=== PATIENT | male | born 1975 | race Caucasian/White ===

== ENCOUNTER 2019-11-08 17:37 | Outpatient (CLI) | payer OTHER, SELFPAY ==
--- NOTE | ~2019-11-08 | XR_ITS ---
XR hand LT min 3V 11/08/2019 18:03 Indication: Left hand pain Procedure: 3 views left hand Comparison: No prior studies for comparison. Findings: There are mild degenerative changes of the first CMC joint. No acute fracture, subluxation or dislocation. No significant soft tissue abnormality. No radiopaque foreign bodies. There is mild d egenerative change of the first MCP joint. 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 Reviewed, dictated and finalized at location A. 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
== END 2019-11-08 17:38 | disposition home or self-care (01) ==
LOC: ANHIMG 17:47
PROVIDERS: PCP Family Medicine; Visit Provider Family Medicine
DX: M79.642 Pain in left hand (principal); M19.042 Primary osteoarthritis, left hand
CPT/HCPCS: 73130

== ENCOUNTER 2020-07-04 13:51 | Outpatient (CLI) | payer OTHER, SELFPAY ==
--- NOTE | ~2020-07-04 | XR_ITS ---
EXAMINATION: XR forearm RT 2V DATE: 07/04/2020 14:12 INDICATION: Right forearm pain. TECHNIQUE: 2 views of right forearm were obtained. COMPARISON: None. FINDINGS: Bone alignment is normal. No fracture. Joint spaces are well maintained. There is no elbow joint effusion. IMPRESSION: 1. No fracture. Reviewed, dictated and finalized at location A. IMPRESSION: 1. No fracture.
== END 2020-07-04 13:52 | disposition home or self-care (01) ==
LOC: ANHIMG 13:58
PROVIDERS: PCP Family Medicine; Visit Provider Nurse Practitioner Family
DX: M79.631 Pain in right forearm (principal)
CPT/HCPCS: 73090

== ENCOUNTER 2022-03-30 14:20 | Emergency (ER) | payer OTHER, SELFPAY ==
[2022-03-30 14:35] VITALS: BP 125/77; PULSE 85; RESP 16; TEMP 37
--- NOTE | 2022-03-30 14:47 | ED.SKABFB ---
HPI - Skin/Abscess/Foreign Bdy General Chief complaint: Skin/Abscess/Foreign Body Stated complaint: insect bite Time Seen by Provider: 03/30/22 14:47 History of Present Illness HPI narrative: Adam Montemayor is a 46 yo male with anxiety, HTN, seasonal allergies, remote back surgery, asthma, GERD, comes with small abscess to the left upper arm. Multiple small scabs to L lower arm Related Data Home Medications Medication Instructions Recorded Confirmed doxepin 10 mg capsule cap 03/30/22 03/30/22 ergocalciferol (vitamin D2) 1,250 cap 03/30/22 mcg (50,000 unit) capsule escitalopram oxalate 20 mg tablet tablet 03/30/22 gabapentin 600 mg tablet tablet 03/30/22 lisinopril 20 mg tablet tablet 03/30/22 loratadine 10 mg tablet tablet 03/30/22 meloxicam 15 mg tablet tablet 03/30/22 mometasone-formoterol HFA 100 inh inhalation 03/30/22 mcg-5 mcg/actuation aerosol inhaler (Dulera) montelukast 10 mg tablet tablet 03/30/22 oxycodone-acetaminophen 10 mg-325 tablet 03/30/22 mg tablet sucralfate 1 gram tablet tablet 03/30/22 triamcinolone acetonide 0.1 % ea topical 03/30/22 topical ointment Allergies Allergy/AdvReac Type Severity Reaction Status Date / Time No Known Allergies Allergy Verified 03/30/22 14:21 Review of Systems Review of Systems: CONSTITUTIONAL: Denies fever, chills, sweats. EYES: Denies visual changes, redness, discharge. ENT: Denies rhinorrhea, congestion, sore throat, otalgia. CARDIOVASCULAR: Denies chest pain, palpitations, edema. RESPIRATORY: Denies dyspnea, wheezing, cough GASTROINTESTINAL: Denies abdominal pain, nausea, vomiting, diarrhea. GENITOURINARY: Denies dysuria, hematuria, abnormal discharge SKIN: Denies rash or itching. Abscess on left upper arm with scabs below NEUROLOGIC: Denies numbness, or focal weakness. PSYCHIATRIC: Denies anxiety or depression. [facility] Past Medical History Medical History (Updated 03/30/22 @ 15:23 by Maryan Estrella CNP) Asthma Chronic pain GERD (gastroesophageal reflux disease) HTN (hypertension) Social History Social History (Updated 03/30/22 @ 14:54 by Maryan Estrella CNP) Smoking status: Never smoker Comments At time of signature, I agree with nursing past medical, surgical, social and family history. There is no relevant family history pertinent to the presenting complaint. Exam Narrative: GENERAL: This is a well-nourished, well-developed patient, in mild distress. HEAD: normocephalic, atraumatic. EYES: PERRL. Sclera clear/white. Vision is grossly intact. EARS: External ears normal, auditory canals clear and without drainage, TMs normal without perforation. Hearing grossly intact. NOSE: External nose normal without nasal discharge, nares without redness, no rhinorrhea. THROAT: Mucous membranes moist, posterior pharynx NECK: Neck supple, non-tender CARDIOVASCULAR: Regular rate and rhythm without murmurs, gallops, or rubs. RESPIRATORY: Clear to auscultation. Breath sounds equal bilaterally. No wheezes, rales, or rhonchi. GASTROINTESTINAL: Abdomen soft, non-tender, SKIN: warm, intact with no suspicious lesions or rash, good texture and turgor. NEURO: awake, alert, and oriented to person, place and time. There were no obvious focal neurologic abnormalities. Steady gait EXTREMITIES: Normal range of motion. Left extremity heavily tattooed with multiple small scabbed areas from hand all the way up to the left upper lateral bicep there is a 3 x 3 area of induration and erythema with odiferous discharge BACK: Nontender without deformity Course Course Emergency Course: Needle aspiration with an 18-gauge needle of 3-3 abscess of lateral left forearm Placed on back trauma and Keflex Follow-up with primary care doctor Level of Care: Express Care Visit Vital Signs Vital signs: Vital Signs Temperature 98.6 F 03/30/22 14:35 Pulse Rate 85 03/30/22 14:35 Respiratory Rate 16 03/30/22 14:35 Blood Pressure 125/77 03/30/22
== END 2022-03-30 15:45 | disposition home or self-care (01) ==
PROVIDERS: Emergency Provider Nurse Practitioner; PCP Family Medicine
DX: L02.414 Cutaneous abscess of left upper limb (principal); J45.909 Unspecified asthma, uncomplicated; K21.9 Gastro-esophageal reflux disease without esophagitis; I10 Essential (primary) hypertension
CPT/HCPCS: 10160; 99213; G0463

== ENCOUNTER 2022-12-22 14:34 | Outpatient (CLI) | payer BC, OTHER, SELFPAY ==
--- NOTE | ~2022-12-22 | CT_ITS ---
EXAMINATION: CT abdomen pelvis w con INDICATION: Abdominal pain TECHNIQUE: Computed tomographic images of the abdomen and pelvis were obtained after the administrati on of 100 cc of Omnipaque 350 intravenous contrast. The dose-length product (DLP) was 1339.26 mGy-cm. Automated exposure control and iterative reconstruction technique were employed. COMPARISON: 11/06/2014 FINDINGS: Minimal dependent atelectasis is present in the lung bases. The heart size is normal. There is a 7 mm cyst of the liver. The spleen, pancreas, gallbladder, and left adrenal gland are normal. T here is a stable 7 mm mass of the right adrenal gland, consistent with an adenoma. The kidneys are un remarkable. No pathologically enlarged abdominal or pelvic lymph nodes are identified. No free intrap eritoneal gas or evidence of bowel obstruction. The appendix is normal. There are bilateral inguinal hernias and a small umbilical hernia containing fat. There are chronic bilateral L4 pars defects with grade 1 anterolisthesis of L4 on L5. IMPRESSION: 1. Bilateral inguinal and small umbilical hernias containing fat. Reviewed, dictated and finalized at location L.
== END 2022-12-22 14:35 | disposition home or self-care (01) ==
PROVIDERS: PCP Family Medicine; Visit Provider Family Medicine
DX: R10.9 Unspecified abdominal pain (principal); K40.20 Bilateral inguinal hernia, without obstruction or gangrene, not specified as recurrent; K42.9 Umbilical hernia without obstruction or gangrene
CPT/HCPCS: 74177; Q9967

== ENCOUNTER 2024-07-16 09:22 | Outpatient (CLI) | payer OTHER, SELFPAY ==
--- NOTE | ~2024-07-16 | XR_ITS ---
EXAMINATION: XR hand LT min 3V, XR hand RT min 3V DATE: 07/16/2024 09:44 INDICATION: Carpal tunnel syndrome. Pain at the bilateral first carpal metacarpal joints extending to the wrists. TECHNIQUE: 1. Posteroanterior, oblique and lateral views of the left hand were obtained. 2. Posteroanterior, oblique and lateral views of the right hand were obtained. COMPARISON: None. FINDINGS: Bone alignment is normal at both hands. No fracture. Relatively symmetric typical distribution of nenita yarticular osteoarthritis at the bilateral hands and wrists, moderate at the left first carpometacarp al and mild at the right first carpometacarpal, bilateral first-third metacarpophalangeal and minimal to mild at multiple bilateral interphalangeal joints with distal predominance. No erosions to sugges t inflammatory arthritis. There are a few surgical clips in the palmar soft tissues between the right fourth and fifth metacarpophalangeal joints. Soft tissues are otherwise unremarkable. IMPRESSION: 1. Typical relatively symmetric pattern of polyarticular osteoarthritis at the bilateral hands, moder ate at the left first carpometacarpal joint and otherwise mild. Reviewed, dictated and finalized at location A. IMPRESSION: 1. Typical relatively symmetric pattern of polyarticular osteoarthritis at the bilateral hands, moderate at the left first carpometacarpal joint and otherwise mild.
== END 2024-07-16 09:23 | disposition home or self-care (01) ==
PROVIDERS: PCP Nurse Practitioner Family; Visit Provider Plastic Surgery
DX: G56.03 Carpal tunnel syndrome, bilateral upper limbs (principal); M18.9 Osteoarthritis of first carpometacarpal joint, unspecified; M19.041 Primary osteoarthritis, right hand; M19.042 Primary osteoarthritis, left hand
CPT/HCPCS: 73130

== ENCOUNTER 2024-09-16 09:40 | Outpatient (CLI) | payer OTHER, SELFPAY ==
--- NOTE | 2024-09-16 11:15 | NEURO_ITS ---
Impression: # Complains of pain in wrist/elbow. Not diabetic. ? # Normal Nerve Conduction Study; No Carpal Tunnel Syndrome or ulnar neuropathy. ? # Normal needle/EMG exam. ? # Clinical correlation recommended. Nerve Conduction Studies Anti Sensory Summary Table ?Stim Site NR Peak (ms) P-T Amp (?V) Site1 Site2 Delta-P (ms) Dist (cm) Walter (m/s) Left Median Anti Sensory (2-3nd Digit) Wrist ? 2.7 51.0 Wrist 2-3nd Digit 2.7 14.0 52 Wrist ? 2.7 34.5 Wrist 2-3nd Digit 2.7 14.0 52 Right Median Anti Sensory (2-3nd Digit) Wrist ? 2.8 33.8 Wrist 2-3nd Digit 2.8 14.0 50 Wrist ? 2.6 44.2 Wrist 2-3nd Digit 2.8 14.0 50 Left Radial Anti Sensory (Base 1st Digit) Wrist ? 1.7 20.7 Wrist Base 1st Digit 1.7 0.0 Right Radial Anti Sensory (Base 1st Digit) Wrist ? 2.3 14.4 Wrist Base 1st Digit 2.3 0.0 Left Ulnar Anti Sensory (5th Digit) Wrist ? 2.3 81.4 Wrist 5th Digit 2.3 14.0 61 Right Ulnar Anti Sensory (5th Digit) Wrist ? 2.2 69.4 Wrist 5th Digit 2.2 14.0 64 Motor Summary Table ?Stim Site NR Onset (ms) O-P Amp (mV) Site1 Site2 Delta-0 (ms) Dist (cm) Walter (m/s) Left Median Motor (Abd Poll Brev) Wrist ? 2.3 4.2 Elbow Wrist 4.9 29.0 59 Elbow ? 7.2 3.8 Right Median Motor (Abd Poll Brev) Wrist ? 3.0 3.8 Elbow Wrist 5.0 30.0 60 Elbow ? 8.0 1.4 Left Ulnar Motor (Abd Dig Minimi) Wrist ? 2.6 7.1 A Elbow Wrist 5.2 31.0 60 A Elbow ? 7.8 5.4 Right Ulnar Motor (Abd Dig Minimi) Wrist ? 2.6 3.0 A Elbow Wrist 5.6 33.0 59 A Elbow ? 8.2 2.3 F Wave Studies ?NR F-Lat (ms) L-R F-Lat (ms) Left Median (Mrkrs) (Abd Poll Brev) ? 28.08 0.91 Right Median (Mrkrs) (Abd Poll Brev) ? 28.99 0.91 Left Ulnar (Mrkrs) (Abd Dig Min) ? 28.20 1.10 Right Ulnar (Mrkrs) (Abd Dig Min) ? 29.30 1.10 EMG ?Side Muscle Nerve Root Ins Act Fibs Amp Dur Recrt Comment Right 1stDorInt Ulnar C8-T1 Nml Nml Nml Nml Nml Right Ext Indicis Radial (Post Int) C7-8 Nml Nml Nml Nml Nml Right Ext Digitorum Radial (Post Int) C7-8 Nml Nml Nml Nml Nml Right BrachioRad Radial C5-6 Nml Nml Nml Nml Nml Right PronatorTeres Median C6-7 Nml Nml Nml Nml Nml Right Abd Poll Brev Median C8-T1 Nml Nml Nml Nml Nml Right ABD Dig Min Ulnar C8-T1 Nml Nml Nml Nml Nml Left 1stDorInt Ulnar C8-T1 Nml Nml Nml Nml Nml Left Ext Indicis Radial (Post Int) C7-8 Nml Nml Nml Nml Nml Left Ext Digitorum Radial (Post Int) C7-8 Nml Nml Nml Nml Nml Left BrachioRad Radial C5-6 Nml Nml Nml Nml Nml Left PronatorTeres Median C6-7 Nml Nml Nml Nml Nml Left Abd Poll Brev Median C8-T1 Nml Nml Nml Nml Nml Left ABD Dig Min Ulnar C8-T1 Nml Nml Nml Nml Nml MTDD
== END 2024-09-16 09:41 | disposition home or self-care (01) ==
PROVIDERS: PCP Nurse Practitioner Family; Visit Provider Plastic Surgery
DX: G56.03 Carpal tunnel syndrome, bilateral upper limbs (principal)
CPT/HCPCS: 95886; 95911

== ENCOUNTER 2024-12-19 10:41 | Outpatient (CLI) | payer OTHER, SELFPAY ==
--- NOTE | 2024-12-19 10:56 | ECG_ITS ---
Test Date: 2024-12-19 11:01:01 Measurements Intervals [place] Rate: 93 P: 42 [place]: 144 QRS: 44 QRSD: 85 T: 21 QT: 312 QTc: 389 Interpretive Statements SINUS RHYTHM NONSPECIFIC T-WAVE ABNORMALITY- INFERIOR LEADS BASELINE ARTIFACT- I, II, III, AVR, AVL BORDERLINE ECG No previous ECG available for comparison Electronically Signed On 12-19-2024 11:11:02 CDT by Bam Borrego D.O.
--- OUTSIDE RECORDS SUMMARY | 2024-12-19 11:36 | XMS_ITS | Encounter Summary ---
Author Organization [facility] Address [address] [place] [address] Phone Care Team Providers Care Vp Site Name Role Phone Earlene Garcia MD Primary Care Provider + Reason for Visit * Reason Comments Medication Refill Encounter Details Date Type Department Care Team (Late st Contact Info) Description 02/17/2020 Refill [facility] - Neurology - [place] [address] [place] [phone] Hector Munguia MD [address] [place] [phone] Medication Refill Social History Tobacco Use Types Packs/Day Years Used Date Smoking Tobacco: Former Cigarettes 1.5 15 0 02/15/1997 - 02/16/2012 Smokeless Tobacco: Former Alcohol Use Standard Drinks/Week Comments No 0 (1 standard drink = 0.6 oz pur e alcohol) Sex and Gender Information Value Date Recorded Sex Assigned at Not on file Legal Sex Male 1:26 PM [employer] Gender Identity Not on file Sexual Orientation Not on file documented as of this encounter Plan of Treatment Not on file documented as of this encounter Visit Diagnoses Not on filedocumented in this encounter Care Teams Vp Site Relationship Specialty Start Date End Date Earlene Garcia MD [address] [place] [id number] PCP - General Family Medicine 6/27/18 documented as of this encounter
--- OUTSIDE RECORDS SUMMARY | 2024-12-19 11:36 | XMS_ITS | Encounter Summary ---
Author Organization [facility] Address [address] [place] [address] Phone Care Team Providers Care [employer] To [employer] Selling Dist[employer] Name Role Phone Earlene Garcia MD Primary Care Provider + Reason for Visit * Reason Comments Medication Refill Encounter Details Date Type Department Care Team (Late st Contact Info) Description 02/23/2021 Refill [facility] - Neurology - [place] [address] [place] [phone] Hector Munguia MD [address] [place] [phone] Medication Refill Social History Tobacco Use Types Packs/Day Years Used Date Smoking Tobacco: Former Cigarettes 1.5 15 0 02/15/1997 - 02/16/2012 Smokeless Tobacco: Former Alcohol Use Standard Drinks/Week Comments No 0 (1 standard drink = 0.6 oz pur e alcohol) Sex and Gender Information Value Date Recorded Sex Assigned at Not on file Legal Sex Male 1:26 PM [employer] Gender Identity Not on file Sexual Orientation Not on file documented as of this encounter Miscellaneous Notes * Telephone Encounter - Renee Abernathy RN - 02/23/2021 1:31 PM CDT Last seen 02/03, attempted to call patient and schedule an appt, phone is not excepting calls documented in this encounter Plan of Treatment Not on file documented as of this encounter Visit Diagnoses Not on filedocumented in this encounter Care Teams [employer] 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
--- OUTSIDE RECORDS SUMMARY | 2024-12-19 11:36 | XMS_ITS | Clinical Summary ---
Author Organization [facility] Address [address] [place] [address] Care Team Providers Care Carpenter Mold Name Role Phone Terry Esteves NP Primary Care Provider Allergies Active Allergy Reactions Criticality Noted Date Comments Adhesive Swelling,Rash,Redness Medium 05/07/2024 Haemophilus Influenzae Type B Swelling Medium 2016 Medications testosterone cypionate (DEPO-TESTOTER ONE) 200 mg/mL injection INJECT 0.5 ML INTRAMUSCULARLY EVERY 2 WEEKS 02/28/20 24 Active triamcinolone (KENALOG) 0.1 % ointment APPLY THIN COAT TO AFFECTED AREA TWICE A DAY 03/06/20 24 Active clobetasoL (TEMOVATE) 0.05 % ointment APPLY A THIN LAYER TO THE AFFECTED AREA(S) BY TOPICAL ROUTE 2 TIMES PER DAY UP TO 14 DAYS AT A TIME 03/06/20 24 Active gabapentin (NEURONTIN) 600 mg tablet Take 1 tablet (600 mg total) by mouth 3 (three) times a day 02/28/20 24 Active lisinopriL (PRINIVIL,ZEST RIL) 20 mg tablet Take 1 tablet (20 mg total) by mouth daily 11/12/19 17 Active loratadine (CLARITIN) 10 mg tablet Take 1 tablet (10 mg total) by mouth daily 11/12/19 17 Active Dulera 100-5 mcg/actuation inhaler Inhale 2 puffs 2 (two) times a day Active meloxicam (MOBIC) 15 mg tablet Take 1 tablet (15 mg total) by mouth daily 11/12/19 17 Active sucralfate (CARAFATE) 1 gram tablet TAKE 1 TABLET BY MOUTH FOUR TIMES A DAY NEEDED Active pantoprazole DR (PROTONIX) 40 mg EC tablet Take 1 tablet (40 mg total) by mouth daily 03/06/20 24 Active cholecalcifero l (VITAMIN D-3) 2000 unit capsule Take 1 capsule (2,000 Units total) by mouth daily 06/20/20 24 Active cyanocobalamin (Vitamin B-12) 1,000 mcg tablet Take 1 tablet (1,000 mcg total) by mouth once a week 06/19/20 24 Active BD Luer-Bel Syringe 3 mL 25 gauge x 1 syringe USE DIRECTED TO INJECT TESTOSTERONE 07/13/20 24 Active BD Luer-Bel Syringe 3 mL 21 gauge x 1 /2 syringe USE DIRECTED TO DRAW UP TESTOSTERONE 07/09/20 24 Active montelukast (SINGULAIR) 10 mg tablet Take 1 tablet (10 mg total) by mouth daily 09/28/19 25 Active amitriptyline (ELAVIL) 10 mg tablet Take 1 tablet (10 mg total) by mouth nightly 30 tablet 11 12/12/19 25 026 Active Active Problems Problem Noted Date Diagnosed Date Lumbar radiculopathy 06/18/2024 Encounters Date Type Department Care Team Description 12/11/2024 2:09 PM CDT - 12/11/2024 11:59 PM CDT Hospital Encounter [facility] [address] [place] [address] Advanced Medicine [address] [place] [address] Emily Gomez MD Lumbar radiculopathy; Spinal stenosis of lumbar region with neurogenic claudication Discharge Disposition: Discharge to home or self care 12/06/2024 Telephone [facility] [address] [place] [address] Advanced Medicine [address] [place] [address] Emily Gomez MD [facility] Preprocedure 11/05/2024 11:52 AM RETURNS PROCESSOR - 11/05/2024 11:59 PM RETURNS PROCESSOR Hospital Encounter [facility] at [facility] Advanced [facility] Advanced Medicine [address] [place] [address] Emily Gomez MD Lumbar radiculopathy (Primary Dx); Cervical radicular pain; Spinal stenosis of lumbar region with neurogenic claudication Discharge Disposition: Discharge to home or self care 11/01/2024 Telephone [facility] Advanced Medicine [address] [place] [address] Emily Gomez MD [facility] Preprocedure 10/23/2024 10:00 AM RETURNS PROCESSOR Therapy 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) 10/07/2024 10:45 AM RETURNS PROCESSOR Therapy [facility] 1 OP Physical Therapy [address] [place] [address] Kristina Crane, PLASTIC SURGERY ASSISTANT 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 Advanced [facility] [address] [facility] Advanced [facility] [address] [place] [address] Emily Gomez MD [facility] Preprocedure 09/25/2024 Telephone [facility] Advanced Medicine [address] [facility] Advanced Medicine [address] [place] [address] Emily Gomez MD Transportation from Last 3 Months Surgical History Surgery Date Site/Laterality Comments VENTRAL HERNIA REPAIR LYMPH NODE DISSECTION Medical History Medical History Date Comments Hypertension Asthma Anxiety Low back pain GERD (gastroesophageal reflux disease) Chronic pain disorder Family History * Patient is adopted Medical History Relation Name Comments No Known Problems Father No Known Problems Mother Relation Name Status Comments Father Mother Social History Tobacco Use Types Packs/Day Years Used Date Smoking Tobacco: Former Cigarettes 1 10.3 0 09/18/2014 - 09/18/2009 Vaping Tobacco Cessation:Counseling Given: Yes Comments:Vaping occasionally AUDIT-C Answer Date Recorded Q1: How often do you have a drink containing alcohol? Never 12/11/2024 Q2: How many drinks containi ng alcohol do you have on a typical day when you are drinking? Patient does not drink Q3: How often do you have si x or more drinks on one occasion? Never 12/11/2024 Hunger Vital Sign Answer Date Recorded Within the past 12 months, y ou worried that your food would run out before you got the money to buy more. Never true 11/05/19 25 Within the past 12 months, t he food you bought just didn't last and you didn't have money to get more. Never true 11/05/2024 Sex and Gender Information Value Date Recorded Sex Assigned at Not on file Legal Sex Male 10:23 AM RETURNS PROCESSOR Gender Identity Male 06/13/2024 11:33 AM CDT Sexual Orientation Straight 06/13/2024 11 :33 AM CDT Obstetrics History Last Filed Vital Signs Vital Sign Reading Time Taken Comments Blood Pressure 123/90 12/11/2024 4:37 PM CDT Pulse 85 12/11/2024 4:37 PM CDT Temperature 36.5 C (97.7 F) 12/11/2024 2:21 PM CDT Respiratory Rate 14 12/11/2024 4:37 PM CDT Oxygen Saturation 97% 12/11/2024 4:37 PM CDT Inhaled Oxygen Concentration - - Weight 112 kg (247 lb) 12/11/2024 2:21 PM CDT Height 177.8 cm (5' 10 ) 12/11/2024 2:21 PM CDT Body Mass Index 35.44 12/11/2024 2:21 PM CDT Plan of Treatment Health Maintenance Due Date Last Done Comments Colon Cancer Screening-Colonoscopy 1973 Depression Screening 1973 Hepatitis C Screening 1973 Prostate Cancer Screening-PSA 1973 DTaP/Tdap/Td Vaccine (1 - Tdap) 1984 Hepatitis B Screening 1991 Regular Well Visit/Exam 18-64 1991 Pneumococcal vaccine <65 (1 of 2 - PCV) 1992 Zoster Vaccine (1 of 2) 2023 Influenza Vaccine (Season Ended) 2025 06/23/20 15 Goals Goal Patient Goal Type Associated Problems Recent Progress Patient-Stated? Author CCM Chronic Pain Care Plan Chronic Care Management Worsening( 3:19 PM CDT) No Tessa Mcelroy, RN Note: Problem: Chronic Pain Goals: 1. Minimize further functional decline 2. Maximize quality of life 3. Control pain Strategies: - Activity/exercise program recommendation - Conservative stepwise pain medicine strategy with multi-disciplinary approach - Recommend healthy lifestyle strategies and compensatory methods as needed Procedures Procedure Name Priority Date/Time Associated Diagnosis Comments PAIN MGMT IMAGING LUMBAR/SACRAL SELECTIVE NERVE ROOT INJ (TFE) BILATERAL Schedule Routine, Read Routine (OP Routine) 12/11/2024 4:33 PM CDT Lumbar radiculopathy Spinal stenosis of lumbar region with neurogenic claudication PAIN MGMT IMAGING CERVICAL/THORACIC EPIDURAL STEROID INJ Schedule Routine, Read Routine (OP Routine) 11/05/2024 1:31 PM RETURNS PROCESSOR Cervical radicular pain from Last 3 Months Results * Imaging Lumbar/Sacral Selective Nerve Root INJ (TFE) Bilateral ([id number]) (12/11/2024 4:33 PM CDT) Narrative [facility] - 12/11/2024 4:33 PM CDT The images from this study are not interpreted by Radiology. Please refer to the physician's procedure / OR operative note. Lorene Martin MD IMG PAIN MGMT PROCE DURES Final Result Performing Organization Address [facility] Phone Number [email or web address] * Imaging Cervical/Thoracic Epidural Steroid INJ ([id number]) (11/05/2024 1:31 PM RETURNS PROCESSOR) Narrative [facility] - 11/05/2024 1:31 PM RETURNS PROCESSOR The images from this study are not interpreted by Radiology. Please refer to the physician's procedure / OR operative note. Emily Gomez MD IMG PAIN MGMT PROCEDURES Fi nal Result Performing Organization Address [facility] Phone Number [facility] from Last [address] [facility] Care Teams Carpenter Mold Relationship Specialty Start Date End Date Terry Esteves NP [address] [place] [address] PCP - General Family Medicine 03/19/24
--- OUTSIDE RECORDS SUMMARY | 2024-12-19 11:36 | XMS_ITS | Clinical Summary ---
Author Organization [facility] Address [address] [facility] [place] [address] Phone Care Team Providers Care Spray Operator Name Role Phone Earlene Garcia MD Primary Care Provider + Allergies Active Allergy Reactions Criticality Noted Date Comments Influenza Virus Vaccine Swelling 01/24/2018 Medications HYDROcodone-jean carlos taminophen (NORCO) 10-325 MG Tablet Take 1 Tab by mouth every 6 hours as needed. 0 01/06/2018 Active gabapentin (NEURONTIN) 300 MG Capsule TAKE 600 mg CAPSULE BY MOUTH THREE TIMES A DAY 4 01/10/2018 Active Meloxicam 15 MG Tablet Take 1 Tab by mouth daily. 4 01/01/2018 Active lisinopril (PRINIVIL, ZESTRIL) 20 MG Tablet Take 20 mg by mouth daily. 4 01/09/2018 Active loratadine (CLARITIN) 10 MG Tablet Take 10 mg by mouth daily. 4 01/03/2018 Active DULERA 100-5 MCG/ACT Aerosol INHALE 2 PUFFS BY MOUTH TWICE A DAY 11 01/03/2018 Active triamcinolone (KENALOG) 0.1 % Cream APPLY A THIN LAYER TO THE AFFECTED AREA 2 TIMES A DAY 5 01/03/2018 Active sucralfate (CARAFATE) 1 GM Tablet 4 times daily. 5 01/08/2018 Active montelukast (SINGULAIR) 10 MG Tablet Take 10 mg by mouth daily. 4 01/20/2018 Active MAGNESIUM PO Take 500 mg by mouth 2 times daily. Active BANOPHEN 25 MG Capsule TAKE 2 CAPSULES BY MOUTH EVERY 4 HOURS NEEDED 5 03/23/2018 Active divalproex (DEPAKOTE ER) 250 MG TABLET SR 24 HR TAKE 1 TAB BY MOUTH DAILY X 2 WEEKS, THEN INCREASE TO 1 TAB BY MOUTH TWICE DAILY THEREAFTER. 60 Tab 2 01/28/2019 Active topiramate (TOPAMAX) 100 MG Tablet TAKE 1 TABLET BY MOUTH TWICE A DAY 60 Tab 11 02/17/2020 Active Active Problems Problem Noted Date Diagnosed Date Intractable chronic migraine without aura and without status migrainosus 07/17/2018 Family History * Patient is adopted Relation Name Status Comments Father Other Mother Other Social History Tobacco Use Types Packs/Day Years Used Date Smoking Tobacco: Former Cigarettes 1.5 15 0 02/15/1997 - 02/16/2012 Smokeless Tobacco: Former Tobacco Cessation:Counseling Given: No Alcohol Use Standard Drinks/Week Comments No 0 (1 standard drink = 0.6 oz pur e alcohol) Sex and Gender Information Value Date Recorded Sex Assigned at Not on file Legal Sex Male 1:26 PM COMMISSIONING MANAGER Gender Identity Not on file Sexual Orientation Not on file Last Filed Vital Signs Vital Sign Reading Time Taken Comments Blood Pressure 118/78 02/01/2019 1:33 PM CDT Pulse 77 02/01/2019 1:33 PM CDT Temperature 37 C (98.6 F) 02/01/2019 1:33 PM CDT Respiratory Rate 18 02/01/2019 1:33 PM CDT Oxygen Saturation 99% 02/01/2019 1:33 PM CDT Inhaled Oxygen Concentration - - Weight 101.2 kg (223 lb) 02/01/2019 1:33 PM CDT Height 177.8 cm (5' 10 ) 02/01/2019 1:33 PM CDT Body Mass Index 32 02/01/2019 1:33 PM CDT Plan of Treatment Health Maintenance Due Date Last Done Comments Hepatitis C Virus (HCV) Screening 1973 TdaP Immunization 1973 Hepatitis B Immunization (1 of 3 - 19+ 3-dose series) 1992 Cologuard 2023 Immunochemical Fecal Occult Blood 2023 Pneumococcal Immunization (5 0+ years) (1 of 1 - PCV) 2023 Zoster Immunization (1 of 2) 2023 Influenza Immunization (#1) 2024 06/23/2015 SARS-COV-2 Immunization ( season) 2024 Colonoscopy 06/06/2028 06/06/2018 Colorectal Cancer Screening 06/06/2028 Respiratory Syncytial Virus (RSV) Immunization (Adult) (1 - 1-dose 75+ series) 2048 06/06/2018 Meningococcal Immunization (ACWY) Aged Out No longer eligible based on patient's age to complete this topic Rotavirus Immunization Aged Out No lo nger eligible based on patient's age to complete this topic Insurance MEDICAID [employer]ICA[employer] [place] Care Teams Spray Operator Relationship Specialty Start Date End Date Earlene Garcia MD [address] [place] [id number] PCP - General Family Medicine 03/14/18
--- OUTSIDE RECORDS SUMMARY | 2024-12-19 11:36 | XMS_ITS | Clinical Summary ---
Author Organization [facility] Address [address] [place] [address] Care Team Providers Care Public Health Educator Name Role Phone None, Provider MD Primary Care Provider Unavaila ble Allergies No known active allergies Medications No known medications Social History Tobacco Use Types Packs/Day Years Used Date Smoking Tobacco: Never Smokeless Tobacco: Never Tobacco Cessation:Counseling Given: Not Answered Alcohol Use Standard Drinks/Week Comments Not Currently 0 (1 standard drink = 0.6 oz pur e alcohol) Sex and Gender Information Value Date Recorded Sex Assigned at Not on file Legal Sex Male 7:56 PM CDT Gender Identity Not on file Sexual Orientation Not on file Last Filed Vital Signs Vital Sign Reading Time Taken Comments Blood Pressure 130/98 02/06/2024 8:55 PM CDT Pulse 64 02/06/2024 8:55 PM CDT Temperature 36.6 C (97.8 F) 02/06/2024 8:55 PM CDT Respiratory Rate 18 02/06/2024 8:55 PM CDT Oxygen Saturation 98% 02/06/2024 8:55 PM CDT Inhaled Oxygen Concentration - - Weight 107.8 kg (237 lb 10.5 oz) 02/06/2024 6:33 PM CDT Height 177.8 cm (5' 10 ) 02/06/2024 6:33 PM CDT Body Mass Index 34.1 02/06/2024 6:33 PM CDT Plan of Treatment Health Maintenance Due Date Last Done Comments Colorectal Cancer Screening Colonoscopy (10 Years) 1973 Annual Physical 1976 Hepatitis C 1991 DTaP, Tdap and Td Vaccines ( 1 - Tdap) 1992 Hepatitis B Vaccines (1 of 3 - 19+ 3-dose series) 1992 Zoster Vaccines (1 of 2) 2023 COVID-19 Vaccine (2023-2 5 season) 2024 Influenza Adult (#1) 2024 06/23/2015 Meningococcal B Vaccine Aged Out No l onger eligible based on patient's age to complete this topic Meningococcal Vaccine Aged Out No wilfredo charly eligible based on patient's age to complete this topic Pneumococcal Vaccine: Pediat rics (0 to 5 Years) and At-Risk Patients (6 to 64 Years) Aged Out No longer eligi ble based on patient's age to complete this topic RSV Immunizations Under 20 Months Aged Out No longer eligible based on patient's age to complete this topic Insurance Care Teams Public Health Educator Relationship Specialty Start Date End Date None, Provider, MD PCP - General UNKNOWN PHYSICIAN SPECIALTY 02/06/24
--- OUTSIDE RECORDS SUMMARY | 2024-12-19 11:36 | XMS_ITS | Referral Summary ---
Author Organization [facility] Address [address] [place] [address] Care Team Providers Care Allied Health Professional Name Role Phone Terry Esteves NP Primary Care Provider [phone] Encounters Date Type Department Care Team Description 12/11/2024 2:09 PM CDT - 12/11/2024 11:59 PM CDT Hospital Encounter [facility] Advanced [facility] [address] [place] [address] Advanced Medicine [address] [place] [address] Emily Gomez MD Lumbar radiculopathy; Spinal stenosis of lumbar region with neurogenic claudication Discharge Disposition: Discharge to home or self care 12/06/2024 Telephone [facility] [address] [place] [address] Advanced Medicine [address] [place] [address] Emily Gomez MD PMC Preprocedure 11/05/2024 11:52 AM INFORMATION CODER - 11/05/2024 11:59 PM INFORMATION CODER Hospital Encounter [facility] [address] [place] [address] Advanced Medicine [address] [place] [address] Emily Gomez MD Lumbar radiculopathy (Primary Dx); Cervical radicular pain; Spinal stenosis of lumbar region with neurogenic claudication Discharge Disposition: Discharge to home or self care 11/01/2024 Telephone [facility] [address] [place] [address] Advanced Medicine [address] [place] [address] Emily Gomez MD PMC Preprocedure 10/23/2024 10:00 AM INFORMATION CODER Therapy [facility] Office [facility] 1 OP Physical Therapy [address] [place] [address] Spike Hill, TIER TRUCK DRIVER 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); Lumbar radiculopathy 10/17/2024 12:45 PM INFORMATION CODER Therapy [facility] Office [facility] 1 OP Physical Therapy [address] [place] [address] Terese Colmenares, TIER TRUCK DRIVER 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) 10/16/2024 Telephone [facility] at [address] [address] Emily Gomez MD PMC pre procedure instructions 10/14/2024 10:45 AM INFORMATION CODER Therapy [facility] 1 OP Physical Therapy [address] [place] [address] Spike Hill, TIER TRUCK DRIVER 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) 10/07/2024 10:45 AM INFORMATION CODER Therapy [facility] 1 OP Physical Therapy [address] [place] [address] Kristina Crane, TIER TRUCK DRIVER 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) 10/04/2024 Plan of Care Documentation [facility] 1 OP Physical Therapy [address] [place] [address] 10/04/2024 7:45 AM INFORMATION CODER Therapy [facility] 1 OP Physical Therapy [address] [place] [address] Lindsey Engel, PT 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 [address] [place] [address] Emily Gomez MD Transportation from Last 3 Months Allergies Active Allergy Reactions Criticality Noted Date [...] Syringe 3 mL 21 gauge x 1 09/19 syringe USE DIRECTED TO DRAW UP TESTOSTERONE 07/09/20 24 Active montelukast (SINGULAIR) 10 mg tablet Take 1 tablet (10 mg total) by mouth daily 09/28/19 25 Active amitriptyline (ELAVIL) 10 mg tablet Take 1 tablet (10 mg total) by mouth nightly 30 tablet 11 12/12/19 25 026 Active Active Problems Problem Noted Date Diagnosed Date Lumbar radiculopathy 06/18/2024 Social History Tobacco Use Types Packs/Day Years [...] on file Legal Sex Male 10:23 AM INFORMATION CODER Gender Identity Male 06/13/2024 11:33 AM CDT Sexual Orientation Straight 06/13/2024 11 :33 AM CDT Last Filed Vital Signs Vital Sign Reading [...] 12/11/2024 2:21 PM CDT Plan of Treatment Not on file Goals Goal Patient Goal Type Associated Problems Recent Progress Patient-Stated? Author CCM Chronic Pain Care Plan Chronic Care Management Worsening( 3:19 PM CDT) Tessa Bear RN Note: Problem: Chronic Pain Goals: 1. [...] Read Routine (OP Routine) 11/05/2024 1:31 PM INFORMATION CODER Cervical radicular pain from Last 3 Months Results * Imaging Lumbar/Sacral Selective Nerve Root INJ (TFE) Bilateral ([id number]) (12/11/2024 4:33 PM CDT) Narrative [facility] - 12/11/2024 4:33 PM CDT The images from this study are not interpreted by Radiology. Please refer to the physician's procedure / OR operative note. us Lorene Martin MD IMG PAIN MGMT PROCE DURES Final Result [facility] * Imaging Cervical/Thoracic Epidural Steroid INJ ([id number]) (11/05/2024 1:31 PM INFORMATION CODER) Narrative [facility] - 11/05/2024 1:31 PM INFORMATION CODER The images from this study are not interpreted by Radiology. Please refer to the physician's procedure / OR operative note. us Emily Gomez MD IMG PAIN MGMT PROCEDURES Fi nal Result [facility] from Last 3 Months Insurance [facility] Care Teams Allied Health Professional Relationship Specialty Start Date End Date Terry Esteves NP [address] [place], [place] [address] [address] PCP - General Family Medicine 03/19/24
--- OUTSIDE RECORDS SUMMARY | 2024-12-19 11:36 | XMS_ITS | CONTINUITY OF CARE DOCUMENT ---
Author Name luis smith Address Unknown Organization [facility] Address [address] [facility] [address] [place] [address] Phone [phone] Care Team Providers Care News Camera Person Name Role Phone Cleve Jimenez MD Unavailable Cleve Jimenez MD Unavailable [phone] INSURANCE PROVIDERS Payer name Policy type / Coverage type [place] [id number] MEDICA[employer] Medicaid [id number]
--- OUTSIDE RECORDS SUMMARY | 2024-12-19 11:36 | XMS_ITS | Clinical Summary ---
Author Organization [facility] Address [address] [place] [address] Care Team Providers Care Script Reader Name Role Phone Earlene Garcia MD Primary Care Provider Source Comments [facility],non-owned Affiliates and Associated Physician Practices is amultiple site organization consisting of ambulatory clinics and hospital sitesin [place], [place], [place] and [place]. This disclosure is being madepursuant to the Care Everywhere program and may not contain all information available regarding this patient. Last updated 18.[facility] Allergies Active Allergy Reactions Criticality Noted Date Comments Flu Virus Vaccine Swelling Low 12/14/2016 Medications * Be aware that medications may not be up to date on this document. Alwaysverify current medications with the patient. Medication Sig Dispensed Refills Start Date End Date Status meloxicam (MOBIC) 15 MG tablet Take 15 mg by mouth DAILY. 11/12/2016 Active montelukast (SINGULAIR) 10 MG tablet Take 10 mg by mouth DAILY. 11/12/2016 Active lisinopril (PRINIVIL; ZESTRIL) 20 MG tablet Take 20 mg by mouth DAILY. 11/12/2016 Active HYDROcodone-acetamino phen (NORCO) 10-325 MG tablet Take 10 tablets by mouth q6h PRN. 11/24/2016 Active loratadine (CLARITIN) 10 MG tablet Take 10 mg by mouth DAILY. 11/12/2016 Active budesonide-formoterol (SYMBICORT) 80-4.5 MCG/ACT inhaler Inhale 4.5 Inhalers by mouth. 12/14/2016 Active DULoxetine (CYMBALTA) 30 MG capsule Take 30 mg by mouth DAILY. 11/12/2016 Active famotidine (PEPCID) 20 MG tablet Take 20 mg by mouth BID. 12/14/2016 Active gabapentin (NEURONTIN) 300 MG capsule Take 300 mg by mouth TID. 11/12/2016 Active doxepin (SINEQUAN) 10 MG capsule 05/03/2021 Active vitamin D, ergocalciferol, (DRISDOL) 1.25 MG (26756 UT) capsule 08/07/2021 Active escitalopram (LEXAPRO) 20 MG tablet 08/09/2021 Active sucralfate (CARAFATE) 1 GM tablet 08/05/2021 Active sulfamethoxazole-trim ethoprim (BACTRIM DS; SEPTRA DS) 800-160 MG tablet 08/09/2021 Active tamsulosin (FLOMAX) 0.4 MG capsule 08/09/2021 Active triamcinolone acetonide (KENALOG) 0.1 % cream 02/23/2021 Active topiramate (TOPAMAX) 100 MG tablet 01/25/2021 Active Active Problems Problem Noted Date Diagnosed Date Neck pain 08/11/2021 Dysphagia 05/22/2018 Encounters Date Type Department Care Team Description 10/25/2024 1:08 PM ONLINE MEDIA DIRECTOR - 10/25/2024 11:59 PM ONLINE MEDIA DIRECTOR Hospital Encounter [address] [address] Berna Duke MD Discharge Disposition: Home or Self Care 10/25/2024 Travel from Last 3 Months Social History Tobacco Use Types Packs/Day Years Used Date Smoking Tobacco: Former Cigarettes Q uit: 09/18/2013 Smokeless Tobacco: Former Tobacco Cessation:Counseling Given: Yes Alcohol Use Standard Drinks/Week Comments Yes 5 (1 standard drink = 0.6 oz pur e alcohol) Sex and Gender Information Value Date Recorded Sex Assigned at Not on file Gender Identity Not on file Sexual Orientation Not on file Last Filed Vital Signs Vital Sign Reading Time Taken Comments Blood Pressure 118/81 08/11/2021 9:50 AM ONLINE MEDIA DIRECTOR Pulse 107 08/11/2021 9:50 AM ONLINE MEDIA DIRECTOR Temperature 36.8 C (98.2 F) 08/11/2021 9:50 AM ONLINE MEDIA DIRECTOR Respiratory Rate 16 05/22/2018 9:16 AM CDT Oxygen Saturation 95% 08/11/2021 9:50 AM ONLINE MEDIA DIRECTOR Inhaled Oxygen Concentration - - Weight 102.1 kg (225 lb) 08/11/2021 9:50 AM ONLINE MEDIA DIRECTOR Height 177.8 cm (5' 10 ) 08/11/2021 9:50 AM ONLINE MEDIA DIRECTOR Body Mass Index 32.28 08/11/2021 9:50 AM ONLINE MEDIA DIRECTOR Plan of Treatment Health Maintenance Due Date Last Done Comments COLOGUARD (AGES 45-75) - COL ON CA SCREENING 1973 COLON MONITORING 1973 COLONOSCOPY - COLON CA SCREENING 1973 CT COLONOGRAPHY - COLON CA SCREENING 1973 Colorectal Cancer Screening 1973 FIT - COLON CA SCREENING 1973 FLEX SIG - COLON CA SCREENING 1973 HIV SCREENING 1988 HEPATITIS C SCREENING 10/16/1991 DTAP/TDAP/TD VACCINES (1 - Tdap) 1992 HEPATITIS B VACCINE (1 of 3 - 19+ 3-dose series) 1992 SCREENING FOR DIABETES 08/11/2021 LIPID TESTING 04/20/2023 04/20/2018 PNEUMOCOCCAL VACCINE 50+ (1 of 1 - PCV) 2023 ZOSTER VACCINE (1 of 2) 2023 COVID-19 VACCINE (1 - 2023-2 5 season) 2024 DEPRESSION SCREENING 09/18/2024 HIB VACCINE Aged Out No longer eligi ble based on patient's age to complete this topic HPV VACCINE Aged Out No longer eligi ble based on patient's age to complete this topic MENINGOCOCCAL (Group B) VACC INE SHARED DECISION-MAKING Aged Out No longer eligibl e based on patient's age to complete this topic MENINGOCOCCAL GROUPS A/C/Y/W VACCINE Aged Out No longer eligible b ased on patient's age to complete this topic Procedures Procedure Name Priority Date/Time Associated Diagnosis Comments US ELASTOGRAPHY Routine 10/25/2024 2:06 PM ONLINE MEDIA DIRECTOR Nonalcoholic steatohepatitis (KENNEDY) from Last 3 Months Results * US Elastography (10/25/2024 2:06 PM ONLINE MEDIA DIRECTOR) Anatomical Region Laterality Modality Abdomen Ultrasound 10/25/2024 1:48 PM ONLINE MEDIA DIRECTOR Impressions 10/25/2024 4:44 PM ONLINE MEDIA DIRECTOR Impression: Stiffness Score: Median 6.4 kPa. IQR/Median ratio: 19.4%. (Ratio should be less than 30%). Report dictated by Berny Sheppard MD (educational institution president). Reference: <5 kPa (1.3 m/sec)- High probability of being normal. <9 kPa (1.7 m/sec)- in the absence of other known clinical signs, rule out compensated advanced chronic liver disease (cACLD). If there is known clinical signs, May need for test for confirmation. 9-13 kPa (1.7-2.1 m/sec)-suggestive of cACLD but need for test for confirmation. >13 kPa (2.1 m/sec)- Rule in cACLD >17 kPa (2.4m/sec)- suggestive of clinically significant portal hypertension (CSPH). > Dictated by Berny Sheppard MD (Check Weigher) 10/25/2024 1:48 PM IDuglas MD have personally reviewed and interpreted this examination/study. > Interpreting Provider: Duglas Posadas MD on 10/25/2024 4:44 PM Narrative 10/25/2024 4:44 PM ONLINE MEDIA DIRECTOR PROCEDURE: US ELASTOGRAPHY, DATE/TIME OF EXAM: 10/25/2024 1:08 PM, LOCATION [facility] INDICATION: K75.81: Nonalcoholic steatohepatitis (KENNEDY) ADDITIONAL CLINICAL INFORMATION: Ordering Provider Reason For Exam: Nonalcoholic steatohepatitis (KENNEDY) COMPARISON: None. Technique: A limited abdominal ultrasound was performed by using real-time and B-Mode to localize an optimal sampling site, to target only liver tissue. 50Hz Shear Wave pulses were applied and the resulting Shear Wave and Propagation Speed detected with an ultrasonic signal, using US Elastography. Skin to liver capsule distance and liver parenchyma were accessed during the entire examination with the US Elastography. At least ten Shear Waves were produced; individual measurements of each Shear Wave were calculated. Patient tolerated the procedure well and was discharged without incident. Findings: The median liver stiffness score was 6.4 kPa. The Interquartile Range (IQR) to Median ratio all measurement 19.4 %. Procedure Note Arlene Posadas MD - 10/25/2024 PROCEDURE: US ELASTOGRAPHY, DATE/TIME OF EXAM: 10/25/2024 1:08 PM,LOCATION [facility] INDICATION: K75.81: Nonalcoholic steatohepatitis (KENNEDY) ADDITIONAL CLINICAL INFORMATION: Ordering Provider Reason For Exam: Nonalcoholic steatohepatitis (KENNEDY) COMPARISON: None. Technique: A limited abdominal ultrasound was performed by usingreal-time and B-Mode to localize an optimal sampling site, to target only liver tissue. 50Hz Shear Wave pulses were applied and the resulting Shear Wave and Propagation Speed detected with an ultrasonic signal, using US Elastography. Skin to liver capsule distance and liver parenchyma were accessed during the entire examination with the US Elastography. At least ten Shear Waves were produced; individual measurements of each Shear Wave were calculated. Patient tolerated the procedure well and was discharged withoutincident. Findings: The median liver stiffness score was 6.4 kPa. The Interquartile Range (IQR) to Median ratio all measurement 19.4 %. Impression: Stiffness Score: Median 6.4 kPa. IQR/Median ratio: 19.4%. (Ratio shouldbe less than 30%). Report dictated by Berny Sheppard MD (educational institution president). Reference: <5 kPa (1.3 m/sec)- High probability of being normal. <9 kPa (1.7 m/sec)- in the absence of other known clinical signs, ruleout compensated advanced chronic liver disease (cACLD). If there is known clinical signs, May need for test for confirmation. 9-13 kPa (1.7-2.1 m/sec)-suggestive of cACLD but need for test for confirmation. >13 kPa (2.1 m/sec)- Rule in cACLD >17 kPa (2.4m/sec)- suggestive of clinically significant portal hypertension (CSPH). > Dictated by Berny Sheppard MD (Check Weigher) 10/25/2024 1:48 PM IDuglas MD have personally reviewed and interpreted this examination/study. > Interpreting Provider: Duglas Posadas MD on 10/25/2024 4:44 PM Berna Duke MD US ORDERABLES from Last 3 Months Care Teams Script Reader Relationship Specialty Start Date End Date Earlene Garcia MD [address] [place] [address] [place] [id number] PCP - General 10/17/16
== END 2024-12-19 10:42 | disposition home or self-care (01) ==
LOC: ANHSURGERY 10:46
PROVIDERS: Visit Provider Plastic Surgery
DX: I10 Essential (primary) hypertension (principal); Z01.818 Encounter for other preprocedural examination; R94.31 Abnormal electrocardiogram [ECG] [EKG]
CPT/HCPCS: 93005

== ENCOUNTER 2024-12-25 00:33 | Day surgery (SDC) | payer OTHER, SELFPAY ==
[2024-12-17 13:32] VITALS: BMI 35.5
--- NOTE | 2024-12-17 13:56 | PC.NURSE ---
Addendum entered by Marli Jasmine RN 12/18/24 11:38: Pt home medication of Lisinopril added to med history. Pt instructed clear liquids to end 8 hours prior to procedure (0130). Original Note: Report to the Outpatient Waiting Room, entrance under the green pavilion located off [facility], at time 0730 on date 12/25/24. Planned Procedure Time: 0930.? Time changes happen often and if your time is changed the preop area will call you the afternoon before. - You and your visitor will be asked to self-screen and do not enter if you have any COVID symptoms. Please call surgeon if you need to reschedule. - A mask is optional within the hospital at this time. Patients may have clear liquids (water, carbonated beverages, clear teas, apple juice) until 3 hours prior to surgery with a maximum of 20 ounces. - No food from midnight until time of surgery and no smoking, or chewing tobacco (or any form of nicotine). No chewing gum, candy or mints. Take only the following medications with a SIP of water on the morning of surgery: DOXAPIN, ESCITALOPRAM, GABAPENTIN, DULERA DO NOT STOP ANY OF YOUR OTHER PRESCRIPTION MEDICATIONS PRIOR TO SURGERY EXCEPT THE FOLLOWING Hold all vitamins and supplements for 3 days per anesthesiologist. Medications to discontinue per physician STOP ALL VITAMINS AND SUPPLIMENTS 3 DAYS PRIOR, ALSO IF PATIENT WANTS TO TAKE MELOXICAM HE IS TO CALL DR MONROY TO SEE IF OK TO TAKE PRIOR TO PROCEDURE. Date to take last dose 12/21/24 FOR ALL VITAMINS AND SUPPLIMENTS Please no make-up, nail irish, hairspray, perfume, deodorant, or body powder the day of surgery.? No jewelry (including any body piercings) or valuables the day of surgery, leave them at home.? Please take a shower or bath the night before, or the morning of, surgery with an antibacterial soap.? Wear comfortable, loose fitting clothing.? Children are encouraged to wear pajamas. - Jewelry must be removed prior to entering the operating room.? Rings and piercings that are not removed may be cut off. - The hospital will not accept responsibility for valuables.? - Please leave all valuables, including medications, at home the day of surgery. If you are going home after surgery, a licensed driver license technician must drive you home.? - NO public transportation without another adult if you receive anesthesia. - We recommend that an adult stay with you for 24 hours following discharge. - We also recommend that you do not drive, make important decision, drink alcoholic beverages, or take any drugs that were not prescribed by your health care provider for at least 24 hours after your discharge time. Follow any additional instructions given to you from your surgeon. Telephone instructions given to DINA MCINTOSH and asked if any additional questions and then verbalized understanding. Patient advised to call surgeon office or pre surgery nurse liaison [phone] if any additional questions.
[2024-12-25] VITALS (11 sets, daily range): BP systolic 101–126; BP diastolic 67–86; PULSE 75–95; RESP 12–20; TEMP 36.1–36.3; O2SAT 92–97; BMI 34.7
--- NOTE | ~2024-12-25 | XR_ITS ---
EXAMINATION: XR surgery orthopedic DATE: 12/25/2024 10:40 INDICATION: Left basal joint arthroplasty TECHNIQUE: 5 fluoroscopic images of the left hand were obtained during procedure performed by Dr. Joel casiano. Radiologist was not present for the imaging or procedure. The amount of fluoroscopy time use d during this procedure was 0.3 minutes. Total DAP was 1.56 cGycm^2. COMPARISON: 07/16/24 FINDINGS: Interval resection of the trapezium for first carpal metacarpal suspension arthroplasty. Subsequent i mages demonstrate a wire extending across the base of the first and second metacarpals. Subsequent im ages demonstrate metallic buttons along side the base of the first and second metacarpals likely for fixation of a tightrope type wire fixation. Alignment of the remaining bones remains essentially laxmi omic. A few tiny bone fragments and expected lucent gas at the resection bed. No fractures. Mild oste oarthritis at the triscaphe and first metacarpophalangeal joint. IMPRESSION: 1. Expected appearance post first carpal metacarpal suspension arthroplasty with trapezial resection. See procedure note for further detail. Reviewed, dictated and finalized at location B. IMPRESSION: 1. Expected appearance post first carpal metacarpal suspension arthroplasty wit h trapezial resection. See procedure note for further detail.
--- OUTSIDE RECORDS SUMMARY | 2024-12-25 00:35 | XMS_ITS | Encounter Summary ---
Author Organization [facility] Address [address] [place] [address] Phone Care Team Providers Care Fundraising Sale Representative Name Role Phone Earlene Garcia MD Primary Care Provider + Reason for Visit * Reason Comments Medication Refill Encounter Details Date Type Department Care Team (Late st Contact Info) Description 02/17/2020 Refill [facility] - [facility]rology - [place] [address] [place] [phone] Hector Munguia MD [address] [place] [phone] Medication Refill Social History Tobacco Use Types Packs/Day Years Used Date Smoking Tobacco: Former Cigarettes 1.5 15 0 02/15/1997 - 02/16/2012 Smokeless Tobacco: Former Alcohol Use Standard Drinks/Week Comments No 0 (1 standard drink = 0.6 oz pur e alcohol) Sex and Gender Information Value Date Recorded Sex Assigned at Not on file 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
--- OUTSIDE RECORDS SUMMARY | 2024-12-25 00:35 | XMS_ITS | Clinical Summary ---
Author Organization [facility] Address [address] [place] [address] Care Team Providers Care Alley Tender Name Role Phone None, Provider MD Primary [...] 2023 COVID-19 Vaccine (2023-2 5 season) 2024 Meningococcal B Vaccine Aged Out No l onger eligible based on patient's age to complete this topic Meningococcal Vaccine Aged Out No wilfredo charly eligible based on patient's age to complete this topic Pneumococcal Vaccine: Pediat rics (0 to 5 Years) and At-Risk Patients (6 to 64 Years) Aged Out No longer eligible b ased on patient's age to complete this topic RSV Immunizations Under 20 Months Aged Out No longer eligible based on patient's age to complete this topic Insurance [employer] Care Teams Alley Tender Relationship Specialty Start Date End Date None, Provider, PCP - General UNKNOWN PHYSICIAN SPECIALTY 02/06/24
--- OUTSIDE RECORDS SUMMARY | 2024-12-25 00:35 | XMS_ITS | Encounter Summary ---
Author Organization [facility] Address [address] [place] [address] Phone Care Team Providers Care Public Policy Analyst Name Role Phone Earlene Garcia MD Primary Care Provider + Reason for Visit * Reason Comments Medication Refill Encounter Details Date Type Department Care Team (Late st Contact Info) Description 02/23/2021 Refill [facility] - [facility]rology - [place] [address]1 [place] [phone] Hector Munguia MD [address] [place] [address] Medication Refill Social History Tobacco Use Types Packs/Day Years Used Date Smoking Tobacco: Former Cigarettes 1.5 15 0 02/15/1997 - 02/16/2012 Smokeless Tobacco: Former Alcohol Use Standard Drinks/Week Comments No 0 (1 standard drink = 0.6 oz pur e alcohol) Sex and Gender Information Value Date Recorded Sex Assigned at Not on file 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
--- OUTSIDE RECORDS SUMMARY | 2024-12-25 00:35 | XMS_ITS | Clinical Summary ---
Author Organization [facility] Address [address] [place] [address] Care Team Providers Care Refrigeration Tech Name Role Phone Earlene Garcia MD Primary Care Provider [phone] Source Comments [facility],non-owned Affiliates and Associated Physician Practices is amultiple site organization consisting of ambulatory clinics and hospital sitesin [place], [place], [place] and [place]. This disclosure is being madepursuant to the Care Everywhere program and may not contain all information available regarding this patient. Last updated 18.[facility] Allergies Active Allergy Reactions Criticality Noted Date [...] Active vitamin D, ergocalciferol, (DRISDOL) 1.25 MG (56981 UT) capsule 08/07/2021 Active escitalopram (LEXAPRO) 20 [...] Department Care Team Description 10/25/2024 1:08 PM FORESTRY TREE PRUNER - 10/25/2024 11:59 PM FORESTRY TREE PRUNER Hospital Encounter [address] [address] Berna Duke MD Discharge Disposition: Home or [...] Comments Blood Pressure 118/81 08/11/2021 9:50 AM FORESTRY TREE PRUNER Pulse 107 08/11/2021 9:50 AM FORESTRY TREE PRUNER Temperature 36.8 C (98.2 F) 08/11/2021 9:50 AM FORESTRY TREE PRUNER Respiratory Rate 16 05/22/2018 9:16 AM CDT Oxygen Saturation 95% 08/11/2021 9:50 AM FORESTRY TREE PRUNER Inhaled Oxygen Concentration - - Weight 102.1 kg (225 lb) 08/11/2021 9:50 AM FORESTRY TREE PRUNER Height 177.8 cm (5' 10 ) 08/11/2021 9:50 AM FORESTRY TREE PRUNER Body Mass Index 32.28 08/11/2021 9:50 AM FORESTRY TREE PRUNER Plan of Treatment Health Maintenance Due Date [...] Comments US ELASTOGRAPHY Routine 10/25/2024 2:06 PM FORESTRY TREE PRUNER Nonalcoholic steatohepatitis (KENNEDY) from Last 3 Months Results * US Elastography (10/25/2024 2:06 PM FORESTRY TREE PRUNER) Anatomical Region Laterality Modality Abdomen Ultrasound 10/25/2024 1:48 PM FORESTRY TREE PRUNER Impressions 10/25/2024 4:44 PM FORESTRY TREE PRUNER Impression: Stiffness Score: Median 6.4 kPa. IQR/Median ratio: 19.4%. (Ratio should be less than 30%). Report dictated by Berny Sheppard MD (head resident). Reference: <5 kPa (1.3 m/sec)- High probability [...] (CSPH). > Dictated by Berny Sheppard MD (Title Inspector) 10/25/2024 1:48 PM IDuglas MD have personally reviewed and interpreted this examination/study. > Interpreting Provider: Duglas Posadas MD on 10/25/2024 4:44 PM Narrative 10/25/2024 4:44 PM FORESTRY TREE PRUNER PROCEDURE: US ELASTOGRAPHY, DATE/TIME OF EXAM: 10/25/2024 1:08 PM, LOCATION [facility] INDICATION: K75.81: Nonalcoholic steatohepatitis (EKNNEDY) ADDITIONAL CLINICAL INFORMATION: Ordering Provider Reason For [...] ELASTOGRAPHY, DATE/TIME OF EXAM: 10/25/2024 1:08 PM,LOCATION [facility] INDICATION: K75.81: Nonalcoholic steatohepatitis (KENNEDY) ADDITIONAL CLINICAL [...] 30%). Report dictated by Berny Sheppard MD (head resident). Reference: <5 kPa (1.3 m/sec)- High probability [...] (CSPH). > Dictated by Berny Sheppard MD (Title Inspector) 10/25/2024 1:48 PM IDuglas MD have personally reviewed and interpreted this examination/study. > Interpreting Provider: Duglas Posadas MD on 10/25/2024 4:44 PM Berna Duke MD US ORDERABLES from Last 3 Months Care Teams Refrigeration Tech Relationship Specialty Start Date End Date Earlene Garcia MD [address] [place] [address] [place] [phone] PCP - General 10/17/16
--- OUTSIDE RECORDS SUMMARY | 2024-12-25 00:35 | XMS_ITS | Clinical Summary ---
Author Organization [facility] Address [facility] [place] [address] Care Team Providers Care Lease Purchase Driver Name Role Phone Terry Esteves NP Primary Care Provider [phone] Allergies Active Allergy Reactions Criticality Noted Date [...] Syringe 3 mL 21 gauge x 1 1/2 syringe USE DIRECTED TO DRAW UP TESTOSTERONE 07/09/20 24 Active montelukast (SINGULAIR) 10 mg tablet Take 1 tablet (10 mg total) by mouth daily 09/28/19 25 Active amitriptyline (ELAVIL) 10 mg tablet Take 1 tablet (10 mg total) by mouth nightly 30 tablet 11 12/12/19 25 026 Active pregabalin (LYRICA) 50 mg capsule Take 1 capsule (50 mg total) by mouth 2 (two) times a day 60 capsule 5 12/20/19 25 025 Active Active Problems Problem Noted Date Diagnosed Date Lumbar radiculopathy 06/18/2024 Encounters Date Type Department Care Team Description 12/19/2024 Orders Only [facility] Advanced Medicine [address] [place] [address] [address] [place] [address] Emily Gomez MD 12/11/2024 2:09 PM CDT - 12/11/2024 11:59 PM CDT Hospital Encounter [facility] [address] [facility] [address] [place] [address] Emily Gomez MD Lumbar radiculopathy; Spinal stenosis of lumbar region with neurogenic claudication Discharge Disposition: Discharge to home or self care 12/06/2024 Telephone [facility] Advanced [place] [address] [facility] [address] [place] [address] Emily Gomez MD [facility] Preprocedure 11/05/2024 11:52 AM BAG MAKER - 11/05/2024 11:59 PM [facility] [address] [place] [address] Advanced Medicine [address] [place] [address] Emily Gomez MD Lumbar radiculopathy (Primary Dx); Cervical radicular pain; Spinal stenosis of lumbar region with neurogenic claudication Discharge Disposition: Discharge to home or self care 11/01/2024 Telephone [facility] [address] [place] [address] [address] [place] [address] Emily Gomez MD [facility] Preprocedure 10/23/2024 10:00 AM BAG MAKER Therapy [facility] Office Bldg 1 OP Physical Therapy [address] [place] [address] Spike Hill, IT AUDIT MANAGER 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); Lumbar radiculopathy 10/17/2024 12:45 PM BAG MAKER Therapy [facility] Office Bldg 1 OP Physical Therapy [address] [place] [address] Terese Colmenares, IT AUDIT MANAGER 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) 10/16/2024 Telephone [facility] Advanced [address] Advanced [facility] [address] [place] [address] Emily Gomez MD PMC pre procedure instructions 10/14/2024 10:45 AM BAG MAKER Therapy [facility] Office Bldg 1 OP Physical Therapy [address] [place] [address] Spike Hill IT AUDIT MANAGER 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) 10/07/2024 10:45 AM BAG MAKER Therapy [facility] Office Bldg 1 OP Physical Therapy [address] [place] [address] Kristina Crane, IT AUDIT MANAGER 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) 10/04/2024 7:45 AM BAG MAKER Therapy [facility] Office Bldg 1 OP Physical Therapy [address] [place] [address] [address] [place] [address] Lindsey Engel Nora, PT 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) 10/04/2024 Plan of Care Documentation [facility] Office Bldg 1 OP Physical Therapy [address] [place] [address] [place] [address] 09/26/2024 Telephone [facility] [address] [facility] [address] [place] [phone] Emily Gomez MD [facility] Preprocedure from Last 3 Months Surgical History Surgery [...] on file Legal Sex Male 10:23 AM BAG MAKER Gender Identity Male 06/13/2024 11:33 AM CDT [...] Care Management Worsening( 3:19 PM CDT) Tessa Bear, RN Note: Problem: Chronic Pain Goals: 1. [...] Read Routine (OP Routine) 11/05/2024 1:31 PM BAG MAKER Cervical radicular pain from Last 3 Months Results * Imaging Lumbar/Sacral Selective Nerve Root INJ (TFE) Bilateral (09190) (12/11/2024 4:33 PM CDT) Narrative [facility] - 12/11/2024 4:33 PM CDT The images from this study are not interpreted by Radiology. Please refer to the physician's procedure / OR operative note. Lorene Martin MD IMG PAIN MGMT PROCE DURES Final Result Performing Organization Address [facility] Co de Phone Number [email or web address] * Imaging Cervical/Thoracic Epidural Steroid INJ (02694) (11/05/2024 1:31 PM BAG MAKER) Narrative [facility] - 11/05/2024 1:31 PM BAG MAKER The images from this study are not interpreted by Radiology. Please refer to the physician's procedure / OR operative note. Emily Gomez MD IMG PAIN MGMT PROCEDURES Fi nal Result Performing Organization Address [facility] Co de Phone Number [email or web address] from Last 3 Months Insurance [facility] Care Teams Lease Purchase Driver Relationship Specialty Start Date End Date Terry Esteves NP [address] [place] [address] PCP - General Family Medicine 03/19/24
--- OUTSIDE RECORDS SUMMARY | 2024-12-25 00:35 | XMS_ITS | Clinical Summary ---
Author Organization [facility] Address [address] 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
--- OUTSIDE RECORDS SUMMARY | 2024-12-25 00:35 | XMS_ITS | CONTINUITY OF CARE DOCUMENT ---
Author Name luis smith Address Unknown Organization [facility] Address [address] [place] [address] Phone [phone] Care Team Providers Care University Lecturer Name Role Phone Cleve Jimenez MD Unavailable [phone] Cleve Jimenez MD Unavailable [phone] INSURANCE PROVIDERS Payer name Policy type / Coverage type [employer] red republican ID [employer] Medicaid [id number]
--- OUTSIDE RECORDS SUMMARY | 2024-12-25 00:35 | XMS_ITS | Referral Summary ---
Author Organization [facility] Address [address] [place] [phone] Care Team Providers Care Storage Specialist Name Role Phone Terry Esteves NP Primary Care Provider [phone] Encounters Date Type Department Care Team Description 12/19/2024 Orders Only [facility] Advanced Medicine [address] [place] [address] Advanced Medicine [address] [place] [address] Emily Gomez MD 12/11/2024 2:09 PM CDT - 12/11/2024 11:59 PM CDT Hospital Encounter [facility] Advanced Medicine [address] [place] [address] Advanced Medicine [address] [place] [phone] Emily Gomez MD Lumbar radiculopathy; Spinal stenosis of lumbar region with neurogenic claudication Discharge Disposition: Discharge to home or self care 12/06/2024 Telephone [facility] [address] [place] [address] Advanced Medicine [address] [place] [phone] Emily Gomez MD PMC Preprocedure 11/05/2024 11:52 AM CIRCULAR GANG SAW OPERATOR - 11/05/2024 11:59 PM CIRCULAR GANG SAW OPERATOR Hospital Encounter [facility] Advanced Medicine [address] [place] [address] Advanced Medicine [address] [place] [phone] Emily Gomez MD Lumbar radiculopathy (Primary Dx); Cervical radicular pain; Spinal stenosis of lumbar region with neurogenic claudication Discharge Disposition: Discharge to home or self care 11/01/2024 Telephone [facility] [address] [place] [address] Emily Gomez MD [facility] Preprocedure 10/23/2024 10:00 AM CIRCULAR GANG SAW OPERATOR Therapy [facility] Medical Office Bldg 1 OP Physical Therapy [address] [place] [address] [place] [address] Spike Hill, RADIOLOGIST CHIEF OF BREAST IMAGING 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); Lumbar radiculopathy 10/17/2024 12:45 PM CIRCULAR GANG SAW OPERATOR Therapy [facility] Medical Office Bldg 1 OP Physical Therapy [address] [place] [address] [place] [phone] Terese Colmenares, RADIOLOGIST CHIEF OF BREAST IMAGING 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) 10/16/2024 Telephone [facility] [address] [place] [address] [facility] [address] [place] [phone] Emily Gomez MD [facility] pre procedure instructions 10/14/2024 10:45 AM CIRCULAR GANG SAW OPERATOR Therapy [facility] Medical Office Bldg 1 OP Physical Therapy [address] [place] [address] [place] [address] Spike Hill, RADIOLOGIST CHIEF OF BREAST IMAGING 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) 10/07/2024 10:45 AM CIRCULAR GANG SAW OPERATOR Therapy [facility] Medical Office Bldg 1 OP Physical Therapy [address] [place] [address] [place] [phone] Kristina Crane, RADIOLOGIST CHIEF OF BREAST IMAGING 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) 10/04/2024 Plan of Care Documentation [facility] Medical Office Bldg 1 OP Physical Therapy [address] [place] [address] [place] [address] 10/04/2024 7:45 AM CIRCULAR GANG SAW OPERATOR Therapy [facility] Office Bldg 1 OP Physical Therapy [address] [place] [phone] Lindsey Engel, PT 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 [...] Read Routine (OP Routine) 11/05/2024 1:31 PM CIRCULAR GANG SAW OPERATOR Cervical radicular pain from Last 3 Months Results * Imaging Lumbar/Sacral Selective Nerve Root INJ (TFE) Bilateral ([id number]) (12/11/2024 4:33 PM CDT) Narrative [facility] - 12/11/2024 4:33 PM CDT The images from this study are not interpreted by Radiology. Please refer to the physician's procedure / OR operative note. us Lorene Martin MD IMG PAIN MGMT PROCE DURES Final Result [facility] * Imaging Cervical/Thoracic Epidural Steroid INJ ([id number]) (11/05/2024 1:31 PM CIRCULAR GANG SAW OPERATOR) Narrative [facility] - 11/05/2024 1:31 PM CIRCULAR GANG SAW OPERATOR The images from this study are not interpreted by Radiology. Please refer to the physician's procedure / OR operative note. us Emily Gomez MD IMG PAIN MGMT PROCEDURES Fi nal Result [facility] from Last 3 Months Insurance [facility] Care Teams Storage Specialist Relationship Specialty Start Date End Date Terry Esteves NP [address] [place] [address] [phone] PCP - General Family Medicine 03/19/24
--- NOTE | 2024-12-25 06:42 | WPDHPUPDATE1 ---
History and Physical Update Update Date/Time: 12/25/24 06:42 Patient seen and examined in pre-operative holding area. No interval change in medical history or symptoms. Patient recalls previous discussion of benefits and alternatives to procedure. Continues to desire to proceed with left basal joint arthroplasty with mini-tightrope and right first cmc joint steroid injection. Reviewed procedure, post-op expectations and risks including but not limited to bleeding, infection, injury to tendon/nerve/vessel, decreased hand function, stiffness, RSD, no change or worsening of symptoms. I discussed the possible use of assistants and their participation in the case. Patient stated understanding and signed the consent form wishing to proceed.
--- NOTE | 2024-12-25 06:42 | W.PM.PROC2 ---
Procedure Note - Detailed Date of Procedure 12/25/24 Pre-op Diagnosis b/l basal joint arthritis Post-op Diagnosis Same Procedure Performed left basal joint artrhoplasty with mini-tightrope and right first cmc joint steroid injection. Surgeon Shelbie Trinidad MD Electromechanical Assembly Technician felicity calzada pa-c Anesthesia General Description of Procedure INFORMED CONSENT: The patient was seen and examined and marked in the pre-op area.? The patient signed the consent form. PROCEDURE IN DETAIL:The patient taken back to OR on the stretcher in supine position. Time out performed with anesthesia, surgeon and staff agreeing on patient's name site and surgery to be performed SCDs were placed on the lower extremities and inflated. A tourniquet was placed on {left} upper extremity and antibiotics given IV After anesthesia administered sedation I injected {8}cc 1%lido with epi and 0.5% marcaine plain at the operative site The?{left upper extremity}?was prepped and draped in sterile fashion the??{left upper extremity} was? exsanguinated with Esmarch bandage and tourniquet inflated to 250mmHg I proceeded with making a longitudinal incison over the left trapezium between 1st and 3rd extensor compartments through skin and dermis with a 15 blade scalpel. Littler scissors were used to spread down through subq to joint capsule. A branch of the dorsal radial sensory nerve was identified and protected throughout the procedure. I used 15 blade to make incision in joint capsule and reflected capsule to expose the trapezium. The dorsal radial artery was identified and protected with proximal retraction. I verified trapezium location with mini c-arm and proceeded with trapezictomy using mcglamery elevator, scalpel and rongeur. After removal mini c-arm verified full resection on multiple views. I irrigtaed with normal saline. Next I made a longiutudinal incision over the base of the second metacarpal through skin and dermis with 15 blade scalpel. Littler scissors were used to dissect down to periorsteum. The periosteum was reflected on the ulnar aspect with freer elevator. Next the arthrex mini c-rgn guide was used and I proceeded with placing the variable gauge k-wire in a radial to ulnar direction from base of first metacarpal out of the proximal third of the 2nd metacarpal base. Wire placement was verified on multiple fluoro views. Using the nitinol loop on the k-wire an arthrex mini-tightrope was placed in standard fshion and secured over the button at second metacarpal. fluoro noted appropriate placement of buttons down to bone, no impingement on range of motion and no subsience on axial load. I irrigated with normal saline and repaired periosteum over button and capsule with 3-0 vicryl. 3-0 vicryl used for dermis and 4-0 chromic for skin. A dressing of xeroform, 4x4, jesus, and a thumb spica splint was applied and secured with an jean carlos bandage after the tourniquet was let down noting the hand was warm and well perfused. Next I injeccted 0.3cc 1%lidocaine plain and 0.7cc Betamethasone 6mg/ml injected into the right first cmc joint under sterile conditions. The patient was then awaken from anesthesia and transferred to the recovery room in stable condition.? Complications - none EBL- 0cc Disposition - home in stable conditions Felicity Calzada PA-C was essential for positioning, retraction, closure and dressing placement [facility] Billing Surgery - Charge Forward: Surgery Billing ([id number] for felicity)
--- NOTE | 2024-12-25 06:45 | PM.HPGS ---
History of Present Illness History of Present Illness Chief complaint: O A First Carpal Metacarpal Joint Narrative: Patient seen and examined in pre-operative holding area. No interval change in medical history or symptoms. Patient recalls previous discussion of benefits and alternatives to procedure. Continues to desire to proceed with left basal joint arthroplasty with mini-tightrope and right first cmc joint steroid injection. Reviewed procedure, post-op expectations and risks including but not limited to bleeding, infection, injury to tendon/nerve/vessel, decreased hand function, stiffness, RSD, no change or worsening of symptoms. I discussed the possible use of assistants and their participation in the case. Patient stated understanding and signed the consent form wishing to proceed. Review of Systems Review of Systems: All systems reviewed & are unremarkable except as noted in HPI and below PMFSH Past Medical History Medical History (Updated 12/17/24 @ 14:52 by Lalit Wiley RN) Asthma Chronic pain GERD (gastroesophageal reflux disease) HTN (hypertension) Social History Social History (Updated 03/30/22 @ 14:54 by Maryan Estrella, TERRAZZO LAYER HELPER) Smoking status: Never smoker Living arrangements: with family Spiritual care concerns: No Meds Home Medications and Allergies Home Medications ?Medication ?Instructions ?Recorded ?Confirmed ?Type doxepin 10 mg capsule 10 mg PO DAILY 03/30/22 12/17/24 History ergocalciferol (vitamin D2) 1,250 1,250 mcg PO DAILY 03/30/22 12/17/24 History mcg (50,000 unit) capsule escitalopram oxalate 20 mg tablet 20 mg PO DAILY 03/30/22 12/17/24 History gabapentin 600 mg tablet 600 mg PO DAILY 03/30/22 12/17/24 History loratadine 10 mg tablet 10 mg PO DAILY 03/30/22 12/17/24 History meloxicam 15 mg tablet 15 mg PO DAILY 03/30/22 12/17/24 History mometasone-formoterol HFA 100 1 inh inhalation DAILY 03/30/22 12/17/24 History mcg-5 mcg/actuation aerosol inhaler (Dulera) montelukast 10 mg tablet 10 mg PO DAILY 03/30/22 12/17/24 History sucralfate 1 gram tablet 1 g PO DAILY 03/30/22 12/17/24 History triamcinolone acetonide 0.1 % 1 applic topical DAILY 03/30/22 12/17/24 History topical ointment amitriptyline 10 mg tablet 10 mg PO DAILY 12/17/24 12/17/24 History clobetasol 0.05 % topical ointment 1 applic topical DAILY 12/17/24 12/17/24 History pantoprazole 40 mg tablet,delayed 40 mg PO DAILY 12/17/24 12/17/24 History release lisinopril 20 mg tablet 20 mg PO DAILY 12/18/24 12/18/24 History Allergies Allergy/AdvReac Type Severity Reaction Status Date / Time No Known Allergies Allergy Verified 07/16/24 08:32 Exam Narrative: unchanged Assessment and Plan Assessment and plan (1) Osteoarthritis of first carpometacarpal joint, unspecified: Qualifiers: Laterality: bilateral Osteoarthritis type: primary Qualified Code(s): M18.0 - Bilateral primary osteoarthritis of first carpometacarpal joints Code(s): M18.9 - Osteoarthritis of first carpometacarpal joint, unspecified Status: Acute Assessment and Plan: cont as above
--- NOTE | 2024-12-25 07:47 | WPDANESEPPF ---
Anes - Initial Pre Proc Eval Procedure: Operation Date: 12/25/24 09:00 Proposed Procedures p Left Basal Joint Arthroplasty - Shelbie Trinidad MD Date/Time: 12/25/24 07:47 Surgeon: Shelbie Trinidad MD Pre Op Diagnosis: O A First Carpal Metacarpal Joint Patient Data Age: 49 Gender: M Height: 1.78 m Weight: 112.4 kg Allergies Allergy/AdvReac Type Severity Reaction Status Date / Time No Known Allergies Allergy Verified 07/16/24 08:32 Home Medications ?Medication ?Instructions ?Recorded ?Confirmed ?Type doxepin 10 mg capsule 10 mg PO DAILY 03/30/22 12/17/24 History ergocalciferol (vitamin D2) 1,250 1,250 mcg PO DAILY 03/30/22 12/17/24 History mcg (50,000 unit) capsule escitalopram oxalate 20 mg tablet 20 mg PO DAILY 03/30/22 12/17/24 History gabapentin 600 mg tablet 600 mg PO DAILY 03/30/22 12/17/24 History loratadine 10 mg tablet 10 mg PO DAILY 03/30/22 12/17/24 History meloxicam 15 mg tablet 15 mg PO DAILY 03/30/22 12/17/24 History mometasone-formoterol HFA 100 1 inh inhalation DAILY 03/30/22 12/17/24 History mcg-5 mcg/actuation aerosol inhaler (Dulera) montelukast 10 mg tablet 10 mg PO DAILY 03/30/22 12/17/24 History sucralfate 1 gram tablet 1 g PO DAILY 03/30/22 12/17/24 History triamcinolone acetonide 0.1 % 1 applic topical DAILY 03/30/22 12/17/24 History topical ointment amitriptyline 10 mg tablet 10 mg PO DAILY 12/17/24 12/17/24 History clobetasol 0.05 % topical ointment 1 applic topical DAILY 12/17/24 12/17/24 History pantoprazole 40 mg tablet,delayed 40 mg PO DAILY 12/17/24 12/17/24 History release lisinopril 20 mg tablet 20 mg PO DAILY 12/18/24 12/18/24 History Patient hx anesthesia problems: none Family hx anesthesia problems: none Results Review: All pre-operative results and documents have been reviewed as part of the pre-operative evaluation. [facility] Past Medical History Medical History Asthma Chronic pain GERD (gastroesophageal reflux disease) HTN (hypertension) Social History Social History Smoking status: Never smoker Living arrangements: with family Spiritual care concerns: No Anes - Eval Final PreProcedure Day of Procedure 12/25/24 07:47 Patient weight: obese Heart: regular rate and rhythm Lungs: clear to auscultation Airway: Mallampati scale class II Neurological: alert and oriented Last oral intake: >/= 8 hours ASA classification: III Emergent: no Anesthetic plan: proceed Anesthesia type and monitoring: general LMA and standard monitoring Results Review: All pre-operative results and documents have been reviewed as part of the pre-operative evaluation. Informed Consent: The patient's anesthetic plan and its attendant risks and benefits were discussed with the patient/family/POA. Questions were solicited and answers provided to the satisfaction of the patient/family/POA.
[2024-12-25] MEDS: LACTATED RINGERS 1,000 ML 30 ML IV CONT (08:05)
[2024-12-25] MEDS: LIDO 1%/EPINEPHRINE 1:100,000 50 ML VIAL 10 ML INFILTRATE (09:27)
[2024-12-25] MEDS: ceFAZolin 2 GM/D5W 50 ML 2 GM/50 ML BAG IVPB (09:27)
[2024-12-25] MEDS: BUPivacaine HCL 0.5% PF 30 ML VIAL INFILTRATE (09:27)
[2024-12-25] MEDS: BACITRACIN OINTMENT 15 GM TUBE 1 APPLIC TOPICAL (10:25)
[2024-12-25] MEDS: LIDOCAINE 1% LOCAL INJ 20 ML VIAL 3 ML INFILTRATE (10:29)
[2024-12-25] MEDS: BETAMETHASONE SOD PHOS/ACETATE 30 MG/5 ML VIAL 12 MG IM (10:30)
[2024-12-25] MEDS: fentaNYL CITRATE INJ (*CRX) 100 MCG/2 ML VIAL 25 MCG IV PUSH ×6 (10:50→11:35)
[2024-12-25] MEDS: ONDANSETRON INJ 4 MG/2 ML VIAL IV PUSH (10:55)
[2024-12-25] MEDS: HYDROmorphone HCL INJ (*CRX) 1 MG/ML SYR 0.5 MG IV PUSH ×2 (11:55→12:02)
[2024-12-25] MEDS: oxyCODONE HCL (*CRX) 5 MG TAB IR PO (12:33)
== END 2024-12-25 13:15 | disposition home or self-care (01) ==
PROVIDERS: Visit Provider Plastic Surgery
PROC: (CPT 25447; principal; 2024-12-25 09:00)
DX: M18.0 Bilateral primary osteoarthritis of first carpometacarpal joints (principal)
CPT/HCPCS: 25447; 20600; 99199; A9270; C1713; J0690; J0702; J1100; J1171; J2003; J2004; J2405; J2704; J3010; J7120

== ENCOUNTER 2024-12-31 15:44 | Outpatient (CLI) | payer OTHER, SELFPAY ==
--- NOTE | ~2024-12-31 | XR_ITS ---
Left Hand Technique: PA, oblique, and lateral views were obtained. Clinical History: Osteoarthritis COMPARISON: 07/16/2024 Findings: Status post trapezium resection with orthopedic button suture anchors at the bases of the f irst and second metacarpals. Joint spaces are preserved. Soft tissue swelling over the dorsum of the hand noted. Impression: Postoperative change at the base of the thumb, as above. Reviewed, dictated and finalized at location M. Impression: Postoperative change at the base of the thumb, as above.
--- OUTSIDE RECORDS SUMMARY | 2024-12-31 16:41 | XMS_ITS | Encounter Summary ---
Author Organization [facility] Address [address] [place] [address] Phone Care Team Providers Care Medical Van Driver Name Role Phone Earlene Garcia MD Primary Care Provider + Reason for Visit * Reason Comments Medication Refill Encounter Details Date Type Department Care Team (Late st Contact Info) Description 02/17/2020 Refill [facility] - [facility]rology - [place] [address] [place] [phone] Hector Munguia MD [address] [place] [phone] Medication Refill Social History Tobacco Use Types Packs/Day Years Used Date Smoking Tobacco: Former Cigarettes 1.5 15 0 02/15/1997 - 02/16/2012 Smokeless Tobacco: Former Alcohol Use Standard Drinks/Week Comments No 0 (1 standard drink = 0.6 oz pur e alcohol) Sex and Gender Information Value Date Recorded Sex Assigned at Not on file Legal Sex Male 1:26 PM 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
--- OUTSIDE RECORDS SUMMARY | 2024-12-31 16:41 | XMS_ITS | Clinical Summary ---
Author Organization [facility] Address [address] [place] [address] Care Team Providers Care Veterinary Virologist Name Role Phone Earlene Garcia MD Primary Care Provider [phone] Source Comments [facility],non-owned Affiliates and Associated Physician Practices is amultiple site organization consisting of ambulatory clinics and hospital sitesin [place], [place], [place] and [place]. This disclosure is being madepursuant to the Care Everywhere program and may not contain all information available regarding this patient. Last updated 18.[facility] Allergies Active Allergy Reactions Criticality Noted Date Comments Flu Virus Vaccine Swelling Low 12/14/2016 Medications * Be aware that medications may not be up to date on this document. Alwaysverify current medications with the patient. meloxicam (MOBIC) 15 MG tablet Take 15 mg by mouth DAILY. 11/12/2016 Active montelukast (SINGULAIR) 10 MG tablet Take 10 mg by mouth DAILY. 11/12/2016 Active lisinopril (PRINIVIL; ZESTRIL) 20 MG tablet Take 20 mg by mouth DAILY. 11/12/2016 Active HYDROcodone-jean carlos taminophen (NORCO) 10-325 MG tablet Take 10 tablets by mouth q6h PRN. 11/24/2016 Active loratadine (CLARITIN) 10 MG tablet Take 10 mg by mouth DAILY. 11/12/2016 Active budesonide-form oterol (SYMBICORT) 80-4.5 MCG/ACT inhaler Inhale 4.5 Inhalers by mouth. 12/14/2016 Active DULoxetine (CYMBALTA) 30 MG capsule Take 30 mg by mouth DAILY. 11/12/2016 Active famotidine (PEPCID) 20 MG tablet Take 20 mg by mouth BID. 12/14/2016 Active gabapentin (NEURONTIN) 300 MG capsule Take 300 mg by mouth TID. 11/12/2016 Active doxepin (SINEQUAN) 10 MG capsule 05/03/2021 Active vitamin D, ergocalciferol, (DRISDOL) 1.25 MG (90360 UT) capsule 08/07/2021 Active escitalopram (LEXAPRO) 20 MG tablet 08/09/2021 Active sucralfate (CARAFATE) 1 GM tablet 08/05/2021 Active sulfamethoxazol e-trimethoprim (BACTRIM DS; SEPTRA DS) 800-160 MG tablet 08/09/2021 Active tamsulosin (FLOMAX) 0.4 MG capsule 08/09/2021 Active triamcinolone acetonide (KENALOG) 0.1 % cream 02/23/2021 Active topiramate (TOPAMAX) 100 MG tablet 01/25/2021 Active Active Problems Problem Noted Date Diagnosed Date Neck pain 08/11/2021 Dysphagia 05/22/2018 Encounters Date Type Department Care Team Description 10/25/2024 1:08 PM RN RENAL - 10/25/2024 11:59 PM RN RENAL Hospital Encounter [address] [phone] Berna Duke MD Discharge Disposition: Home or [...] at Not on file Legal Sex Male 3:15 PM CDT Gender Identity Not on file Sexual Orientation Not on file Last Filed Vital Signs Vital Sign Reading Time Taken Comments Blood Pressure 118/81 08/11/2021 9:50 AM RN RENAL Pulse 107 08/11/2021 9:50 AM RN RENAL Temperature 36.8 C (98.2 F) 08/11/2021 9:50 AM RN RENAL Respiratory Rate 16 05/22/2018 9:16 AM CDT Oxygen Saturation 95% 08/11/2021 9:50 AM RN RENAL Inhaled Oxygen Concentration - - Weight 102.1 kg (225 lb) 08/11/2021 9:50 AM RN RENAL Height 177.8 cm (5' 10 ) 08/11/2021 9:50 AM RN RENAL Body Mass Index 32.28 08/11/2021 9:50 AM RN RENAL Plan of Treatment Health Maintenance Due Date [...] Comments US ELASTOGRAPHY Routine 10/25/2024 2:06 PM RN RENAL Nonalcoholic steatohepatitis (KENNEDY) from Last 3 Months Results * US Elastography (10/25/2024 2:06 PM RN RENAL) Anatomical Region Laterality Modality Abdomen Ultrasound 10/25/2024 1:48 PM RN RENAL Impressions 10/25/2024 4:44 PM RN RENAL Impression: Stiffness Score: Median 6.4 kPa. IQR/Median ratio: 19.4%. (Ratio should be less than 30%). Report dictated by Berny Sheppard MD (vice president). Reference: <5 kPa (1.3 m/sec)- High [...] ([facility]). > Dictated by Berny Sheppard MD (Accounting Instructor) 10/25/2024 1:48 PM IDuglas MD have personally reviewed and interpreted this examination/study. > Interpreting Provider: Duglas Posadas MD on 10/25/2024 4:44 PM Narrative 10/25/2024 4:44 PM RN RENAL PROCEDURE: US ELASTOGRAPHY, DATE/TIME OF EXAM: 10/25/2024 1:08 PM, LOCATION [facility] INDICATION: K75.81: Nonalcoholic steatohepatitis (KENNEDY) ADDITIONAL CLINICAL [...] ELASTOGRAPHY, DATE/TIME OF EXAM: 10/25/2024 1:08 PM,LOCATION [facility] INDICATION: K75.81: Nonalcoholic steatohepatitis (KENNEDY) ADDITIONAL CLINICAL [...] 30%). Report dictated by Berny Sheppard MD (vice president). Reference: <5 kPa (1.3 m/sec)- High [...] (CSP[facility]). > Dictated by Berny Sheppard MD (Accounting Instructor) 10/25/2024 1:48 PM IDuglas MD have personally reviewed and interpreted this examination/study. > Interpreting Provider: Duglas Posadas MD on 10/25/2024 4:44 PM us Berna Duke MD ORDERABLES Final Res ult from Last 3 Months Insurance [facility] [place] [address] Care Teams Veterinary Virologist Relationship Specialty Start Date End Date Earlene Garcia MD [address] [place] [address] [phone] PCP - General 10/17/16
--- OUTSIDE RECORDS SUMMARY | 2024-12-31 16:41 | XMS_ITS | Encounter Summary ---
Author Organization [facility] Address [address] [place] [address] Phone Care Team Providers Care Sanitation Worker Cleaning Equipment Name Role Phone Earlene Garcia MD Primary Care Provider + Reason for Visit * Reason Comments Medication Refill Encounter Details Date Type Department Care Team (Late st Contact Info) Description 02/23/2021 Refill [facility] - [place] [address]1 [place] [phone] Hector Munguia MD [address]2 [place] [address] Medication Refill Social History Tobacco Use Types Packs/Day Years Used Date Smoking Tobacco: Former Cigarettes 1.5 15 0 02/15/1997 - 02/16/2012 Smokeless Tobacco: Former Alcohol Use Standard Drinks/Week Comments No 0 (1 standard drink = 0.6 oz pur e alcohol) Sex and Gender Information Value Date Recorded Sex Assigned at Not on file Legal Sex Male 1:26 PM SLEEVE FIXER Gender Identity Not on file Sexual Orientation [...] on filedocumented in this encounter Care Teams Sanitation Worker Cleaning Equipment Relationship Specialty Start Date End Date Earlene Garcia MD [address] [place] [address] PCP - General Family Medicine 03/14/18 documented as of this encounter
--- OUTSIDE RECORDS SUMMARY | 2024-12-31 16:41 | XMS_ITS | Clinical Summary ---
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
--- OUTSIDE RECORDS SUMMARY | 2024-12-31 16:41 | XMS_ITS | CONTINUITY OF CARE DOCUMENT ---
Author Name luis smith Address Unknown Organization [facility] Address [address] [facility] [address] [place] [address] Phone [phone] Care Team Providers Care Transferrer Name Role Phone Cleve Jimenez MD Unavailable [phone] Cleve Jimenez MD Unavailable [phone] INSURANCE PROVIDERS Payer name Policy type / Coverage type Jensen red republican ID [id number] Medicaid [id number]
--- OUTSIDE RECORDS SUMMARY | 2024-12-31 16:41 | XMS_ITS | Clinical Summary ---
Author Organization [facility] Address [facility] [place] [address] Care Team Providers Care Data Recovery Planner Name Role Phone Terry Esteves NP Primary Care Provider [phone] Allergies Active Allergy Reactions Criticality Noted Date [...] Department Care Team Description 12/19/2024 Orders Only [facility] at the [facility] Advanced Medicine [address] [place] [address] [address] [place] [address] Emily Gomez MD 12/11/2024 2:09 PM CDT - 12/11/2024 11:59 PM CDT Hospital Encounter [facility] Pain Center at the [facility] [address] [facility] [address] [place] [address] Emily Gomez MD Lumbar radiculopathy; Spinal stenosis of lumbar region with neurogenic claudication Discharge Disposition: Discharge to home or self care 12/06/2024 Telephone [facility] at [facility] Advanced [place] [address] [facility] [address] [place] [address] Emily Gomez MD PMC Preprocedure 11/05/2024 11:52 AM BIOFUELS PRODUCTION ASSOCIATE - 11/05/2024 11:59 PM [facility] at [facility] [place] [facility] [address] [place] [address] Advanced Medicine [address] [place] [address] Emily Gomez MD Lumbar radiculopathy (Primary Dx); Cervical radicular pain; Spinal stenosis of lumbar region with neurogenic claudication Discharge Disposition: Discharge to home or self care 11/01/2024 Telephone 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 Medical Office Bldg 1 OP Physical Therapy [address] [place] [address] from Last 3 Months Surgical History Surgery [...] on file Legal Sex Male 10:23 AM BIOFUELS PRODUCTION ASSOCIATE Gender Identity Male 06/13/2024 11:33 AM CDT [...] Read Routine (OP Routine) 11/05/2024 1:31 PM BIOFUELS PRODUCTION ASSOCIATE Cervical radicular pain from Last 3 Months Results * Imaging Lumbar/Sacral Selective Nerve Root INJ (TFE) Bilateral ([id number]) (12/11/2024 4:33 PM CDT) Narrative [facility] - 12/11/2024 4:33 PM CDT The images from this study are not interpreted by Radiology. Please refer to the physician's procedure / OR operative note. Lorene Martin MD IMG PAIN MGMT PROCE DURES Final Result Performing Organization Address [facility] Phone Number [facility] * Imaging Cervical/Thoracic Epidural Steroid INJ ([id number]) (11/05/2024 1:31 PM BIOFUELS PRODUCTION ASSOCIATE) Narrative [facility] - 11/05/2024 1:31 PM BIOFUELS PRODUCTION ASSOCIATE The images from this study are not interpreted by Radiology. Please refer to the physician's procedure / OR operative note. Emily Gomez MD IMG PAIN MGMT PROCEDURES Fi nal Result Performing Organization Address [facility] Phone Number [facility] from Last 3 Months Insurance [facility] Care Teams Data Recovery Planner Relationship Specialty Start Date End Date Terry Esteves NP [address] [place] [address] [place] [address] PCP - General Family Medicine 03/19/24
--- OUTSIDE RECORDS SUMMARY | 2024-12-31 16:41 | XMS_ITS | Clinical Summary ---
Author Organization [facility] Address [address] [place] [address] Care Team Providers Care Police Reserves Commander Name Role Phone None, Provider MD Primary [...] 5 Years) and At-Risk Patients (6 to 49 Years) Aged Out No longer eligible b ased on patient's age to complete this topic RSV Immunizations Under 20 Months Aged Out No longer eligible based on patient's age to complete this topic Insurance [employer] Care Teams Police Reserves Commander Relationship Specialty Start Date End Date None, Provider, PCP - General UNKNOWN PHYSICIAN SPECIALTY 02/06/24
--- OUTSIDE RECORDS SUMMARY | 2024-12-31 16:41 | XMS_ITS | Referral Summary ---
Author Organization [facility] Address [address] [place] [address] Care Team Providers Care Chain Builder Name Role Phone Terry Esteves NP Primary Care Provider [phone] Encounters Date Type Department Care Team Description 12/19/2024 Orders Only [facility] Advanced Medicine [address] [place] [address] Advanced Medicine [address] [place] [address] Emily Gomez MD 12/11/2024 2:09 PM CDT - 12/11/2024 11:59 PM CDT Hospital Encounter [facility] at [facility] Advanced Medicine [address] [place] [address] Advanced Medicine [address] [place] [address] Emily Gomez MD Lumbar radiculopathy; Spinal stenosis of lumbar region with neurogenic claudication Discharge Disposition: Discharge to home or self care 12/06/2024 Telephone [facility] at the [place] [facility] Medicine [address] [place] [address] Advanced Medicine [address] [place] [address] Emily Gomez MD PMC Preprocedure 11/05/2024 11:[address] IN THEATER ATTENDANT - 11/05/2024 11:[address] IN THEATER ATTENDANT Hospital Encounter [facility] Advanced Medicine [address] [place] [address] Advanced Medicine [address] [place] [address] Emliy Gomez MD Lumbar radiculopathy (Primary Dx); Cervical radicular pain; Spinal stenosis of lumbar region with neurogenic claudication Discharge Disposition: Discharge to home or self care 11/01/2024 Telephone [facility] Advanced [facility] [address] [place] [address] Emily Gomez MD [facility] Preprocedure 10/23/2024 10:[address] IN THEATER ATTENDANT Therapy [facility] Medical Office Bldg 1 OP Physical Therapy [address] [place] [address] [place] [address] Spike Hill, MISSILE INSPECTOR PREFLIGHT 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); Lumbar radiculopathy 10/17/2024 12:[address] IN THEATER ATTENDANT Therapy [facility] Medical Office Bldg 1 OP Physical Therapy [address] [place] [address] [place] [address] Terese Colmenares, MISSILE INSPECTOR PREFLIGHT 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) 10/16/2024 Telephone [facility] [place] [facility] [address] [place] [address] Advanced [facility] [address] [place] [address] Emily Gomez MD [facility] pre procedure instructions 10/14/2024 10:[address] IN THEATER ATTENDANT Therapy [facility] Medical Office Bldg 1 OP Physical Therapy [address] [place] [address] [place] [address] Spike Hill, MISSILE INSPECTOR PREFLIGHT 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) 10/07/2024 10:[address] IN THEATER ATTENDANT Therapy [facility] Medical Office Bldg 1 OP Physical Therapy [address] [place] [address] Kristina Crane, MISSILE INSPECTOR PREFLIGHT 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) 10/04/2024 Plan of Care Documentation [facility] Medical Office Bldg 1 OP Physical Therapy [address] [place] [address] 10/04/2024 7:[address] IN THEATER ATTENDANT Therapy [facility] Office Bldg 1 OP Physical Therapy [address] [place] [address] Lindsey Engel, PT 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 Please refer to the physician's procedure / OR operative note. us Lorene Martin MD IMG PAIN MGMT PROCE JORI Final Result [facility] * Imaging Cervical/Thoracic Epidural Steroid INJ ([id number]) (11/05/2024 1:[address] IN THEATER ATTENDANT) Narrative [facility] - 11/05/2024 1:[address] IN THEATER ATTENDANT The images from this study are not interpreted by Radiology. Please refer to the physician's procedure / OR operative note. us Emily Gomez MD IMG PAIN MGMT PROCEDURES Fi nal Result [facility] from Last 3 Months Insurance [id number] [facility] Care Teams Chain Builder Relationship Specialty Start Date End Date Terry Esteves NP [address] [place] [address] [place] [address] PCP - General Family Medicine 03/19/24
== END 2024-12-31 15:45 | disposition home or self-care (01) ==
PROVIDERS: Visit Provider Physician Assistant Surgical
DX: M18.0 Bilateral primary osteoarthritis of first carpometacarpal joints (principal); Z98.890 Other specified postprocedural states
CPT/HCPCS: 73130

== ENCOUNTER 2025-02-04 11:15 | Outpatient (CLI) | payer OTHER, SELFPAY ==
--- NOTE | ~2025-02-04 | XR_ITS ---
Left Hand Technique: PA, oblique, and lateral views were obtained. Clinical History: Arthritis COMPARISON: 12/31/2024 Findings: No acute fracture or dislocation is seen. Stable trapezium resection with orthopedic hardwa re at the base of the first and second metacarpals.. Soft tissues are unremarkable. Impression: Stable postoperative change at the base of the thumb region. No acute abnormality seen. Reviewed, dictated and finalized at location . Impression: Stable postoperative change at the base of the thumb region. No acute abnormality seen.
--- OUTSIDE RECORDS SUMMARY | 2025-02-04 11:20 | XMS_ITS | Clinical Summary ---
Author Organization [facility] Address [address] [place] [address] Care Team Providers Care Brick Chimney Supervisor Name Role Phone Earlene Garcia MD Primary Care Provider [phone] Source Comments [facility],non-owned Affiliates and Associated Physician Practices is amultiple site organization consisting of ambulatory clinics and hospital sitesin [place], [place] and [place]. This disclosure is being madepursuant to the Care Everywhere program and may not contain all information available regarding this patient. Last updated 18.[facility] Allergies Active Allergy Reactions Criticality Noted Date [...] Active vitamin D, ergocalciferol, (DRISDOL) 1.25 MG (09832 UT) capsule 08/07/2021 Active escitalopram (LEXAPRO) 20 MG tablet 08/09/2021 Active sucralfate (CARAFATE) 1 GM tablet 08/05/2021 Active sulfamethoxazol e-trimethoprim (BACTRIM DS; SEPTRA DS) 800-160 MG tablet 08/09/2021 Active tamsulosin (FLOMAX) 0.4 MG capsule 08/09/2021 Active triamcinolone acetonide (KENALOG) 0.1 % cream 02/23/2021 Active topiramate (TOPAMAX) 100 MG tablet 01/25/2021 Active Active Problems Problem Noted Date Diagnosed Date Neck pain 08/11/2021 Dysphagia 05/22/2018 Social History Tobacco Use Types Packs/Day Years [...] Comments Blood Pressure 118/81 08/11/2021 9:50 AM PREPARATION PLANT REPAIRER Pulse 107 08/11/2021 9:50 AM PREPARATION PLANT REPAIRER Temperature 36.8 C (98.2 F) 08/11/2021 9:50 AM PREPARATION PLANT REPAIRER Respiratory Rate 16 05/22/2018 9:16 AM CDT Oxygen Saturation 95% 08/11/2021 9:50 AM PREPARATION PLANT REPAIRER Inhaled Oxygen Concentration - - Weight 102.1 kg (225 lb) 08/11/2021 9:50 AM PREPARATION PLANT REPAIRER Height 177.8 cm (5' 10 ) 08/11/2021 9:50 AM PREPARATION PLANT REPAIRER Body Mass Index 32.28 08/11/2021 9:50 AM PREPARATION PLANT REPAIRER Plan of Treatment Health Maintenance Due Date [...] patient's age to complete this topic Insurance [facility] Care Teams Brick Chimney Supervisor Relationship Specialty Start Date End Date Earlene Garcia MD [address] [place] [address] [place] [address] PCP - General 10/17/16
--- OUTSIDE RECORDS SUMMARY | 2025-02-04 11:21 | XMS_ITS | Clinical Summary ---
Author Organization [facility] Address [address] [place] [address] Care Team Providers Care Construction Representative Name Role Phone None, Provider MD Primary [...] of 3 - 19+ 3-dose series) 1992 Pneumococcal Vaccine: 50+ Ye ars (1 of 1 - PCV) 2023 Zoster Vaccines (1 of 2) 2023 COVID-19 Vaccine (1 - 2023-2 5 season) 2024 Meningococcal B Vaccine Aged Out No l onger eligible based on patient's age to complete this topic Meningococcal Vaccine Aged Out No wilfredo charly eligible based on patient's age to complete this topic RSV Immunizations Under 20 Months Aged Out No longer eligible based on patient's age to complete this topic Insurance Care Teams Construction Representative Relationship Specialty Start Date End Date None, Provider, MD PCP - General UNKNOWN PHYSICIAN SPECIALTY 02/06/24
--- OUTSIDE RECORDS SUMMARY | 2025-02-04 11:21 | XMS_ITS | Encounter Summary ---
Author Organization [facility] Address [address] [place] [address] Phone Care Team Providers Care Supply Aide Name Role Phone Earlene Garcia MD Primary Care Provider + Reason for Visit * Reason Comments Medication Refill Encounter Details Date Type Department Care Team (Late st Contact Info) Description 02/23/2021 Refill [facility] - Neurology - [place] #1 [place] [phone] Hector Munguia MD [address] [place] [address] Medication Refill Social History Tobacco Use Types Packs/Day Years Used Date Smoking Tobacco: Former Cigarettes 1.5 15 0 02/15/1997 - 02/16/2012 Smokeless Tobacco: Former Alcohol Use Standard Drinks/Week Comments No 0 (1 standard drink = 0.6 oz pur e alcohol) Sex and Gender Information Value Date Recorded Sex Assigned at Not on file Legal Sex Male 1:26 PM [employer] Gender Identity Not on file Sexual Orientation [...] on filedocumented in this encounter Care Teams Supply Aide Relationship Specialty Start Date End Date Earlene Garcia MD [address] [place] [id number] PCP - General Family Medicine 03/14/18 documented as of this encounter
--- OUTSIDE RECORDS SUMMARY | 2025-02-04 11:21 | XMS_ITS | Data Portability ---
Author Organization [place] [facility] [employer], Main Office Address [address] [place] [address] Care Team Providers Care Internal Audit Manager Name Role Phone AURELIANO EUBANKS ZACHARY Primary Care Provider [phone] AURELIANO EUBANKS ZACHARY Referring Provider Assessment Encounter Date Assessment Date Assessment LastModified by Organization Details LastModified Time 06/11/2024 06/11/2024 This note is dictated and transcribed by [employer]. A[employer] variances may occur. Despite proofreading, typographical errors may occur. Occasional wrong-word or '[id number]' substitutions may have occurred due to the inherent limitations of voice recording. Read the chart carefully and recognize, using context, where substitutions have occurred. [email or web address] Not available 06/11/2024 16:28:36 06/27/2024 06/27/2024 This note is dictated and transcribed by [employer]. A[employer] variances may occur. Despite proofreading, typographical errors may occur. Occasional wrong-word or '[id number]' substitutions may have occurred due to the inherent limitations of voice recording. Read the chart carefully and recognize, using context, where substitutions have occurred. Not available 06/27/2024 16:57:48 07/18/2024 07/18/2024 upper abdominal discomfort, worse when laying down. Constant. Patient does have longstanding spine issues. Imaging does show sludge and possible gallstones with no other signs of inflammation of the gallbladder. Do not feel symptoms are related to gallbladder pathology. Recommend following up with spine doctor as this may be related to his back. Patient was reassured. No surgical intervention recommended [email or web address] Not available 07/18/2024 11:35:16 Plan of Treatment Reminders Order Date Submit Date Provider Last Modified By Organization Details Last Modified Time Details Appointments None recorded. Lab alpha-1-ant itrypsin (aat), QN, serum [address] (Lab), [address] [place], [address], 5 11:22:29 mitochondri al M2 igg Ab, serum [address] (Lab), [address] [place], [address], 5 11:22:38 hepatitis C virus Ab, serum [address] (Lab), [address] [place], [address], 5 11:23:10 ceruloplasm in, serum [address] (Lab), [address] [place], [address], 5 11:22:48 actin smooth muscle Ab, serum [address] (Lab), [address] [place], [address], 5 11:23:01 vitamin D, 25-hydroxy, total, serum 2023 024 MARIA LUISA [facility] (Lab), [address] [place], [address], 4 21:03:52 TSH, serum or plasma 2023 024 [email or web address] [facility] (Lab), [address] [place], [address], 4 08:14:47 CBC 2023 [facility] (Lab), [address] [place], [address], 21:03:52 Referral None recorded. Procedures None recorded. Surgeries None recorded. Imaging US, elastogram - Please contact patient to schedule 2024 [facility] Medicine Gastroenterol ogy/Invervent ional Readiology, [address] [facility], [place], [address], 16:10:57 US, abdomen, complete - Please call patient to schedule. 2023 [facility] ([facility]), [address] [place], [address], 10:44:38 Medication Orders doxycycline hyclate 100 mg capsule 2023 [facility]/Pharmacy #[id number], [address] [place], [address], 17:04:49 cyanocobala min (vit B-12) 1,000 mcg tablet 2023 [facility]/Pharmacy #[id number], [address] [place], [address], 16:26:34 Patient TargetsNo targets recorded. Patient Instructions Encounter Date Encounter Id Patient Instructions Last Modified By Organization Details Last Modified Time 06/11/2024 [id number] [email or web address]: care instructions Not available 06/11/2024 16:29:31 10/16/2024 [id number] EXERCISE 300 MIN PER WEEK. [email or web address] Not available 10/16/2024 12:04:48 PT WITH FATTY , MOST LIKELY KENNEDY . NEED TO R/O OTHER LIVER DZ. F/U PRN . [email or web address] Not available 10/16/2024 12:05:23 Reason for Referral None Reported. Results Created Date Observation Date Name Description Value Unit Range Abnormal Flag Note LastModifiedBy Organization Detail LastModifiedTime 06/26/20 24 06/26/2024 US, abdom en, compl ete No observ ation record ed. [facility] [address] [place], [address], 07/02/2024 15:05:49 07/16/20 24 07/16/2024 XR, hand, 3 or more view No observ ation record ed. [email or web address] [facility] [address], [place], [address], 07/17/2024 08:58:56 09/25/19 25 09/16/2024 imagi ng/di agnos tic resul t No observ ation record ed. [email or web address] Not Available 09/25 16:18:46 11/05/19 25 10/25/2024 US, elast ogram No observ ation record ed. [email or web address] [facility] Gastroenterol ogy/In[facility] ional Readiology [address] [facility], [place], [address], 11/06/2024 10:16:26 Result Notes None recorded. Problems Name Problem SNOMED Code Status Onset Date Resolution Date Notes Provider Name and Address Organization Details Recorded Time Mixed anxiety and depressive disorder 648674633 Active 2022 Earlene Garcia MD [address] [facility], [facility] [address], [place], [address] , [employer] 3 08:19:41 Degenerati on of lumbar interverte bral disc 46858341 Active 2022 Earlene Garcia MD [address] [facility], [address], [place], [address] , [employer] 3 08:20:11 Abdominal pain 03146134 Active 2022 Earlene Garcia MD [address] [facility], [address], [place], [address] , [employer] 3 08:23:47 Benign hypertensi on 22652240 Active Not Available [facility] 3 01:17:56 Chronic back pain 502659733 Active Not Available [facility] 3 01:17:56 Abnormal weight gain 084509109 Active Not Available [facility] 3 01:17:56 Backache 134959241 Active Not Available [facility] 3 01:17:56 Indigestio n 315142719 Active Not Available [facility] 3 01:17:56 Asthma 441539650 Active Not Available [facility] 3 01:17:56 Prolapsed lumbar interverte bral disc 825599729 Active Not Available [facility] 3 01:17:56 Oral lichen planus 284752343 Active 2020 Not Available [facility] 3 01:17:56 Spondyloly sis 079510028 Active Not Available [facility] 3 01:17:56 Ankle pain 944488769 Active Not Available [facility] 3 01:17:56 Dry skin dermatitis 566262048 Active 2021 Not Available [facility] 3 01:17:56 Renal pain 423314343 Active Not Available [facility] 3 01:17:56 Low back pain 648710593 Active Not Available [facility] 3 01:17:56 Lesion of stomach 107225547 Active Not Available [facility] 3 01:17:56 Difficulty sleeping 584888900 Active Not Available [facility] 3 01:17:57 Hypertrigl yceridemia 653605038 Active Not Available [facility] 3 01:17:57 Knee pain Active Not Available [facility] 3 01:17:57 Obesity 991341734 Active Not Available [facility] 3 01:17:57 Allergic reaction 449906631 Active Not Available [facility] 3 01:17:57 Eczema 52337264 Active Not Available [facility] 3 01:17:57 Foot pain 92759752 Active Not Available [facility] 3 01:17:57 Hand pain 15438126 Active Not Available [facility] 3 01:17:57 Talipes planus 67786891 Active Not Available [facility] 3 01:17:57 Tinea pedis 6928061 Active 2021 Not Available [facility] 3 01:17:57 Degenerati on of cervical interverte bral disc 41660570 Active 2022 Earelne Garcia MD [address] [employer], [place], [address] , [employer] 3 09:46:37 Hernia of anterior abdominal wall 384518011 Active 2022 Earlene Garcia MD [address] [employer], [place], [address] , [employer] 3 09:48:17 Umbilical hernia 544030079 Active 2022 Earlene Garcia MD [address] [employer], [place], [address] , [employer] 3 09:33:40 Fatigue 77230851 Active 2022 Earlene Garcia MD [address] [employer], [place], [address] , [employer] [facility] 3 09:48:09 Male hypogonadi sm 94392839 Active 2022 Earlene Garcia MD [address], [place], [address] , [employer] [facility] 3 09:19:50 Gastroesop hageal reflux disease without esophagiti s 213127939 Active 2022 Earlene Garcia MD [address] [employer], [place], [address] , [employer] [facility] 3 09:26:02 Pain in left thumb 0168538818359 100 Active 2022 MD Rebeca Srinivasan [address], [place], [address] , [employer] [facility] 3 09:29:50 Pain of left hand 1230805679803 03 Active 2022 LAUREN García null, [facility] 3 09:03:31 Rib pain 553004387 Active 2022 Earlene Garcia MD [address], [address], [place], [address] , [facility] [employer] [facility] 3 12:36:23 Restless legs 08014913 Active 2022 Earlene Garcia MD [address], [address], [place], [address] , [facility] [employer] [facility] 3 12:40:29 Arthritis of first carpometac arpal joint of left hand 9563585875675 103 Active 2022 Thelma Huston CMA null, [facility] [employer] [facility] 3 09:26:24 Tibialis anterior tendinitis 287100163 Active 2023 Colby Galaviz DPM [address], [address], [place], [address] , [facility] [employer] [facility] 4 13:43:40 Congenital pes planus 32667760 Active 2023 Colby Galaviz DPM [address], [address], [place], [address] , [facility] [employer] [facility] 4 13:43:56 Bunion 588674705 Active 2023 Colby Galaviz DPM [address], [address], [place], [address] , [facility] [employer] [facility] 4 13:44:09 Curly toe 731163350 Active 2023 Colby Galaviz DPM [address], [address], [place], [address] , [facility] [employer] [facility] 4 13:44:19 Ingrowing toenail 310803476 Active 2023 Colby Galaviz DPM [address], [address], [place], [address] , [employer] 4 13:45:41 Skin lesion 89494421 Active 2023 RASHID ColonC [address], [address], [place], [address] , [employer] 4 09:09:40 Cobalamin deficiency 649090864 Active 2023 RASHID ColonC [address], [address], [place], [address] , [employer] 4 16:21:36 Vitamin D deficiency 44890139 Active 2023 RASHID ColonC [address], [address], [place], [address] , [employer] 4 10:55:08 Cellulitis of toe 99910104 Active 2023 Colby Galaviz DPM [address], [address], [place], [address] , [employer] 4 17:04:39 Gallstone 617082151 Active 2023 RASHID ColonC [address], [address], [place], [address] , [employer] 4 11:42:44 Metabolic dysfunctio n-associat ed steatohepa titis 191936095 Active 2024 Berna Duke MD [address], [address], [place], [address] , [employer] 5 11:50:37 Notes:Obesity with mild OSAH S, AHI = 14, 01/25/21, on autoCPAP 7-10 cmH2O Problem Notes None recorded. Procedures Surgical History Date Name Laterality Status Provider Name and Address Organization Details Recorded Time 4 Partial Nail [employer] Matrixectomy- Right completed Colby Galaviz DPM [address], [address], [place], [address], [place] [employer] [facility] [employer] 06/11/2024 16:28:12 4 Partial Nail [employer] Matrixectomy- Left completed Colby Galaviz DPM [address], [address], [place], [address], [place] [employer] [facility] [employer] 06/11/2024 16:28:17 3 Hernia Surgery completed Linda Knight MA [employer] [facility] [employer] [facility] 06/14/2023 14:12:39 Imaging Results Imaging Date Name Status LastModified by Organiz ation Details LastModified Time 06/26/2024 US, abdomen, complete completed [facility] [address], [place], [address], 07/02/2024 15:05:49 07/16/2024 XR, hand, 3 or more view completed [place] [address] [facility] [address], [place], [address], 07/17/2024 08:58:56 09/16/2024 imaging/diagnos tic result completed [email or web address] Information not available 09/25/2024 16:18:46 10/25/2024 US, elastogram completed [address] Medicine Gastroenterology /Inverventional Readiology [address] [facility], [place], [address], 11/06/2024 10:16:26 Procedure Notes None recorded. Medical Equipment None Reported. Allergies Allergen ID Allergen Name Allergen Category Reaction Reaction Severity Criticality Documentation Date Start Date Code Code System Note Provider Name and Address Organization Details Recorded Time 2316 POLLEN EXTRACTS environme nt,medica tion Not available Not available Not available 11/16/2022 92837 6 RxNorm Not Available [facility] 3 01:24:58 2317 mold extract environme nt Not available Not available Not available 11/16/2022 10354 8 RxNorm Not Available [facility] 3 01:24:58 2318 Vaccine product containin g only Influenza virus antigen (medicina l product) medicatio n angioedem a moderate Not available 11/16/20222014 92654 69237 105 SNOMED Not Available [facility] 3 01:24:58 2319 adhesive environme nt,medica tion Not available Not available Not available 11/16/2022 97392 UNK Not Available [facility] 3 01:24:59 Medications Name Sig Start Date Stop Date Status Note LastModified by Organization Details LastModified Time terbinafine HCl 1 % topical cream APPLY TO THE AFFECTED AND SURROUNDI NG AREAS OF SKIN BY TOPICAL ROUTE ONCE DAILY active Not Available Not Available No t Available Xylocaine-M PF 20 mg/mL (2 %) injection solution in office procedure , administe red by provider 12/03 completed Not Available Not Available Not Available nystatin 100,000 unit/mL oral suspension TAKE 10 ML BY MOUTH 4 TIMES A DAY active Not Available Not Available No t Available gabapentin 600 mg tablet TAKE 1 TABLET BY MOUTH THREE TIMES A DAY active Not Available Not Available No t Available doxycycline hyclate 100 mg capsule TAKE 1 CAPSULE BY MOUTH TWICE A DAY active Not Available Not Available No t Available Carafate 100 mg/mL oral suspension 3 X A DAY active Not Available Not Available Not Available trazodone 50 mg tablet 1-2 po qhs prn active Not Available Not Available No t Available ibuprofen 800 mg tablet TAKE 1 TABLET BY MOUTH EVERY 8 HOURS NEEDED WITH FOOD 03/01 completed Not Available Not Available Not Available hydrocodone 5 mg-acetamin ophen 325 mg tablet Take 1 tablet(s) EVERY 6 HOURS as needed active Not Available Not Available No t Available ondansetron HCl 8 mg tablet Take 1 tablet every 8 hours by oral route. active Not Available Not Available No t Available meloxicam 15 mg tablet TAKE 1 TABLET BY MOUTH EVERY DAY NEEDED 03/04 completed Not Available Not Available Not Available sucralfate 1 gram tablet TAKE 1 TABLET BY MOUTH 4 TIMES A DAY active Not Available Not Available No t Available lisinopril 20 mg tablet TAKE 1 TABLET BY MOUTH EVERY DAY active Not Available Not Available No t Available prednisone 20 mg tablet 3 po qday x 3 days then 2 po qday x 3 days then 1 po qday x 3 days then 1/2 tab po qday x 3 days then stop active Not Available Not Available No t Available gabapentin 400 mg capsule TAKE 1 CAPSULE BY MOUTH THREE TIMES A DAY active Not Available Not Available No t Available clobetasol 0.05 % topical cream APPLY A THIN LAYER TO THE AFFECTED AREA(S) BY TOPICAL ROUTE 2 TIMES PER DAY for 2 weeks. active Not Available Not Available No t Available venlafaxine ER 150 mg capsule,ext ended release 24 hr TAKE 1 CAPSULE BY MOUTH EVERY DAY 03/04 completed Not Available Not Available Not Available topiramate 25 mg tablet TAKE 1 TABLET BY MOUTH TWICE A DAY 04/11 completed Not Available Not Available Not Available amlodipine 2.5 mg tablet 06/23 completed Not Available Not Available Not Available hydroxyzine HCl 50 mg tablet TAKE 1 TABLET BY MOUTH EVERY DAY AT BEDTIME NEEDED 11/19 completed Not Available Not Available Not Available acyclovir 400 mg tablet TAKE 1 TABLET BY MOUTH EVERY 8 HOURS FOR 7 DAYS active Not Available Not Available No t Available doxepin 10 mg capsule TAKE 1 CAPSULE BY MOUTH AT BEDTIME NEEDED FOR INSOMNIA 03/01 completed Not Available Not Available Not Available ciprofloxac in 500 mg tablet 06/23 completed Not Available Not Available Not Available sulfamethox azole 800 mg-trimetho prim 160 mg tablet TAKE 1 TABLET BY MOUTH EVERY 12 HOURS FOR 10 DAYS 06/07 completed Not Available Not Available Not Available hydrocodone 10 mg-acetamin ophen 325 mg tablet TAKE 1 TABLET BY MOUTH EVERY 6 TO 8 HOURS NEEDED active Not Available Not Available No t Available omeprazole 40 mg capsule,del ayed release TAKE 1 CAPSULE BY MOUTH EVERY DAY 11/19 completed Not Available Not Available Not Available tramadol 50 mg tablet 12/16 completed Not Available Not Available Not Available triamcinolo ne acetonide 0.1 % topical cream APPLY TO THE BOTTOM OF BOTH FEET BEFORE BED active Not Available Not Available No t Available ketorolac 30 mg/mL (1 mL) injection solution Inject 1 mL every 6 hours by intramusc ular route. 10/26 completed 11853 2E Not Available Not Available Not Available oxycodone-a cetaminophe n 5 mg-325 mg tablet 06/15 completed Not Available Not Available Not Available amoxicillin 875 mg tablet Take 1 tablet every 12 hours by oral route for 7 days. active Not Available Not Available No t Available famotidine 20 mg tablet Take 1 tablet twice a day by oral route. 04/13 completed Not Available Not Available Not Available oxycodone-a cetaminophe n 10 mg-325 mg tablet TAKE 1 TABLET BY MOUTH 2 TIMES A DAY NEEDED ONLY *MUST LAST 30 DAYS* active Not Available Not Available No t Available tamsulosin 0.4 mg capsule Take 1 capsule every day by oral route for 10 days. 03/01 completed Not Available Not Available Not Available Kenalog 10 mg/mL suspension for injection in office procedure , administe red by provider 2022 active [facility]: [phone] Not Available Not Available Not Available baclofen 10 mg tablet active Not Available Not Available No t Available triamcinolo ne acetonide 40 mg/mL suspension for injection 1 ml IM x 1 2023 active Not Available Not Available Not Avai lable hydrocodone 7.5 mg-acetamin ophen 325 mg tablet Take 1 tablet every 6 hours by oral route. 01/06 completed Not Available Not Available Not Available cephalexin 500 mg capsule TAKE 1 CAPSULE BY MOUTH EVERY 8 HOURS 06/07 completed Not Available Not Available Not Available pantoprazol e 40 mg tablet,soham yed release TAKE 1 TABLET BY MOUTH EVERY DAY active Not Available Not Available No t Available oseltamivir 75 mg capsule Take 1 capsule twice a day by oral route for 5 days. 10/26 completed Not Available Not Available Not Available triamcinolo ne acetonide 0.1 % topical ointment APPLY THIN COAT TO AFFECTED AREA TWICE A DAY active Not Available Not Available No t Available diphenhydra mine 25 mg tablet Take 2 tablets every 4 hours by oral route as needed. 11/19 completed Not Available Not Available Not Available BD Luer-Bel Syringe 3 mL 25 gauge x 1 USE DIRECTED TO INJECT TESTOSTER ONE active Not Available Not Available No t Available gabapentin 300 mg capsule TAKE 1 CAPSULE BY MOUTH THREE TIMES A DAY 03/14 completed Not Available Not Available Not Available Banophen 25 mg capsule TAKE 2 CAPSULES BY MOUTH EVERY 4 HOURS NEEDED 11/19 completed Not Available Not Available Not Available Xylocaine with Epinephrine 1 %-1:100,000 injection solution 1 ml injected at base of lesion 04/13 completed Not Available Not Available Not Available diclofenac sodium 75 mg tablet,soham yed release active Not Available Not Available Not Available montelukast 10 mg tablet TAKE 1 TABLET BY MOUTH EVERY DAY active Not Available Not Available No t Available acetaminoph en 300 mg-codeine 60 mg tablet TAKE 1 TABLET BY MOUTH EVERY 6 HOURS NEEDED FOR PAIN FOR 7 DAYS active Not Available Not Available No t Available lisinopril 5 mg tablet Take 2 tablets every day by oral route. 03/30 completed Not Available Not Available Not Available zolpidem 5 mg tablet 1 po qhs prn insomnia active Not Available Not Available No t Available ergocalcife rol (vitamin D2) 1,250 mcg (50,000 unit) capsule TAKE 1 CAPSULE BY MOUTH ONE TIME PER WEEK 03/04 completed Not Available Not Available Not Available clobetasol 0.05 % topical ointment APPLY A THIN LAYER TO THE AFFECTED AREA(S) BY TOPICAL ROUTE 2 TIMES PER DAY UP TO 14 DAYS AT A TIME active Not Available Not Available No t Available Viagra 100 mg tablet Take 1 tab 1-2 hours prior to sexual activity 11/19 completed Not Available Not Available Not Available testosteron e cypionate 200 mg/mL intramuscul ar oil INJECT 0.5 ML INTRAMUSC ULARLY EVERY 2 WEEKS active Not Available Not Available No t Available ibuprofen 600 mg tablet active Not Available Not Available Not Available oxycodone-a cetaminophe n 7.5 mg-325 mg tablet Take 1 tablet every 12 hours by oral route as needed. active Not Available Not Available No t Available zolpidem 10 mg tablet TAKE 1 TABLET BY MOUTH AT BEDTIME 03/01 completed Not Available Not Available Not Available methylpredn isolone 4 mg tablets in a dose pack TAKE 6 TABLETS ON DAY 1 DIRECTED ON PACKAGE AND DECREASE BY 1 TAB EACH DAY FOR A TOTAL OF 6 DAYS 02/19 completed Not Available Not Available Not Available BD Luer-Bel Syringe 3 mL 21 gauge x 1 1/2 USE DIRECTED TO DRAW UP TESTOSTER ONE active Not Available Not Available No t Available ketoconazol e 2 % topical cream 09/06 completed Not Available Not Available Not Available topiramate 100 mg tablet TAKE 1 TABLET BY MOUTH TWICE A DAY 03/01 completed Not Available Not Available Not Available fluticasone propionate 50 mcg/actuati on nasal spray,suspe nsion USE 2 SPRAYS IN EACH NOSTRIL ONCE DAILY 03/04 completed Not Available Not Available Not Available loratadine 10 mg tablet TAKE 1 TABLET BY MOUTH EVERY DAY active Not Available Not Available No t Available amoxicillin 875 mg-potassiu m clavulanate 125 mg tablet 07/26 completed Not Available Not Available Not Available Vitamin B-12 1,000 mcg tablet TAKE 1 TABLET BY MOUTH EVERY WEEK active Not Available Not Available No t Available Ventolin HFA 90 mcg/actuati on aerosol inhaler Inhale 2 puffs every 4-6 hours by inhalatio n route as directed for 30 days. active Not Available Not Available No t Available escitalopra m 20 mg tablet TAKE 1 TABLET BY MOUTH EVERY DAY 11/16 completed Not Available Not Available Not Available divalproex ER 250 mg tablet,exte nded release 24 hr TAKE 1 TAB BY MOUTH DAILY X 2 WEEKS, THEN INCREASE TO 1 TAB BY MOUTH TWICE DAILY THEREAFTE R. 11/19 completed Not Available Not Available Not Available bupropion HCl XL 150 mg 24 hr tablet, extended release Take 1 tablet(s) every day by oral route. 10/08 completed Not Available Not Available Not Available topiramate 50 mg tablet TAKE 1 TABLET BY MOUTH TWICE A DAY 11/19 completed Not Available Not Available Not Available duloxetine 30 mg capsule,del ayed release TAKE ONE CAPSULE BY MOUTH EVERY DAY 11/19 completed Not Available Not Available Not Available Symbicort 160 mcg-4.5 mcg/actuati on HFA aerosol inhaler INHALE 2 PUFFS BY MOUTH TWICE A DAY 01/04 completed Not Available Not Available Not Available Dulera 100 mcg-5 mcg/actuati on HFA aerosol inhaler TAKE 2 PUFFS BY MOUTH TWICE A DAY active Not Available Not Available No t Available Vitamin D3 50 mcg (2,000 unit) capsule Take 1 capsule every day by oral route for 90 days. 2023 active Not Available Not Available Not Avai lable ropivacaine (PF) 5 mg/mL (0.5 %) injection solution in office 06/15 completed [facility] [address] -[phone] Not Available Not Available Not Available Pepper Garcia [facility] spacer USE WITH INHALER active Not Available Not Available No t Available Qvar RediHaler 80 mcg/actuati on HFA breath activated aerosol INHALE 2 PUFFS BY MOUTH TWICE A DAY 10/08 completed Not Available Not Available Not Available Wegovy 0.25 mg/0.5 mL subcutaneou s pen injector 0.5 ml sc qweek 02/22 completed Not Available Not Available Not Available Vitals Date Recorded Body height Body mass index (BMI) Body weight Heart rate Respiratory rate Oxygen saturation Oxygen saturation in Arterial blood by Pulse oximetry Systolic blood pressure Diastolic blood pressure Provider Name and Address Organization Details Last Updated DateTime 4 175.26 cm 35.7 kg/m2 557177. 35 g 82 /min 14 /min 99 % 99 % 129 mm[Hg] 90 mm[Hg] Rimma Ruano [facility] [employer] [facility] 14:54:07 Date Recorded Body height Body mass index (BMI) Body weight Body temperature Heart rate Oxygen saturation Oxygen saturation in Arterial blood by Pulse oximetry Systolic blood pressure Diastolic blood pressure Provider Name and Address Organization Details Last Updated DateTime 4 175.26 cm 34.7 kg/m2 542477. 21 g 96.7 [degF] 82 /min 94 % 94 % 124 mm[Hg] 86 mm[Hg] Shu Varela RN [facility] [employer] [facility] 4 16:05:08 Date Recorded Body height Body mass index (BMI) Body weight Provider Name and Address Organization Details Last Updated DateTime 06/27/2024 175.26 cm 34.7 kg/m2 604711.21 g Rimma Ruano [facility] [employer] [facility] 06/27/2024 16:56:49 Date Recorded Body height Body mass index (BMI) Body weight Body temperature Heart rate Respiratory rate Oxygen saturation Oxygen saturation in Arterial blood by Pulse oximetry Provider Name and Address Organization Details Last Updated DateTime 4 175.26 cm 34.7 kg/m2 703660. 21 g 98.6 [degF] 76 /min 14 /min 96 % 96 % Linda Knight MA [facility] [employer] [facility] 4 10:33:28 Date Recorded Body height Body mass index (BMI) Body weight Heart rate Oxygen saturation Oxygen saturation in Arterial blood by Pulse oximetry Systolic blood pressure Diastolic blood pressure Provider Name and Address Organization Details Last Updated DateTime 5 175.26 cm 34.7 kg/m2 719545. 21 g 96 /min 97 % 97 % 146 mm[Hg] 98 mm[Hg] LAUREN Zarco [place] [facility] [place] [employer] [facility] 5 11:39:29 Social History Question Answer Notes LastModified by [employer] Details LastModified Time Tobacco Smoking Status Never Smoker Not Available [facility] 11/16/2022 01:10:04 Do You Have An Advance Directive? No [id number] Information not available 11/16/2022 What Is Your Level Of Caffeine Consumption? Heavy [id number].[id number] 026 Information not available 11/16/2022 How Much Tobacco Do You Chew? None [id number] 026 Information not available 11/16/2022 In The 14 Days Before Symptom Onset, Have You Had Close Contact With A Laboratory-confirm ed COVID-19 While That Case Was Ill? No [id number] 026 Information not available 11/16/2022 In The 14 Days Before Symptom Onset, Have You Had Close Contact With A Person Who Is Under Investigation For COVID-19 While That Person Was Ill? No [id number] Information not available 11/16/2022 What Type Of Diet Are You Following? REGULAR [id number].[id number] 026 Information not available 11/16/2022 Which Illicit Or Recreational Drugs Have You Used? No [id number] 026 Information not available 11/16/2022 Do You Use Your Seat Belt Or Car Seat Routinely? Yes [email or web address] Information not available 01/18/2023 How Much Tobacco Do You Smoke? No MIGRATION.[id number] 026 Information not available 11/16/2022 Do You Participate In Social Media? Yes Information not available 01/18/2023 Do You Use Sunscreen Routinely? No [id number].[id number] 026 Information not available 11/16/2022 Has Tobacco Cessation Counseling Been Provided? No [email or web address] Information not available 01/18/2023 Sex: Unknown Functional Status Question Answer Note LastModified by [employer] Details LastModified Time Do you use any illicit or recreational drugs? Yes [email or web address] Information not available 01/18/2023 Do you or have you ever used any other forms of tobacco or nicotine? No Information not available 01/18/2023 What is your level of alcohol consumption? None MIGRATION.[id number] 0276 Information not available 11/16/2022 Do you or have you ever used smokeless tobacco? Never used smokeless tobacco MIGRATION.[id number] Information not available 11/16/2022 Do you or have you ever used e-cigarettes or vape? Never used electronic cigarettes MIGRATION.[id number] Information not available 11/16/2022 What is your exercise level? Moderate [id number].[id number] Information not available 11/16/2022 Mental Status Question Answer Note LastModified by Organization D etails LastModified Time Do you feel stressed (tense, restless, nervous, or anxious, or unable to sleep at night)? [id number] [email or web address] Information not available 01/18/2023 Family History Nothing Reported Notes:adopted Patient Adop wilmer Medical History Condition Response MRSA N SLEEP APNEA N ALLERGIES/HAYFEVER N LUNG DISEASE/DISORDER N INSOMNIA N RADIATION / CHEMOTHERAPY N COPD N HIGH CHOLESTEROL / HYPERLIPIDEMIA N HYPERTHYROIDISM N BLOOD DISEASES N EAR OR HEARING PROBLEMS N HYPOTHYROIDISM N DEPRESSION (INCLUDING POST ) N HAVE YOU BEEN HOSPITALIZED OR SEEN IN [facility] ER IN THE PAST YEAR ? N STROKE/TIA N ULCERS N OBESITY N ANEURYSM N HISTORY WITH COMPLICATIONS WITH ANESTHES IA ? N NO SIGNIFICANT PAST MEDICAL HISTORY N USE OF BLOOD THINNERS N DIABETES, TYPE N ENT N PARATHYROID DISEASE N SEASONAL ALLERGIES N HEARTBURN / REFLUX N HEPATITIS / LIVER DISEASE N SLEEP DISORDER N SEIZURES/EPILEPSY N HEADACHES/MIGRAINES Y CHF N PACEMAKER N DIZZINESS N AIDS/HIV N HEART DISEASE/HEART PROBLEMS N FRACTURES N HYPERTENSION N CANCER: SPECIFY N TOURETTE'S N BLOOD TRANSFUSION N ANEMIA/BLOOD DISORDER N ANESTHESIA COMPLICATIONS N CHRONIC EAR INFECTIONS N TUBERCULOSIS N Immunizations Vaccine Type Date Status Note Provider Nam e and Address Organization Details Recorded Time Influenza, split virus, quadrivalent, PF 06/23/2015 completed Not Available [employer] 3 01:24:49 Past Encounters Encounter ID Performer Location Encounter Start Date Encounter Closed Date Diagnosis/Indication Diagnosis SNOMED-CT Code Diagnosis ICD10 Code Diagnosis Note [id number] Earlene Garcia MD [facility] [address] [facility] [place] [address] 01/06/2021 00:00:00 01/13/2021 17:33:30 [id number] Earlene Garcia MD [facility] [place] [address] [place] [address] 02/03/2021 00:00:00 02/03/2021 13:17:27 [id number] Juan Beaulieu MD [facility] E[facility] [place] [address] [place] [address] 03/18/2021 00:00:00 03/18/2021 12:12:35 [id number] Earlene Garcia MD [facility] [place] [address] [place] [address] 05/06/2021 00:00:00 05/06/2021 09:54:03 [id number] Earlene Garcia MD [facility] [place] [address] [place] [address] 08/09/2021 00:00:00 08/09/2021 10:55:14 [id number] Earlene Garcia MD [facility] [place] [address] [place] [address] 09/06/2021 00:00:00 09/06/2021 12:46:16 [id number] aErlene Garcia MD [facility] [place] [address] [place] [address] 12/06/2021 00:00:00 12/06/2021 09:01:30 [id number] Earlene Garcia MD [facility] [place] [address] [place] [address] 03/07/2022 00:00:00 03/07/2022 09:17:49 [id number] [facility] _ATHENA_M IGRATION_ DEFAULT_1 _1 , 03/25/2022 00:00:00 03/27/2022 15:05:27 [id number] [facility] Pod[facility] [place] [address] [place] [address] 04/18/2022 00:00:00 04/18/2022 12:03:37 [id number] Earlene Garcia MD [facility] Primary Care [place] [address] [facility] [address] [place] [address] 06/07/2022 00:00:00 06/07/2022 10:03:50 [id number] Earlene Garcia MD [facility] Primary Care [place] [address] [facility] [address] [place] [address] 09/06/2022 00:00:00 09/06/2022 09:48:08 [id number] Earlene Garcia MD [facility] [place] [address] [facility] [address] [place] [address] 10/19/2022 00:00:00 10/19/2022 09:41:42 [id number] Earlene Garcia MD [facility] [place] [facility] [address] [facility] [address] [place] [address] 11/16/2022 13:56:24 11/17/2022 10:37:43 Degeneration of cervical intervertebral disc 24468882 M50.30 no interval changelast MRI showed degenerati ve changes in cervical spine in 2018 and symptoms have worsened since thenMRI showed no significan t change since 2018 but pt is struggling with his quality of lifeneuros urgery consult no surgical option, continue medical management Pt understand s this medication has risk for abuse/depe ndence and agrees to take it only as prescribed and to guard from loss/theft controlled substance contract signed 10/19/22dis ussed new controlled substance policy, next month will decrease to #90 oxycodone/ apap and then down to #60 thereafter 50 pound lifting restrictio nIL prescripti on monitoring website reviewedUD S appropriat e 09/06/22 Hernia of anterior abdominal wall 668297069 K43.9 pt with bloating and appetite change and abd painhernia noted on examwill get CT abd/pelvis call/retur n if no improvemen t in 1-2 days or sooner if neededrevi ewed s/s that warrant urgent/freya rgent eval in meantime [id number] Earlene Garcia MD [facility] Primary Care [place] [address] [facility] [address] [place] [address] 01/18/2023 09:11:32 01/18/2023 10:16:56 Umbilical hernia 259849108 K42.9 K40.20 Degenerati on of lumbar intervertebral disc 90963113 M51.36 Fatigue 56657633 R53.83 R63.5 [id number] Earlene Garcia MD [facility] Primary Care [place] [address] [facility] [address] [place] [address] 02/22/2023 09:04:28 02/22/2023 11:05:18 Male hypogonadism 20538943 E29.1 reviewed labsbegin testostero ne replacemen t 0.5 ml q2 weeksf/u in 3 months or sooner if needed Degenerati on of lumbar intervertebral disc 92835351 M51.36 not in good controlinc rease oxycodone/ apap to tid dosing for 1 month then reassess Gastroesop hageal reflux disease without esophagitis 280273265 K21.9 Avoid greasy/spi cy/acidic foodEat small, frequent mealsCall if any worsening symptoms including increased pain or blood in stools or if symptoms do not resolve in 14 dayspantop razole 40 mg daily Pain in left thumb 84152 92575 478399 M79.645 ortho referral [id number] Earlene Garcia MD [facility] Primary Care [place] [address] [facility] [address] [place] [address] 02/28/2023 10:31:14 02/28/2023 16:37:33 [id number] Power Carter MD [facility] Ortho [place] [address] [place] [address] 03/01/2023 08:46:00 03/01/2023 12:04:17 Pain of left hand 7717583081 87818 M79.642 [id number] Clifton cruz MD [facility] General Surgery [address] [place] [address] 05/02/2023 11:05:48 05/02/2023 15:01:36 Umbilical hernia 922208538 K42.9 [id number] Clifton cruz MD [facility] General Surgery [address] [place] [address] 05/30/2023 12:04:25 05/31/2023 14:36:42 [id number] Earlene Garcia MD [facility] Primary Care [facility] [address] [facility] [address] [place] [address] 06/15/2023 12:01:40 06/15/2023 12:45:21 Male hypogonadism 57259015 E29.1 recheck labs and increase testostero ne replacemen t if neededf/u in 3 months or sooner if needed Degenerati on of lumbar intervertebral disc 67383453 M51.36 stablecont inue increase oxycodone/ apap tid Rib pain 525324286 R07.8 1 Fatigue 55518589 R53.83 R63.5 Restless legs 07771107 G 25.81 [id number] Earlene Garcia MD [facility] Primary Care [address] [place] [address] 06/16/2023 08:17:29 06/16/2023 16:14:50 [id number] Power Carter MD [facility] Ortho [place] [address] [place] [address] 07/14/2023 09:02:13 07/14/2023 10:09:58 Arthritis of first carpometacarpal joint of left hand 2266173351 423680 M13.968 [id number] Earlene Garcia MD [facility] Primary [facility] [place] [address] [facility] [address] [place] [address] 12/04/2023 09:10:16 12/04/2023 09:54:23 Arthritis of first carpometacarpal joint of left hand 4233587689 925058 M13.842 last injection 07/10, not helpfulwou ld like second opinion Eczema 91641584 L30.9 not in good controltri amcinolone 40 mg IM x 1continue triamcinol one bid and clobetasol 0.05% for up to 2 weeks at a time [id number] Colby Galaviz DPM [facility] Podiatry [place] [address] [place] [address] 03/04/2024 10:58:56 03/05/2024 15:23:15 Congenital pes planus 57104975 Q66.51 Q66.52 educated on x-raysEduc ated on orthoticsr ecommend [facility] [place] [facility] Tibialis a nterior tendinitis 947149741 M76.819 left footrice therapyno strenuous activities work release given- patient states he is able to return work and does not want to be off work any longermay obtain topical Voltaren gel apply to the area pain per instructio nsfollow-u p as 2 weeks if continues to be problemati c Bunion 215358033 M21.61 9 educated on treatment optionsRec ommend [facility] orthotics with supportive shoe gear Curly toe 343151408 M20. 5X9 adductovar us rotation 4th and 5th toes leftconser vative offloading and supportive shoe gearRecomm end orthotics Ingrowing toenail 867040 009 L60.0 bilateral great toenailsBr iefly discuss treatment optionsFol low-up for partial matrixecto my of the offending nail corners [id number] RASHID ColonC [facility] Primary Care [facility] [address] [facility] [address] [place] [address] 03/05/2024 09:26:55 03/05/2024 10:15:02 Degeneration of lumbar intervertebral disc 48082306 M51.36 Drug of abuse screen 897 25746 Z02.83 Pt denies any lending, selling, or borrowing of medication s. Denies any cp, sob, palpitatio ns, or unusual weight loss.Revie wed controlled substance agreement requiremen ts. Refill given.[place] checked today. [id number] WANDY Colon-C [facility] Primary Care [facility] [address] [facility] [address] [place] [address] 05/07/2024 08:53:41 05/07/2024 09:24:25 Arthritis of first carpometacarpal joint of left hand 7854380465 994099 M13.842 ROM and strength are limited Skin lesion 85295884 L98 .9 Degenerati on of lumbar intervertebral disc 48800396 M51.36 exacerbati on noted recently to lumbar backROM and strength are limited to painnumbne ss/tinglin g to federico feet continuesa lready seeing pain management for this issue, given referral to ortho spine surgeonRTW to be determined he will update this office with dates needed to complete forms [id number] Colby Galaviz DPM [facility] Podiatry [place] [address] [facility] [address] [place] [address] 06/11/2024 14:40:35 06/12/2024 13:38:45 Ingrowing toenail 061815632 L60.0 bilateral great toenailsri ght medial corner nail spicule great toeboth corners left great toe thisdiscus sed treatment options patient elects to continue with planned procedurec are daily if becomes infected returned to office immediatel yFollow-up in 10 days [id number] AURELIANO Colon [facility] Primary Care [facility] [address] [facility] [address] [place] [address] 06/19/2024 15:58:35 06/19/2024 16:39:55 Degeneration of lumbar intervertebral disc 22171915 M51.369 Has been doing PTsaw pain management yesterdayM RI will be completed on July 25, cervical and lumbarshou ld have oxycodone 7.5 available at pharm Abdominal pain 06084649 R10.9 abd pain noted to right lower abd Fatigue 90469045 R53.83 Cobalamin deficiency 190 650282 E53.8 [id number] Colby Galaviz DPM [facility] Podiatry [place] [address] [place] [address] 06/27/2024 16:47:34 07/01/2024 10:53:36 Ingrowing toenail 822028676 L60.0 bilateral great toenailsco ntinue wound care dailyFollo w-up in 10 days Cellulitis of toe 146209 04 L03.031 right great toe [id number] Clifton cruz MD [facility] General Surgery [address] [address] 07/18/2024 10:28:36 07/18/2024 12:09:00 Abdominal pain 45648391 R10.9 [id number] Berna Duke MD [facility] General Surgery [address] [address] 10/16/2024 11:31:45 10/16/2024 12:04:29 Metabolic dysfunction-associate d steatohepatitis 095836349 K75.81 Hepatitis C screening 41 2415115 Z11.59 Health Concerns Section Related Observation LastModified by Organization Detai ls LastModified Time None Recorded Concern Status LastModified by Organization Details LastModified Time None Recorded Advance Directives Directive N: Payers Encounter Date Sequence Insurance Name Policy Number Policy Cordero Covered Member ID Cordero Member ID Guarantor Name 06/11/2024 1 [facility] (MEDICAID HMO) [id number] Dina Schmacker [id number] Dina E Schmacker 06/19/2024 1 [facility] (MEDICAID HMO) [id number] Dina Schmacker [id number] Dina E Schmacker 06/27/2024 1 [facility] (MEDICAID HMO) [id number] Dina Schmacker [id number] Dina E Schmacker 07/18/2024 1 [facility] (MEDICAID HMO) [id number] Dina Schmacker [id number] Dina E Schmacker 10/16/2024 1 [facility] (MEDICAID HMO) [id number] Dina Schmacker [id number] Dina E Schmacker Notes Date Note Type Note Provider Name and Address Organization Details Recorded Time 06/11/2024 text/html . Patient is a 48-year-old male who returns the office for ingrown toenail issues. Patient has a previous total matrix to which he has a nail spicule to the medial corner of the right great toenail and has incurvated nail corners the medial and lateral to left great toe. Patient denies any open wounds or infection. Patient is here for partial matrixectomy of the offending nail corners. Patient elects to proceed with procedure despite possible risks. Patient denies any other complaints. 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 Patient is a 48-year-old male who returns the office for follow-up on ingrown toenail procedure of the right great toe. Patient has some mild inflammatory changes with some serous drainage. Patient states he has mild pain he denies any fever, chills, nausea or vomiting. Patient states he is trying to keep the area clean and dry. Patient denies any other complaints. Colby Galaviz DPM [address], [place], [address], [employer] [facility] [employer] 07/01/2024 09:05:42 07/18/2024 text/html Patient complain s of a feeling of something pushing outwards in his right upper abdomen. Has had for several months. Denies nausea vomiting, pain after meals, changes in bowel habits or any other constitutional symptoms. Has chronic back issues, We will see a spine surgeon in the next few weeks. Clifton Bailon MD [address], [place], [address], [facility] [employer] [facility] 07/18/2024 14:40:00 10/16/2024 text/html DINA WAS SEEN IN THE OFFICE TODAY FOR EVALUATION . PT C/O ABD PAIN . RUQ U/S SHOWED FATTY LIVER ALONG WITH GB SLUDGE . PT REPORTS BACK INJURY AND IS IN PT NOW. HE DENIES FAST FOODS / ETOH USE/ DM. HE DOES NOT EXERCISE MUCH . HE DENIES LIVER DZ . Berna Duke MD [address], [place], [address], [place] [facility] 10/16/2024 12:06:30
--- OUTSIDE RECORDS SUMMARY | 2025-02-04 11:21 | XMS_ITS | Encounter Summary ---
Author Organization [facility] Address [address] [place] [address] Phone Care Team Providers Care Outboard Motorboat Rigger Name Role Phone Earlene Garcia MD Primary Care Provider + Reason for Visit * Reason Comments Medication Refill Encounter Details Date Type Department Care Team (Late st Contact Info) Description 02/17/2020 Refill [facility] - Neurology - [place] [address] [place] [phone] Hector Munguia MD [address] [place] [address] Medication Refill Social History Tobacco Use Types Packs/Day Years Used Date Smoking Tobacco: Former Cigarettes 1.5 15 0 02/15/1997 - 02/16/2012 Smokeless Tobacco: Former Alcohol Use Standard Drinks/Week Comments No 0 (1 standard drink = 0.6 oz pur e alcohol) Sex and Gender Information Value Date Recorded Sex Assigned at Not on file 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
--- OUTSIDE RECORDS SUMMARY | 2025-02-04 11:21 | XMS_ITS | Clinical Summary ---
Author Organization [facility] Address [address] [place] [address] Care Team Providers Care Garden Machinery Mechanic Name Role Phone Terry Esteves NP Primary Care Provider [phone] Allergies Active Allergy Reactions Criticality Noted Date [...] Encounters Date Type Department Care Team Description 01/01/2025 Telephone [facility] [place] [facility] [address] [facility] [address] [place] [address] Emily Gomez MD No PA neede for pregabalin per Mccord 12/19/2024 Orders Only [facility] [place] [facility] [address] [facility] [address] [place] [address] Emily Gomez MD 12/11/2024 2:09 PM CDT - 12/11/2024 11:59 PM CDT Hospital Encounter [facility] at the [facility] [address] [facility] [address] [place] [address] Emily Gomez MD Lumbar radiculopathy; Spinal stenosis of lumbar region with neurogenic claudication Discharge Disposition: Discharge to home or self care 12/06/2024 Telephone [facility] at the 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 Please refer to the physician's procedure / OR operative note. Lorene Martin MD IMG PAIN MGMT PROCE WILEYES Final Result RAD_PACS_[facility] from Last 3 Months Insurance [facility] Member Subscriber Plan / Payer (Ef fective 2024-Present) Name:Adam Saunders Relation to Subscriber:Self Name:VaniAdam dockery Payer ID:[id number] (NAIC) Group ID:Not on file Type:MEDICAID RISK OTHER Address: [place] [id number] Care Teams Garden Machinery Mechanic Relationship Specialty Start Date End Date Terry Esteves NP [address] [place] [address] [place] [address] PCP - General Family Medicine 03/19/24
--- OUTSIDE RECORDS SUMMARY | 2025-02-04 11:21 | XMS_ITS | Referral Summary ---
Author Organization [facility] Address [facility] [place] [address] Care Team Providers Care Zyglo Inspector Name Role Phone Terry Esteves NP Primary Care Provider [phone] Encounters Date Type Department Care Team Description 01/01/2025 Telephone [facility] at the [facility] Advanced Medicine [address] [place] [address] Advanced Medicine [address] [place] [address] Emily Gomez MD No PA neede for pregabalin per Mccord 12/19/2024 Orders Only [facility] at the [facility] Advanced Medicine [address] [place] [address] Advanced Medicine [address] [place] [address] Emily Gomez MD 12/11/2024 2:09 PM CDT - 12/11/2024 11:59 PM CDT Hospital Encounter [facility] at the [facility] Advanced Medicine [address] [place] [address] Advanced Medicine [address] [place] [address] Emily Gomez MD Lumbar radiculopathy; Spinal stenosis of lumbar region with neurogenic claudication Discharge Disposition: Discharge to home or self care 12/06/2024 Telephone [facility] at the [facility] Advanced Medicine [address] [place] [address] Advanced Medicine [address] [place] [address] Emily Gomez MD [facility] Preprocedure from Last 3 Months Allergies Active [...] on file 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 Please refer to the physician's procedure / OR operative note. Lorene Martin MD IMG PAIN MGMT PROCE DURES Final Result [facility] from Last 3 Months Insurance [facility] Care Teams Zyglo Inspector Relationship Specialty Start Date End Date Terry Esteves NP [address] [address] PCP - General Family Medicine 03/19/24
--- OUTSIDE RECORDS SUMMARY | 2025-02-04 11:21 | XMS_ITS | Clinical Summary ---
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
--- OUTSIDE RECORDS SUMMARY | 2025-02-04 11:21 | XMS_ITS | CONTINUITY OF CARE DOCUMENT ---
Author Name luis smith Address Unknown Organization [facility] Address [address] [facility] [address] [place] [address] Phone [phone] Care Team Providers Care Packaging Sales Name Role Phone Cleve Jimenez MD Unavailable [phone] Cleve Jimenez MD Unavailable [phone] INSURANCE PROVIDERS Payer name Policy type / Coverage type [place] red green party ID [id number] MEDICA[employer] Medicaid [id number]
== END 2025-02-04 11:16 | disposition home or self-care (01) ==
LOC: ANHIMG 11:17
PROVIDERS: Visit Provider Physician Assistant Surgical
DX: M18.0 Bilateral primary osteoarthritis of first carpometacarpal joints (principal)
CPT/HCPCS: 73130

== ENCOUNTER 2025-03-28 13:30 | Outpatient (RCR) | payer OTHER, SELFPAY ==
--- NOTE | 2025-01-06 09:11 | OTOPEVAL1 ---
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 He presents today to initiate therapy and for fabrication of a hand based orthosis. He is right handed. Reported Pain Level Pain Score 6: Self Report Assessment OT Clinical Summary Patient referred to OT 2 weeks s/p left thumb CMC arthroplasty with Arthrex tightrope. Today a custom hand based thumb spica was fabricated for patient to wear maritime guard, removing for hand hygiene and ROM HEP. Continued follow up indicated for HEP progression, use of modalities, and therapeutic exercises and activities to facilitate improved functional ROM, strength, and use of his left hand. Plan of Care Interventions Therapeutic Exercise,Manual Therapy,Therapeutic Activities,Ultrasound,Paraffin OT Services Indicated Yes Treatment Frequency and 1x/week for 6 visits Duration These treatments will address the objective and functional deficits as defined above. The patient will be advanced safely and appropriately in order for the patient to progress towards his/her prior level of function. Additional exercises will be introduced and as well as a comprehensive home exercise program upon discharge, if needed, ?to ensure carryover of functional gains achieved in the clinic. This treatment plan has been reviewed and agreement upon by the patient.
--- NOTE | 2025-01-06 09:11 | OPREHPOC ---
Outpatient Therapy Plan of Care This is a Multidisciplinary Plan of Care that may contain components documented by all disciplines (PT, OT, and ST.) OT Problem 1 OT Problem #1 Knowledge Deficit OT Goal 1 Goal / Goal Update Patient to be independent with instructed materials. Target Visit 6 OT Problem 2 OT Problem #2 Impaired Range of Motion OT Goal 1 Goal / Goal Update Increase active ROM of his left UE: - thumb to be able to complete serial opposition - wrist flexion to 50 deg. - wrist extension to 50 deg. - wrist RD to 10 deg. Target Visit 6 OT Problem 3 OT Problem #3 Impaired Strength OT Goal 1 Goal / Goal Update *No Strengthening until 6 weeks post op: - Patient to be able to complete standpipe tender/pinching with yellow putty x5 minutes without pain to increase functional strength for ADLs. Target Visit 6
--- NOTE | 2025-02-18 09:58 | OTOPPROG ---
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 He reports feeling like his ROM is improving and that he feels very weak. He reports he is able to use his left hand to wash his hair and dress, however he is unable to squeeze the shampoo bottle with the left hand. He reports he is trying to use his left hand more in the kitchen, but continues to be unable to grasp and push a fork into an item with the left while the right hand cuts with a knife. He reports being able to lift a half gallon of milk, but not a full gallon. Assessment OT Clinical Summary Patient is 8 weeks s/p left thumb CMC arthroplasty with Arthrex tightrope. He is progressing very well with ROM. Wrist ROM is near normal limits, lacking about 5-[address] Finger ROM is WNL. Thumb ROM - he is able to flex, radially abduct, and palmarly abduct though functional limits. When completing serial opposition the thumb is flexing and opposing well, however he has about 1 cm gap when trying to touch the small finger. The small finger is lacking strength in the opponens digiti minimi. His HEP has been progressed to light strengthening at 50% pinch. Continued follow up indicated to progress functional strength and use of his left hand/UE. Plan of Care Interventions Therapeutic Exercise,Manual Therapy,Therapeutic Activities,Ultrasound,Paraffin OT Services Indicated Yes Treatment Frequency and 1x/week for 4 visits Duration These treatments will address the objective and functional deficits as defined above. The patient will be advanced safely and appropriately in order for the patient to progress towards his/her prior level of function. Additional exercises will be introduced and as well as a comprehensive home exercise program upon discharge, if needed, ?to ensure carryover of functional gains achieved in the clinic. This treatment plan has been reviewed and agreement upon by the patient.
--- NOTE | 2025-02-18 09:58 | OPREHPOC ---
Outpatient Therapy Plan of Care This is a Multidisciplinary Plan of Care that may contain components documented by all disciplines (PT, OT, and ST.) OT Problem 1 OT Problem #1 Knowledge Deficit OT Goal 1 Goal / Goal Update Patient to be independent with instructed materials. ---OT POC UPDATE 02/18/25--- Met, continue to monitor as HEP is progressed Target Visit 12 OT Problem 2 OT Problem #2 Impaired Range of Motion OT Goal 1 Goal / Goal Update Increase active ROM of his left UE: 1. thumb to be able to complete serial opposition 2. wrist flexion to 50 deg. 3. wrist extension to [address] to 10 deg. ---OT POC UPDATE 02/18/25--- 1. progressing, 1 cm away, continue goal 2. met 3. met 4. Met Target Visit 12 OT Problem 3 OT Problem #3 Impaired Strength OT Goal 1 Goal / Goal Update *No Strengthening until 6 weeks post op: 1. Patient to be able to complete visual display associate/pinching with yellow putty x5 minutes without pain to increase functional strength for ADLs. ---OT POC UPDATE 02/18/25--- 1. Pain increases to 2/10 with putty ther ex, continue goal NEW STRENGTH GOAL 2. Pt to progress to 2 lb. wrist strengthening in all planes x20 reps Target Visit 12
--- NOTE | 2025-03-27 09:19 | PCOTNOTE ---
Patient called to report he got a flat tire on his way into his appointment this morning. He was having phone trouble and couldn't call before the appointment time to cancel. He is going to try to reschedule his re-eval, but needs to see when he can get his tire fixed.
--- NOTE | 2025-03-28 14:07 | OTOPDC ---
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 He reports his pain is getting better with tasks. He has progressed to being able to squeeze the shampoo bottle with the left hand and use a fork while the right hand cuts with a knife. He is also now able to lift a gallon of milk. Reported Pain Level Pain Score 2/10 with putty 0/10 at rest Assessment OT Clinical Summary Patient is 13 weeks s/p left thumb CMC arthroplasty with Arthrex tightrope. He has progress to normal limits with wrist and thumb ROM . His wrist, snowboard instructor, and pinch strengths are improving toward normal limits. (L) snowboard instructor strength improved from 54 lbs. to 75 lbs. (L) lateral pinch improved from 4 lbs. to 10 lbs. (L) palmar pinch improved from <1 lb. to 8 lbs. He is using his hand for ADLs and reports his function is coming along very well. Some residual pain with use (2/10) and no pain at rest. Reviewed HEP today and he demonstrates excellent understanding. Plan of Care OT Services Indicated No
== END 2025-03-31 10:58 | disposition home or self-care (01) ==
LOC: ANHOT 13:30
PROVIDERS: Visit Provider Physician Assistant Surgical
DX: M18.0 Bilateral primary osteoarthritis of first carpometacarpal joints (principal)
CPT/HCPCS: 97018; 97110; 97140; 97165; L3806; L3913

== ENCOUNTER 2025-05-05 08:49 | Outpatient (CLI) | payer OTHER, SELFPAY ==
--- NOTE | ~2025-05-05 | XR_ITS ---
Left Hand Technique: PA, oblique, and lateral views were obtained. Clinical History: Arthritis COMPARISON: 02/04/2025 Findings: No acute fracture or dislocation is seen. Status post trapezium resection. Stable postopera tive hardware at the bases of the first and second metacarpals.. Soft tissues are unremarkable. Impression: Stable postoperative change at the base of the thumb and index finger with prior trapezium resection. Reviewed, dictated and finalized at location M. Impression: Stable postoperative change at the base of the thumb and index finger with prio r trapezium resection.
--- OUTSIDE RECORDS SUMMARY | 2025-05-05 09:07 | XMS_ITS | Clinical Summary ---
Author Organization [facility] Address [address] [place] [place] [address] Care Team Providers Care Vegetable Loader Machine Operator Name Role Phone Earlene Garcia MD Primary Care Provider [phone] [facility],non-owned Affiliates and Associated Physician Practices is amultiple site organization consisting of ambulatory clinics and hospital sitesin [place], [place], [place] and [place]. This disclosure is being madepursuant to the Care Everywhere program and may not contain all information available regarding this patient. Last updated 18.[facility] Allergies Active Allergy Reactions Criticality Noted [...] Active vitamin D, ergocalciferol, (DRISDOL) 1.25 MG (21450 UT) capsule 08/07/2021 Active escitalopram (LEXAPRO) 20 [...] Comments Blood Pressure 118/81 08/11/2021 9:50 AM ADVERTISING INTERNSHIP Pulse 107 08/11/2021 9:50 AM ADVERTISING INTERNSHIP Temperature 36.8 C (98.2 F) 08/11/2021 9:50 AM ADVERTISING INTERNSHIP Respiratory Rate 16 05/22/2018 9:16 AM CDT Oxygen Saturation 95% 08/11/2021 9:50 AM ADVERTISING INTERNSHIP Inhaled Oxygen Concentration - - Weight 102.1 kg (225 lb) 08/11/2021 9:50 AM ADVERTISING INTERNSHIP Height 177.8 cm (5' 10) 08/11/2021 9:50 AM ADVERTISING INTERNSHIP Body Mass Index 32.28 08/11/2021 9:50 AM ADVERTISING INTERNSHIP Plan of Treatment Health Maintenance Due Date Last Done Comments COLOGUARD (AGES 45-75) - COLON CA SCREENING 1973 COLON MONITORING 1973 COLONOSCOPY [...] 3-dose series) 1992 SCREENING FOR DIABETES 08/11/2021 8, 04/20/2018, 04/20/2018, Additional history exists LIPID TESTING 04/20/2023 04/20/2018 PNEUMOCOCCAL VACCINE 50+ (1 of 1 - PCV) 2023 ZOSTER VACCINE (1 of 2) 2023 COVID-19 VACCINE (1 - 2023-25 season) 2024 DEPRESSION SCREENING 09/18/2024 HIB VACCINE Aged Out No longer eligi ble based on patient's age to complete this topic HPV VACCINE Aged Out No longer eligi ble based on patient's age to complete this topic MENINGOCOCCAL (Group B) VACCINE SHARED DECISION-MAKING Aged Out No longer eligible based on patient's age to complete this topic MENINGOCOCCAL GROUPS A/C/Y/W VACCINE Aged Out No longer eligible based on patient's age to complete this topic Insurance [facility] [address] [place] [address] [facility] [address] [place] [id number] [place] [address] Care Teams Vegetable Loader Machine Operator Relationship Specialty Start Date End Date Earlene Garcia MD [address] [place] [address] PCP - General 10/17/16
--- OUTSIDE RECORDS SUMMARY | 2025-05-05 09:07 | XMS_ITS | Encounter Summary ---
Author Organization [facility] Address [address] [place] [address] Phone Care Team Providers Care Munitions Factory Worker Name Role Phone Earlene Garcia MD Primary Care Provider + Reason for Visit * Reason Comments Medication Refill Encounter Details Date Type Department Care Team (Late st Contact Info) Description 02/23/2021 Refill [facility] - [facility] - [place] [address] [place] [id number] Hector Munguia MD [address] [place] [address] Medication Refill Social History Tobacco Use Types Packs/Day Years Used Date Smoking Tobacco: Former Cigarettes 1.5 15 0 02/15/1997 - 02/16/2012 Smokeless Tobacco: Former Alcohol Use Standard Drinks/Week Comments No 0 (1 standard drink = 0.6 oz pur e alcohol) Sex and Gender Information Value Date Recorded Sex Assigned at Not on file 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
--- OUTSIDE RECORDS SUMMARY | 2025-05-05 09:07 | XMS_ITS | Clinical Summary ---
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 Gender Identity Not on file Sexual Orientation [...] 1:33 PM CDT Height 177.8 cm (5' 10) 02/01/2019 1:33 PM CDT Body Mass Index 32 02/01/2019 1:33 PM CDT Plan of Treatment Health Maintenance Due Date Last Done Comments Hepatitis C Virus (HCV) Screening 1973 TdaP Immunization 1973 Hepatitis B Immunization (1 of 3 - 19+ 3-dose series) 1992 Cologuard 2018 Immunochemical Fecal Occult Blood 2018 Pneumococcal Immunization (5 0+ years) (1 of 1 - PCV) 2023 Zoster Immunization (1 of 2) 2023 SARS-COV-2 Immunization (1 - 2023-25 season) 2024 Influenza Immunization (#1) 2025 06/23/2015 Colonoscopy 06/06/2028 06/06/2018 Colorectal Cancer Screening 06/06/2028 Respiratory Syncytial Virus (RSV) Immunization (Adult) (1 - 1-dose 75+ series) 2048 Human Papillomavirus (HPV) Immunization Aged Out No longer eligible b ased on patient's age to complete this topic Meningococcal Immunization (ACWY) Aged Out No longer eligible based on patient's age to complete this topic Rotavirus Immunization Aged Out No lo nger eligible based on patient's age to complete this topic Insurance MEDICAID [employer] MED[employer]ID [place] Care Teams Silo Erector Relationship Specialty Start Date End Date Earlene Garcia MD [address] [place] [id number] PCP - General Family Medicine 03/14/18
--- OUTSIDE RECORDS SUMMARY | 2025-05-05 09:07 | XMS_ITS | Clinical Summary ---
Author Organization [facility] Address [address] [place] [address] Care Team Providers Care Mushroom Sorter Grader Name Role Phone Terry Esteves NP Primary Care Provider [phone] Allergies Active Allergy Reactions Criticality Noted Date Comments Adhesive Swelling,Rash,Redness Medium 05/07/2024 Haemophilus Influenzae Type B Swelling Medium 2016 Medications testosterone cypionate (DEPO-TESTOTE LYNN) 200 mg/mL injection INJECT 0.5 ML INTRAMUSCULARLY EVERY 2 WEEKS Active triamcinolone (KENALOG) 0.1 % ointment APPLY THIN COAT TO AFFECTED AREA TWICE A DAY Active clobetasoL (TEMOVATE) 0.05 % ointment APPLY A THIN LAYER TO THE AFFECTED AREA(S) BY TOPICAL ROUTE 2 TIMES PER DAY UP TO 14 DAYS AT A TIME Active loratadine (CLARITIN) 10 mg tablet Take 1 tablet (10 mg total) by mouth daily Active Dulera 100-5 mcg/actuation inhaler Inhale 2 puffs 2 (two) times a day Active meloxicam (MOBIC) 15 mg tablet Take 1 tablet (15 mg total) by mouth daily Active sucralfate (CARAFATE) 1 gram tablet TAKE 1 TABLET BY MOUTH FOUR TIMES A DAY NEEDED Active pantoprazole DR (PROTONIX) 40 mg EC tablet Take 1 tablet (40 mg total) by mouth daily Active cholecalcifer ol (VITAMIN D-3) 2000 unit capsule Take 1 capsule (2,000 Units total) by mouth daily Active cyanocobalami n (Vitamin B-12) 1,000 mcg tablet Take 1 tablet (1,000 mcg total) by mouth once a week Active BD Luer-Bel Syringe 3 mL 25 gauge x 1 syringe USE DIRECTED TO INJECT TESTOSTERONE Active BD Luer-Bel Syringe 3 mL 21 gauge x 1 09/19 syringe USE DIRECTED TO DRAW UP TESTOSTERONE Active montelukast (SINGULAIR) 10 mg tablet Take 1 tablet (10 mg total) by mouth daily Active amitriptyline (ELAVIL) 10 mg tablet Take 1 tablet (10 mg total) by mouth nightly 30 tablet 11 025 2025 Active pregabalin (LYRICA) 50 mg capsule Take 1 capsule (50 mg total) by mouth 2 (two) times a day 60 capsule 5 025 2024 Active lisinopriL (PRINIVIL,ZES TRIL) 10 mg tablet Take 1 tablet (10 mg total) by mouth daily Active gabapentin (NEURONTIN) 600 mg tablet Take 1 tablet (600 mg total) by mouth 3 (three) times a day 024 2024 Discontinued(T herapy completed) lisinopriL (PRINIVIL,ZES TRIL) 20 mg tablet Take 1 tablet (20 mg total) by mouth daily 017 2024 Discontinued Active Problems Problem Noted Date Diagnosed Date Lumbar radiculopathy 06/18/2024 Encounters Date Type Department Care Team Description 04/16/2025 2:15 PM CDT - 04/16/2025 11:59 PM CDT Hospital Encounter [facility] [place] [facility] Medicine [address] [place] [address] Cornelia Garcia NP Lumbar radiculopathy (Primary Dx); Osteoarthritis of spine with radiculopathy, lumbar region; Spondylosis of cervical spine Discharge Disposition: Discharge to home or self care from Last 3 Months Surgical History Surgery Date Site/Laterality Comments VENTRAL HERNIA REPAIR LYMPH NODE DISSECTION HAND SURGERY Left Medical History Medical History Date Comments Hypertension Asthma Anxiety Low back pain GERD (gastroesophageal reflux disease) Chronic pain disorder Family History * Patient is adopted Medical History Relation Name Comments No Known Problems Father No Known Problems Mother Relation Name Status Comments Father Mother Social History Tobacco Use Types Packs/Day Years Used Date Smoking Tobacco: Former Cigarettes 1 10.6 0 09/18/2014 - 09/18/2009 Vaping Tobacco Cessation:Counseling Given: Yes Comments:Vaping occasionally AUDIT-C Answer Date Recorded Q1: How often do you have a drink containing alcohol? Never 04/16/2025 Q2: How many drinks containi ng alcohol do you have on a typical day when you are drinking? Patient does not drink Q3: How often do you have si x or more drinks on one occasion? Never 04/16/2025 Hunger Vital Sign Answer Date Recorded Within the past 12 months, y ou worried that your food would run out before you got the money to buy more. Never true 04/16/20 25 Within the past 12 months, t he food you bought just didn't last and you didn't have money to get more. 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 Gender Identity Male 06/13/2024 11:33 AM CDT Sexual Orientation Straight 06/13/2024 11 :33 AM CDT Obstetrics History Last Filed Vital Signs Vital Sign Reading Time Taken Comments Blood Pressure 137/100 04/16/2025 2:36 PM CDT Pulse 81 04/16/2025 2:36 PM CDT Temperature 36.4 C (97.5 F) 04/16/2025 2:36 PM CDT Respiratory Rate 16 04/16/2025 2:36 PM CDT Oxygen Saturation 96% 04/16/2025 2:36 PM CDT Inhaled Oxygen Concentration - - Weight 111.8 kg (246 lb 8 oz) 04/16/2025 2:36 PM CDT Height 177.8 cm (5' 10) 04/16/2025 2:36 PM CDT Body Mass Index 35.37 04/16/2025 2:36 PM CDT Plan of Treatment Health Maintenance Due Date Last Done Comments Colon Cancer Screening-Colonoscopy 1973 Depression Screening 1973 Hepatitis C Screening 1973 Prostate Cancer Screening-PSA 1973 DTaP/Tdap/Td Vaccine (1 - Tdap) 1984 Hepatitis B Screening 1991 Regular Well Visit/Exam 18-64 1991 Pneumococcal vaccine <65 (1 of 2 - PCV) 1992 Zoster Vaccine (1 of 2) 2023 Influenza Vaccine (#1) 2025 06/23/2015 Goals Goal Patient Goal Type Associated Problems Recent Progress Patient-Stated? Author CCM Chronic Pain Care Plan Chronic Care Management Improving( 2:43 PM CDT) No Tessa Mcelroy RN Note: Problem: Chronic Pain Goals: 1. Minimize further functional decline 2. Maximize quality of life 3. Control pain Strategies: - Activity/exercise program recommendation - Conservative stepwise pain medicine strategy with multi-disciplinary approach - Recommend healthy lifestyle strategies and compensatory methods as needed Insurance [facility] Care Teams Mushroom Sorter Grader Relationship Specialty Start Date End Date Terry Esteves NP [address] [place] [address] PCP - General Family Medicine 03/19/24
== END 2025-05-05 08:50 | disposition home or self-care (01) ==
PROVIDERS: Visit Provider Plastic Surgery
DX: M18.0 Bilateral primary osteoarthritis of first carpometacarpal joints (principal)
CPT/HCPCS: 73130

== ENCOUNTER 2025-06-06 09:15 | Outpatient (RCR) | payer OTHER, SELFPAY ==
--- NOTE | 2025-05-22 12:42 | OTOPEVAL1 ---
Assessment and note entered by ERLINDA Irving/Regine, CHT Evaluation Information Assessment Status Evaluation Diagnosis M18.0 Bilateral primary OA of first CMC joints Subjective Information Patient is ~5 months following left thumb basal joint arthroplasty. He completed ~2.5 months of therapy post op (discharged in March with HEP). He reports over the past 2 months he reports a decline in hand function and increase in pain and swelling. He returns today with new orders to continue therapy. He reports decline in his ability to use his left hand to hold a roger handle, gripping items, and especially pinching items. He reports severe pain with any resistive forces through the thumb. Reported Pain Level Pain Score 3: Self Report Additional Pain Score Comments Patient reports pain increases 9/10 if the hand/ thumb is unexpectedly jammed or bumped. Patient reports that with pain medication his pain can get to 1-2/10. On a regular basis the thumb remains 3/10 at rest. Assessment OT Clinical Summary Patient referred to OT with left thumb pain and swelling. History includes left thumb CMC arthroplasty about 5 months ago. He presents with pain, edema, and weakness limiting return of functional use for ADLs and work tasks. Skilled OT indicated to maximize functional use of his left hand via modalities, manual therapy, functional strengthening, HEP instruction, k-taping, splinting, and HEP instruction/progression. Plan of Care Interventions Therapeutic Exercise,Manual Therapy,Therapeutic Activities,Hot Pack/Cold Pack,Check Out for Orthotic/Prosthetic,Ultrasound,Paraffin OT Services Indicated Yes Treatment Frequency and 2x/week for 8 visits Duration These treatments will address the objective and functional deficits as defined above. The patient will be advanced safely and appropriately in order for the patient to progress towards his/her prior level of function. Additional exercises will be introduced and as well as a comprehensive home exercise program upon discharge, if needed, ?to ensure carryover of functional gains achieved in the clinic. This treatment plan has been reviewed and agreement upon by the patient.
--- NOTE | 2025-05-22 12:42 | OPREHPOC ---
Outpatient Therapy Plan of Care This is a Multidisciplinary Plan of Care that may contain components documented by all disciplines (PT, OT, and ST.) OT Problem 1 OT Problem #1 Knowledge Deficit OT Goal 1 Goal / Goal Update 1. Patient to be independent with instructed materials. Target Visit 8 OT Problem 2 OT Problem #2 Pain OT Goal 1 Goal / Goal Update 1. Patient to report reduced pain in the left hand , reporting 4/10 pain or less at worst with ADLs . Target Visit 8 OT Problem 3 OT Problem #3 Impaired Strength OT Goal 1 Goal / Goal Update Patient to be able to progress functional strength and strengthening tolerance to facilitate improved left hand and thumb use for ADLs as measured by: 1. progressing left clip on sunglasses inspector strength to 40 lbs. 2. being able to tolerate light clip on sunglasses inspector and pinch strengthening with yellow putty without pain 3. being able to complete ADLs such as washing dishes and pots/pans without pain Target Visit 8
--- NOTE | 2025-06-30 08:35 | OTOPDC ---
Assessment and note entered by Jeison Child, OTR/L, CHT OT D/C Notification 06/30/25 OT Clinical Summary Patient called to cancel all therapy visits, stating, per MD recommendation. The patient attended the initial evaluation and 3 follow up sessions. D/C OT per patient request.
== END 2025-06-30 10:46 | disposition home or self-care (01) ==
LOC: ANHOT 09:15
PROVIDERS: Visit Provider Plastic Surgery
DX: M18.0 Bilateral primary osteoarthritis of first carpometacarpal joints (principal)
CPT/HCPCS: 97018; 97035; 97110; 97140; 97165

== ENCOUNTER 2025-06-17 09:04 | Outpatient (CLI) | payer OTHER, SELFPAY ==
--- NOTE | ~2025-06-17 | CT_ITS ---
EXAMINATION: CT UE LT wo con DATE: 06/17/2025 09:28 INDICATION: Primary osteoarthritis at the left first carpometacarpal joint TECHNIQUE: High resolution computed tomography (CT) of the left hand and forearm was performed without intravenous contrast. Additional sagittal and coronal reconstructions were performed. Automated exposure control and iterative reconstruction technique were employed. The dose-length product was 734.47 mGy-cm. COMPARISON: Left hand radiographs dated 05/05/2025 FINDINGS: Again seen are postoperative change of prior first carpal metacarpal suspension arthroplasty with resection of the trapezium and metallic buttons and lucent tunnels at the base of the first and second metacarpals consistent with likely tightrope type fixation. There are residual tiny bone fragments at the trapezial resection bed. Alignment of the remaining bones is normal. No fracture. Mild polyarticular osteoarthritis at the first metacarpophalangeal and multiple interphalangeal joints. There appear to be small erosions along the proximal articular surface of the base of the first metacarpal. Additional small erosion suggested at the radial side of the base of the second proximal phalanx. Soft ti ssues at the left hand and forearm appear unremarkable. IMPRESSION: 1. Postoperative change of first carpal metacarpal suspension arthroplasty with trapezial resection and tightrope type fixation between the base of the first and second metacarpals. 2. Polyarticular osteoarthritis at the first metacarpophalangeal and multiple interphalangeal joints. 3. Erosions at the base of the first metacarpal at the radial base of the second proximal phalanx which raises the possibility of underlying inflammatory arthritis. Reviewed, dictated and finalized at location A. IMPRESSION: 1. Postoperative change of first carpal metacarpal suspension arthroplasty with trapezial resection and tightrope type fixation between the base of the first and second metacarpals. 2. Polyarticular osteoarthritis at the first metacarpophalangeal and multiple i nterphalangeal joints. 3. Erosions at the base of the first metacarpal at the radial base of the secon d proximal phalanx which raises the possibility of underlying inflammatory arth ritis.
--- OUTSIDE RECORDS SUMMARY | 2025-06-17 09:33 | XMS_ITS | Encounter Summary ---
Author Organization [facility] Healthcare Address [address] [place] [address] Care Team Providers Care Paving Crew Foreman Name Role Phone Terry Esteves NP Primary Care Provider [phone] Reason for Visit * Reason Onset Date Comments PMC Preprocedure 05/09/2025 Encounter Details Date Type Department Care Team (Late st Contact Info) Description 05/09/2025 Telephone [facility] at the [place] [facility] [address] [facility] Advanced [facility] [address] [place] [address] Emily Gomez MD [address] [place] [address] 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 Author CCM Chronic Pain Care Plan Chronic Care Management Worsening( 10:10 AM CDT) No Tessa Mcelroy, RN Note: Problem: Chronic Pain Goals: 1. Minimize further functional decline 2. Maximize quality of life 3. Control pain Strategies: - Activity/exercise program recommendation - Conservative stepwise pain medicine strategy with multi-disciplinary approach - Recommend healthy lifestyle strategies and compensatory methods as needed documented as of this encounter Visit Diagnoses Not on filedocumented in this encounter Care Teams Paving Crew Foreman Relationship Specialty Start Date End Date Terry Esteves NP [address] [place] [address] [place] [address] PCP - General Family Medicine 03/19/24 documented as of this encounter
--- OUTSIDE RECORDS SUMMARY | 2025-06-17 09:33 | XMS_ITS | Encounter Summary ---
Author Organization [facility] Healthcare Address [address] [place] [address] Care Team Providers Care Internal Corrosion Specialist Name Role Phone Terry Esteves NP Primary Care Provider [phone] Reason for Visit * Reason Onset Date Comments Pre Procedure 06/16/2025 Encounter Details Date Type Department Care Team ([facility] st Contact Info) Description 06/16/[address] 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 Author CCM Chronic Pain Care Plan Chronic Care Management Worsening( 10:10 AM CDT) No Tessa Mcelroy RN Note: Problem: Chronic Pain Goals: 1. Minimize further functional decline 2. Maximize quality of life 3. Control pain Strategies: - Activity/exercise program recommendation - Conservative stepwise pain medicine strategy with multi-disciplinary approach - Recommend healthy lifestyle strategies and compensatory methods as needed documented as of this encounter Visit Diagnoses Not on filedocumented in this encounter Care Teams Internal Corrosion Specialist Relationship Specialty Start Date End Date Terry Esteves NP [address] [place] [address] [place] [address] PCP - General Family Medicine 03/19/24 documented as of this encounter
--- OUTSIDE RECORDS SUMMARY | 2025-06-17 09:33 | XMS_ITS | Clinical Summary ---
Author Organization [facility] Address [address] [place] [address] Care Team Providers Care Tire Buster Name Role Phone None, Provider MD Primary [...] 6:33 PM CDT Height 177.8 cm (5' 10) 02/06/2024 6:33 PM CDT Body Mass Index [...] (1 of 2) 2023 COVID-19 Vaccine (1 2023-2 5 season) 2025 Meningococcal B Vaccine Aged Out No l onger eligible based on patient's age to complete this topic Meningococcal Vaccine Aged Out No wilfredo charly eligible based on patient's age to complete this topic RSV Immunizations Under 20 Months Aged Out No longer eligible based on patient's age to complete this topic Insurance Care Teams Tire Buster Relationship Specialty Start Date End Date None, Provider, MD PCP - General UNKNOWN PHYSICIAN SPECIALTY 02/06/24
--- OUTSIDE RECORDS SUMMARY | 2025-06-17 09:33 | XMS_ITS | Clinical Summary ---
Author Organization [facility] Address [address] [place] [address] Care Team Providers Care Ice Cream Maker Name Role Phone Terry Esteves NP Primary Care Provider [phone] Allergies Active Allergy Reactions Criticality Noted Date [...] DAYS AT A TIME 03/06/20 24 Active loratadine (CLARITIN) 10 mg tablet Take [...] 30 tablet 11 12/12/19 25 026 Active lisinopriL (PRINIVIL,ZEST RIL) 10 mg tablet Take 1 tablet (10 mg total) by mouth daily Active ergocalciferol (VITAMIN D) 50,000 unit capsule Take 1,250 mcg by mouth 03/30/20 22 Active escitalopram (Lexapro) 20 mg tablet Take 1 tablet (20 mg total) by mouth 03/30/20 22 Active pregabalin (LYRICA) 50 mg capsule Take 2 capsules (100 mg total) by mouth 2 (two) times a day 180 capsule 5 05/16/20 25 026 Active Active Problems Problem Noted Date Diagnosed Date Lumbar radiculopathy 06/18/2024 Encounters Date Type Department Care Team Description 06/16/2025 Telephone [facility] at the [place] for Advanced [address] Advanced [facility] [address] [place] [address] Emily Gomez MD Pre Procedure 05/16/2025 9:56 AM CDT - 05/16/2025 11:59 PM CDT Hospital Encounter [facility] at the [address] [place] [address] Emily Gomez MD Arthropathy of cervical facet joint (Primary Dx); Lumbar radiculopathy Discharge Disposition: Discharge to home or self care 05/09/2025 Telephone [facility] [address] [facility] [address] [place] [address] Emily Gomez MD PMC Preprocedure 04/16/2025 2:15 PM CDT - 04/16/2025 11:59 PM CDT Hospital Encounter [facility] at the [facility] [address] [facility] [address] [place] [address] Cornelia Wallace NP Lumbar radiculopathy (Primary Dx); Osteoarthritis of [...] 1 10.7 0 09/18/2014 - 09/18/2009 Vaping Tobacco Cessation:Counseling Given: Not Answered Comments:Vaping occasionally AUDIT-C Answer Date Recorded Q1: [...] on file 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 Minimize further functional decline 2. Maximize quality of life 3. Control pain Strategies: - Activity/exercise program recommendation - Conservative stepwise pain medicine strategy with multi-disciplinary approach - Recommend healthy lifestyle strategies and compensatory methods as needed Procedures Procedure Name Priority Date/Time Associated Diagnosis Comments PAIN MGMT IMAGING LUMBAR/CAUDAL EPIDURAL STEROID INJ Schedule Routine, Read Routine (OP Routine) 05/16/2025 10:59 AM CDT Lumbar radiculopathy from Last 3 Months Results * Imaging Lumbar/Caudal Epidural Steroid INJ ([id number]) (05/16/2025 10:59 AM CDT) Narrative RAD_PACS_[facility] - 05/16/2025 10:59 AM CDT The images from this study are not interpreted by Radiology. Please refer to the physician's procedure / OR operative note. us Cornelia Wallace CRUSHER AND BLENDER OPERATOR IMG PAIN MGMT PROCEDURE S Final Result RAD_PACS_[facility] from Last 3 Months Insurance [facility] Care Teams Ice Cream Maker Relationship Specialty Start Date End Date Terry Esteves NP [address] [place] [address] [place] [address] PCP - General Family Medicine 03/19/24
--- OUTSIDE RECORDS SUMMARY | 2025-06-17 09:33 | XMS_ITS | Encounter Summary ---
Author Organization [facility] Address [address] [place] [address] Phone Care Team Providers Care Healthcare Network Consultant Name Role Phone Earlene Garcia MD Primary Care Provider + Reason for Visit * Reason Comments Medication Refill Encounter Details Date Type Department Care Team (Late st Contact Info) Description 02/23/2021 Refill [facility] - Neurology - [place] [address] [place] [id number] Hector Munguia MD [address] [place] [address] Medication Refill Social History Tobacco Use Types Packs/Day Years Used Date Smoking Tobacco: Former Cigarettes 1.5 15 0 02/15/1997 - 02/16/2012 Smokeless Tobacco: Former Alcohol Use Standard Drinks/Week Comments No 0 (1 standard drink = 0.6 oz pur e alcohol) Sex and Gender Information Value Date Recorded Sex Assigned at Not on file 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
--- OUTSIDE RECORDS SUMMARY | 2025-06-17 09:33 | XMS_ITS | Clinical Summary ---
Author Organization [facility] Address [address] [place] [address] Care Team Providers Care Open Hearth Furnace Laborer Name Role Phone Earlene Garcia MD Primary Care Provider [phone] Source Comments [facility],non-owned Affiliates and Associated Physician Practices is amultiple site organization consisting of ambulatory clinics and hospital sitesin [place], [place], [place] and [place]. This disclosure is being madepursuant to the Care Everywhere program and may not contain all information available regarding this patient. Last updated 18.[facility] Allergies Active Allergy Reactions Criticality Noted Date [...] Active vitamin D, ergocalciferol, (DRISDOL) 1.25 MG (70242 UT) capsule 08/07/2021 Active escitalopram (LEXAPRO) 20 [...] Comments Blood Pressure 118/81 08/11/2021 9:50 AM CLOTHING CUTTER Pulse 107 08/11/2021 9:50 AM CLOTHING CUTTER Temperature 36.8 C (98.2 F) 08/11/2021 9:50 AM CLOTHING CUTTER Respiratory Rate 16 05/22/2018 9:16 AM CDT Oxygen Saturation 95% 08/11/2021 9:50 AM CLOTHING CUTTER Inhaled Oxygen Concentration - - Weight 102.1 kg (225 lb) 08/11/2021 9:50 AM CLOTHING CUTTER Height 177.8 cm (5' 10) 08/11/2021 9:50 AM CLOTHING CUTTER Body Mass Index 32.28 08/11/2021 9:50 AM CLOTHING CUTTER Plan of Treatment Health Maintenance Due Date [...] 2023 ZOSTER VACCINE (1 of 2) 2023 DEPRESSION SCREENING 09/18/2024 COVID-19 VACCINE (1 - 2023-2 5 season) 2025 HIB VACCINE Aged Out No longer eligi [...] to complete this topic Insurance [facility] Care Teams Open Hearth Furnace Laborer Relationship Specialty Start Date End Date Earlene Garcia MD [address] [place] [address] [place] [address] PCP - General 10/17/16
--- OUTSIDE RECORDS SUMMARY | 2025-06-17 09:33 | XMS_ITS | Clinical Summary ---
Author Organization [facility] Address [address] 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
== END 2025-06-17 09:05 | disposition home or self-care (01) ==
PROVIDERS: Visit Provider Plastic Surgery
DX: M15.4 Erosive (osteo)arthritis (principal); Z96.691 Finger-joint replacement of right hand; Z98.1 Arthrodesis status
CPT/HCPCS: 73200

== ENCOUNTER 2025-07-17 05:58 | Day surgery (SDC) | payer OTHER, SELFPAY ==
[2025-06-12 08:46] VITALS: BMI 35.9
--- NOTE | ~2025-07-17 | XR_ITS ---
EXAMINATION: XR surgery orthopedic INDICATION: REVISION BASAL JT ARTHROPLASTY W/ HARDWARE REMOVAL, LT THUMB . COMPARISON: None TECHNIQUE: 2 fluoroscopic images of the left thumb were obtained during hardware removal and arthroplasty. Fluoroscopy exposure time was 35 seconds. Air Kerma 0.2130 mGy. DAP 3.5781 mGym2. FINDINGS/IMPRESSION: No radiologist was present or involved at the time of the procedure. Static images were submitted for interpretation. Metallic devices are seen to project over the proximal metacarpal region. One image shows what is probably a K wire. Fluoroscopic documentation of left thumb surgery. Please refer to the operative note for complete procedural details. Reviewed, dictated and finalized at location A.
[2025-07-17 06:20] VITALS: BP 120/88; PULSE 88; RESP 16; TEMP 36.4; O2SAT 97
[2025-07-17] MEDS: ACETAMINOPHEN 500 MG TABLET 1000 MG PO (06:27)
[2025-07-17 06:31] VITALS: BMI 34.3
--- NOTE | 2025-07-17 07:03 | P.OP_ITS ---
Procedure Note - Detailed Date of Procedure 07/17/25 Pre-op Diagnosis Osteoarthritis left First Carpometacarpal Joint Post-op Diagnosis Same Procedure Performed removal left thumb hardware and revisiion left basal joint arthroplasty Surgeon Shelbie Trinidad MD Technical Maintenance Technician Meeta Marshall PA-C Anesthesia MAC Description of Procedure INFORMED CONSENT: The patient was seen and examined and marked in the pre-op area.? The patient signed the consent form. PROCEDURE IN DETAIL:The patient taken back to OR on the stretcher in supine position. Time out performed with anesthesia, surgeon and staff agreeing on patient's name site and surgery to be performed SCDs were placed on the lower extremities and inflated. A tourniquet was placed on {left} upper extremity and antibiotics given IV After anesthesia administered sedation I injected {8}cc 1%lido with epi and 0.5% marcaine plain at the operative sites The?{left upper extremity}?was prepped and draped in sterile fashion the??{left upper extremity} was? exsanguinated with Esmarch bandage and tourniquet inflated to 250mmHg I proceeded with making a longitudinal incision over the left radial thumb incision through skin and dermis with 15 blade scalpel. Littler scissors were used to spread through subcutaneous tissue and reflecting thenar musculature down to periosteum. Periosteum was incised and reflected revealing the previously placed button and suture. I cut this looped portion of suture and removed the button. Next I took my attention to the dorsum of the 2nd metacarpal where I made an incision through the patient's previous incision through skin and dermis with 15 blade scalpel. Littler scissors were used to spread down to periosteum. Periosteum was incised with 15 blade scalpel and reflected with [place] elevator. I identified the remaining half of the previously placed mini tight rope which was removed including the button and residual suture. Mini C-arm fluoroscopy was used to visualize the joint space and verify hardware removal. There was still good mobility in the joint space and ability to distract the thumb. I then proceeded with placing a new double gauged K-wire in a radial to ulnar fashion using the mini C ring guide and verifying wire placement on fluoroscopy. The new mini tight rope was placed in standard fashion. After provisionally tightening the button on the 2nd metacarpal live fluoroscopy was used noticing good distraction of the joint space with minimal subsidence on axial load and no impingement on thumb circumduction. The button was further tightened down. I irrigated with normal saline. Next I took my attention to the painful dorsal scar where I made an elliptical incision around this painful scar through skin and dermis with 15 blade scalpel. Littler scissors were used to spread through subcutaneous tissue to elevate skin flaps in the area of patient's sensitivity no residual suture or significant scar tissue was identified I irrigated with normal saline. Closure was done with 3-0 Vicryl to close periosteum of the 2nd metacarpal and repair the thenar musculature as well as dermis. 4-0 nylon was used for skin closure. A dressing of xeroform, 4x4, jesus, and a thumb spica splint was applied for patient safety, security, and comfort and secured with an jean carlos bandage after the tourniquet was let down noting the hand was warm and well perfused. The patient was then awaken from anesthesia and transferred to the recovery room in stable condition.? Complications - none EBL- 0cc Disposition - home in stable condition Meeta Marshall PA-C was essential for positioning, retraction, closure and dressing placement. [facility] Billing Surgery - Charge Forward: Surgery Billing ([id number] same for Meeta adding )
--- NOTE | 2025-07-17 07:03 | PM.HPGS ---
History of Present Illness History of Present Illness Chief complaint: Osteoarthritis First Carpometacarpal Joint Narrative: Patient seen and examined in pre-operative holding area. No interval change in medical history or symptoms. Patient recalls previous discussion of benefits and alternatives to procedure. Continues to desire to proceed with left thumb hardware removal and revision basal joint arthroplasty with mini-tightrope. Reviewed procedure, post-op expectations and risks including but not limited to bleeding, infection, injury to tendon/nerve/vessel, decreased hand function, stiffness, RSD, no change or worsening of symptoms, hardware complication. I discussed the possible use of assistants and their participation in the case. Patient stated understanding and signed the consent form wishing to proceed. Review of Systems Review of Systems: All systems reviewed & are unremarkable except as noted in HPI and below PMFSH Past Medical History Medical History Asthma Chronic pain GERD (gastroesophageal reflux disease) HTN (hypertension) Social History Social History Smoking status: Never smoker Alcohol intake: never Substance use type: marijuana Last use: 06-07-25 Living arrangements: with family Spiritual care concerns: No Meds Home Medications and Allergies Home Medications ?Medication ?Instructions ?Recorded ?Confirmed ?Type escitalopram oxalate 20 mg tablet 20 mg PO DAILY 03/30/22 07/17/25 History loratadine 10 mg tablet 10 mg PO HS 03/30/22 07/17/25 History meloxicam 15 mg tablet 15 mg PO DAILY 03/30/22 07/17/25 History mometasone-formoterol HFA 100 1 inh inhalation DAILY 03/30/22 07/17/25 History mcg-5 mcg/actuation aerosol inhaler (Dulera) montelukast 10 mg tablet 10 mg PO DAILY 03/30/22 07/17/25 History sucralfate 1 gram tablet 1 g PO DAILY 03/30/22 07/17/25 History triamcinolone acetonide 0.1 % 1 applic topical DAILY 03/30/22 07/17/25 History topical ointment amitriptyline 10 mg tablet 10 mg PO DAILY PRN insomnia 12/17/24 07/17/25 History clobetasol 0.05 % topical ointment 1 applic topical DAILY 12/17/24 07/17/25 History pantoprazole 40 mg tablet,delayed 40 mg PO DAILY 12/17/24 07/17/25 History release lisinopril 20 mg tablet 20 mg PO DAILY 12/18/24 07/17/25 History pregabalin 100 mg capsule 100 mg PO BID 07/07/25 07/17/25 History Allergies Allergy/AdvReac Type Severity Reaction Status Date / Time No Known Allergies Allergy Verified 07/17/25 06:52 Vital Signs Vital Signs - 24 hr 07/17/25 06:20 Temperature 36.4 C L Pulse Rate 88 Respiratory Rate 16 Blood Pressure 120/88 Pulse Oximetry 97 Oxygen Delivery Room Air Exam Narrative: unchanged Assessment and Plan Assessment and plan (1) Osteoarthritis of first carpometacarpal joint, unspecified: Qualifiers: Laterality: bilateral Osteoarthritis type: primary Qualified Code(s): M18.0 - Bilateral primary osteoarthritis of first carpometacarpal joints Code(s): M18.9 - Osteoarthritis of first carpometacarpal joint, unspecified Status: Acute Assessment and Plan: cont as above
--- NOTE | 2025-07-17 07:22 | WPDANESEPPF ---
Anes - Initial Pre Proc Eval Procedure: Operation Date: 07/17/25 07:30 Proposed Procedures p Revision Left Basal Joint Arthroplasty with Hardware Removal and Tightrope Placement - Shelbie Trinidad MD Date/Time: 07/17/25 07:22 Surgeon: Shelbie Triniadd MD Pre Op Diagnosis: Osteoarthritis First Carpometacarpal Joint Patient Data Age: 49 Gender: M Height: 1.78 m Weight: 108.6 kg Last Vital Signs Temp 97.5 F L 07/17/25 06:20 Pulse 88 07/17/25 06:20 Resp 16 07/17/25 06:20 BP 120/88 07/17/25 06:20 Pulse Ox 97 07/17/25 06:20 O2 Del Method Room Air 07/17/25 06:20 Allergies Allergy/AdvReac Type Severity Reaction Status Date / Time No Known Allergies Allergy Verified 07/17/25 06:52 Home Medications ?Medication ?Instructions ?Recorded ?Confirmed ?Type escitalopram oxalate 20 mg tablet 20 mg PO DAILY 03/30/22 07/17/25 History loratadine 10 mg tablet 10 mg PO HS 03/30/22 07/17/25 History meloxicam 15 mg tablet 15 mg PO DAILY 03/30/22 07/17/25 History mometasone-formoterol HFA 100 1 inh inhalation DAILY 03/30/22 07/17/25 History mcg-5 mcg/actuation aerosol inhaler (Dulera) montelukast 10 mg tablet 10 mg PO DAILY 03/30/22 07/17/25 History sucralfate 1 gram tablet 1 g PO DAILY 03/30/22 07/17/25 History triamcinolone acetonide 0.1 % 1 applic topical DAILY 03/30/22 07/17/25 History topical ointment amitriptyline 10 mg tablet 10 mg PO DAILY PRN insomnia 12/17/24 07/17/25 History clobetasol 0.05 % topical ointment 1 applic topical DAILY 12/17/24 07/17/25 History pantoprazole 40 mg tablet,delayed 40 mg PO DAILY 12/17/24 07/17/25 History release lisinopril 20 mg tablet 20 mg PO DAILY 12/18/24 07/17/25 History pregabalin 100 mg capsule 100 mg PO BID 07/07/25 07/17/25 History Patient hx anesthesia problems: none Family hx anesthesia problems: none Results Review: All pre-operative results and documents have been reviewed as part of the pre-operative evaluation. [facility] Past Medical History Medical History Asthma Chronic pain GERD (gastroesophageal reflux disease) HTN (hypertension) Social History Social History Smoking status: Never smoker Alcohol intake: never Substance use type: marijuana Last use: 06-07-25 Living arrangements: with family Spiritual care concerns: No Anes - Eval Final PreProcedure Day of Procedure 07/17/25 07:22 Patient weight: obese Heart: regular rate and rhythm Lungs: clear to auscultation and normal air movement Airway: Mallampati scale Neurological: alert and oriented Last oral intake: >/= 8 hours ASA classification: II Emergent: no Anesthetic plan: proceed Anesthesia type and monitoring: general GIVS Results Review: All pre-operative results and documents have been reviewed as part of the pre-operative evaluation. Informed Consent: The patient's anesthetic plan and its attendant risks and benefits were discussed with the patient/family/POA. Questions were solicited and answers provided to the satisfaction of the patient/family/POA.
[2025-07-17] MEDS: LACTATED RINGERS 1,000 ML 30 ML IV CONT (07:31)
[2025-07-17] MEDS: ceFAZolin 2 GM in SODIUM CHLORIDE 0.9% IV 50 ML 100 ML IVPB (07:32)
[2025-07-17] MEDS: LIDO 1%/EPINEPHRINE 1:100,000 20 ML VIAL (07:59)
[2025-07-17] MEDS: BUPivacaine HCL 0.5% 10 ML AMP (08:00)
[2025-07-17 08:48] VITALS: BP 129/98; PULSE 95; RESP 18; O2SAT 94
[2025-07-17 08:58] VITALS: BP 135/107; PULSE 83; RESP 18; O2SAT 96
--- NOTE | 2025-07-17 09:04 | WPDANESPN ---
Anes - Prog Note Post-Op Date/Time: 07/17/25 09:04 Cardiovascular status: normal Respiratory status: normal Airway patency: baseline Mental status: baseline Post-Op hydration status: normal Vital Signs: Last Vital Signs Temp 97.5 F L 07/17/25 06:20 Pulse 83 07/17/25 08:58 Resp 18 07/17/25 08:58 BP 135/107 H 07/17/25 08:58 Pulse Ox 96 07/17/25 08:58 O2 Del Method Room Air 07/17/25 08:58 Pain Score (VAS): 0 I/O: Intake & Output 07/16/25 07/17/25 07/17/25 23:59 07:59 15:59 Intake Total 50 0 Balance 50 0 Post-procedural complaints: none Patient Feedback: Patient satisfied with anesthetic care.
[2025-07-17 09:08] VITALS: BP 133/95; PULSE 77; RESP 18; O2SAT 100
[2025-07-17] MEDS: oxyCODONE HCL (*CRX) 5 MG TAB IR PO (09:13)
== END 2025-07-17 09:30 | disposition home or self-care (01) ==
PROVIDERS: Visit Provider Plastic Surgery
PROC: (CPT 25447; principal; 2025-07-17 07:30)
DX: M18.12 Unilateral primary osteoarthritis of first carpometacarpal joint, left hand (principal)
CPT/HCPCS: 25447; 20680; 99199; C1713

== ENCOUNTER 2025-07-17 08:08 | Outpatient (NON) | payer OTHER, SELFPAY ==
--- NOTE | 2025-07-17 | S_PTH ---
PATIENT: Adam Saunders LOC: [facility]#:[id number] AGE/SX: 49/M ROOM: RE07/17/[address]: Shelbie Trinidad MD : 1975 BED: DIS: 07/17/2025 SPEC #: [id number] RECD: 07/18/25 08:37 STATUS: KINSEY REQ #: [id number] MAGGIE: 07/17/25 00:[address]: Shelbie Trinidad DEPT: [facility] Surgical RECD BY: Maureen Wright ENTERED: 07/18/25 08:39 SP TYPE: Surgical OTHR DR: UNKNOWN,DOCTOR Tissues: A - Hardware Procedures: Gross Exam Level 1
--- OUTSIDE RECORDS SUMMARY | 2025-07-18 08:25 | XMS_ITS | Clinical Summary ---
Author Organization [facility] Address [address] [place] [address] Care Team Providers Care Station Air Traffic Control Specialist Name Role Phone Earlene Garcia MD Primary Care Provider [phone] Source Comments [facility],non-owned Affiliates and Associated Physician Practices is amultiple site organization consisting of ambulatory clinics and hospital sitesin [place], [place], [place] and [place]. This disclosure is being madepursuant to the Care Everywhere program and may not contain all information available regarding this patient. Last updated 18.[facility] Allergies Active Allergy Reactions Criticality Noted [...] Active vitamin D, ergocalciferol, (DRISDOL) 1.25 MG (07126 UT) capsule 08/07/2021 Active escitalopram (LEXAPRO) 20 [...] Comments Blood Pressure 118/81 08/11/2021 9:50 AM SOLUTIONS MANAGER Pulse 107 08/11/2021 9:50 AM SOLUTIONS MANAGER Temperature 36.8 C (98.2 F) 08/11/2021 9:50 AM SOLUTIONS MANAGER Respiratory Rate 16 05/22/2018 9:16 AM CDT Oxygen Saturation 95% 08/11/2021 9:50 AM SOLUTIONS MANAGER Inhaled Oxygen Concentration - - Weight 102.1 kg (225 lb) 08/11/2021 9:50 AM SOLUTIONS MANAGER Height 177.8 cm (5' 10) 08/11/2021 9:50 AM SOLUTIONS MANAGER Body Mass Index 32.28 08/11/2021 9:50 AM SOLUTIONS MANAGER Plan of Treatment Health Maintenance Due Date Last Done Comments COLOGUARD (AGES 45-75) - COL ON CA SCREENING 1973 COLON MONITORING 1973 COLONOSCOPY - COLON CA SCREENING 1973 CT COLONOGRAPHY - COLON CA SCREENING 1973 Colorectal Cancer Screening 1973 FIT - COLON CA SCREENING 1973 FLEX SIG - COLON CA SCREENING 1973 LIPID TESTING 1973 HIV SCREENING 1988 HEPATITIS C SCREENING 10/16/1991 DTAP/TDAP/TD VACCINES (1 - Tdap) 1992 HEPATITIS B VACCINE (1 of 3 - 19+ 3-dose series) 1992 SCREENING FOR DIABETES 08/11/2021 PNEUMOCOCCAL VACCINE 50+ (1 of 1 - [...] patient's age to complete this topic Insurance [facility] Care Teams Station Air Traffic Control Specialist Relationship Specialty Start Date End Date Earlene Garcia MD [address] [place] [address] JOE Garsia [phone] PCP - General 10/17/16
--- OUTSIDE RECORDS SUMMARY | 2025-07-18 08:26 | XMS_ITS | Clinical Summary ---
Author Organization [facility] Address [address] [place] [address] Care Team Providers Care Medical Transcription Editor Name Role Phone None, Provider MD Primary [...] 8:55 PM CDT Oxygen Saturation 98% 02/06/2024 8: 55 PM CDT Inhaled Oxygen Concentration - - [...] of 2) 2023 COVID-19 Vaccine (1 - 2024-2 6 season) 2025 Influenza Adult (#1) 2025 06/23/2015 Hepatitis A Vaccines Aged Out No long er eligible based on patient's age to complete this topic Meningococcal B Vaccine Aged Out No l onger eligible based on patient's age to complete this topic Meningococcal Vaccine Aged Out No wilfredo charly eligible based on patient's age to complete this topic RSV Immunizations Under 20 Months Aged Out No longer eligible based on patient's age to complete this topic Insurance [employer] Care Teams Medical Transcription Editor Relationship Specialty Start Date End Date None, Provider, MD PCP - General UNKNOWN PHYSICIAN SPECIALTY 02/06/24
--- OUTSIDE RECORDS SUMMARY | 2025-07-18 08:26 | XMS_ITS | Clinical Summary ---
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
--- OUTSIDE RECORDS SUMMARY | 2025-07-18 08:26 | XMS_ITS | Encounter Summary ---
Author Organization [facility] Address [address] [place] [address] Care Team Providers Care Wood Form Builder Name Role Phone Terry Esteves NP Primary Care Provider [phone] Reason for Visit * Reason Onset Date Comments PMC Preprocedure 05/09/2025 Encounter Details Date Type Department Care Team (Late st Contact Info) Description 05/09/[address] 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 Author CCM Chronic Pain Care Plan Chronic Care Management Worsening( 8:10 AM CDT) No Tessa Mcelroy, RN Note: Problem: Chronic Pain Goals: 1. Minimize further functional decline 2. Maximize quality of life 3. Control pain Strategies: - Activity/exercise program recommendation - Conservative stepwise pain medicine strategy with multi-disciplinary approach - Recommend healthy lifestyle strategies and compensatory methods as needed documented as of this encounter Visit Diagnoses Not on filedocumented in this encounter Care Teams Wood Form Builder Relationship Specialty Start Date End Date Terry Esteves NP [address] [place] [address] [place] [address] PCP - General Family Medicine 03/19/24 documented as of this encounter
--- OUTSIDE RECORDS SUMMARY | 2025-07-18 08:26 | XMS_ITS | Encounter Summary ---
Author Organization [facility] Address [address] [place] [address] Phone Care Team Providers Care Office Equipment Mechanic Name Role Phone Earlene Garcia MD Primary Care Provider + Reason for Visit * Reason Comments Medication Refill Encounter Details Date Type Department Care Team (Late st Contact Info) Description 02/23/2021 Refill [facility] - Neurology - [address] [place] [phone] Hector Munguia MD [address] [place] [address] Medication Refill Social History Tobacco Use Types Packs/Day Years Used Date Smoking Tobacco: Former Cigarettes 1.5 15 0 02/15/1997 - 02/16/2012 Smokeless Tobacco: Former Alcohol Use Standard Drinks/Week Comments No 0 (1 standard drink = 0.6 oz pur e alcohol) Sex and Gender Information Value Date Recorded Sex Assigned at Not on file 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
--- OUTSIDE RECORDS SUMMARY | 2025-07-18 08:26 | XMS_ITS | Clinical Summary ---
Author Organization [facility] Address [address] [place] [address] Care Team Providers Care Media Assistant Name Role Phone Terry Esteves NP Primary Care Provider [phone] Allergies Active Allergy Reactions Criticality Noted Date [...] total) by mouth daily 03/06/20 24 Active BD Luer-Bel Syringe 3 mL [...] (10 mg total) by mouth daily Active escitalopram (Lexapro) 20 mg tablet Take 1 tablet (20 mg total) by mouth 03/30/20 Active pregabalin (LYRICA) 100 mg capsule Take 1 capsule (100 mg total) by mouth 2 (two) times a day 180 capsule 1 06/19/20 25 026 Active cholecalcifero l (VITAMIN D-3) 2000 unit capsule Take 1 capsule (2,000 Units total) by mouth daily 06/20/20 24 025 Discontin ued(Thera py completed ) cyanocobalamin (Vitamin B-12) 1,000 mcg tablet Take 1 tablet (1,000 mcg total) by mouth once a week 06/19/20 24 025 Discontin ued(Thera py completed ) ergocalciferol (VITAMIN D) 50,000 unit capsule Take 1,250 mcg by mouth 03/30/20 22 025 Discontin ued(Thera py completed ) pregabalin (LYRICA) 50 mg capsule Take 2 capsules (100 mg total) by mouth 2 (two) times a day 180 capsule 5 05/16/20 25 025 Discontin ued(Reord er) Active Problems Problem Noted Date Diagnosed Date Lumbar radiculopathy 06/18/2024 Encounters Date Type Department Care Team Description 06/20/2025 Telephone [facility] [place] [facility] [address] [facility] [address] [place] [address] Emily Gomez MD Post Procedure Call ; Scheduling Appointments 06/19/2025 7:38 AM CDT - 06/19/2025 11:59 PM CDT Hospital Encounter [facility] [address] [place] [address] Advanced [facility] [address] [place] [address] Emily Gomez MD Arthropathy of cervical facet joint Discharge Disposition: Discharge to home or self care 06/16/2025 Telephone [facility] [address] [place] [address] Advanced [facility] [address] [place] [address] Emily Gomez MD Pre Procedure 05/16/2025 9:56 AM CDT - 05/16/2025 11:59 PM CDT Hospital Encounter [facility] [place] [facility] [address] [facility] [address] [place] [phone] Emily Gomez MD Arthropathy of cervical facet joint (Primary Dx); Lumbar radiculopathy Discharge Disposition: Discharge to home or self care 05/09/2025 Telephone [facility] [address] [facility] [address] [place] [address] Emily Gomez MD PMC Preprocedure from Last 3 Months Surgical History [...] 1 10.8 0 09/18/2014 - 09/18/2009 Vaping Tobacco Cessation:Counseling Given: Not Answered Comments:Vaping occasionally Alcohol Use Standard Drinks/Week Comments Never 0 (1 standard drink = 0.6 oz pur e alcohol) AUDIT-C Answer Date Recorded Q1: How often do you have a drink containing alcohol? Never 06/19/2025 Q2: How many drinks containi ng alcohol do you have on a typical day when you are drinking? Patient does not drink Q3: How often do you have si x or more drinks on one occasion? Never 06/19/2025 Hunger Vital Sign Answer Date Recorded Within the past 12 months, y ou worried that your food would run out before you got the money to buy more. Never true 06/19/20 25 Within the past 12 months, t he food you bought just didn't last and you didn't have money to get more. 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 stated this is he baseline Pulse 78 06/19/2025 9:23 AM CDT Temperature 36.2 C (97.1 F) 06/19/2025 7:50 AM CDT Respiratory Rate 20 06/19/2025 9:23 AM CDT Oxygen Saturation 96% 06/19/2025 9:2 3 AM CDT Inhaled Oxygen Concentration - - Weight 108.9 kg (240 lb) 06/19/2025 7:5 0 AM CDT Height 177.8 cm (5' 10) 06/19/2025 7:5 0 AM CDT Body Mass Index 34.44 06/19/2025 7:50 AM CDT Plan of Treatment Health Maintenance Due [...] Management Worsening( 8:10 AM CDT) No Tessa Mcelroy RN Note: Problem: Chronic Pain Goals: 1. Minimize further functional decline 2. Maximize quality of life 3. Control pain Strategies: - Activity/exercise program recommendation - Conservative stepwise pain medicine strategy with multi-disciplinary approach - Recommend healthy lifestyle strategies and compensatory methods as needed Procedures Procedure Name Priority Date/Time Associated Diagnosis Comments PAIN MGMT IMAGING CERVICAL/THORACIC FACET/MEDIAL BRANCH BLOCK BILATERAL Schedule Routine, Read Routine (OP Routine) 06/19/2025 9:27 AM CDT Arthropathy of cervical facet joint PAIN MGMT IMAGING LUMBAR/CAUDAL EPIDURAL STEROID INJ Schedule Routine, Read Routine (OP Routine) 05/16/2025 10:59 AM CDT Lumbar radiculopathy from Last 3 Months Results * Imaging Cervical/Thoracic Facet Medial Branch Block Bilateral ([id number]) (06/19/2025 9:27 AM CDT) Narrative [facility] - 06/19/2025 9:27 AM CDT The images from this study are not interpreted by Radiology. Please refer to the physician's procedure / OR operative note. Emily Gomez MD IMG PAIN MGMT PROCEDURES Fi nal Result Performing Organization Address [facility]/ZIP Co de Phone Number [facility] * Imaging Lumbar/Caudal Epidural Steroid INJ ([id number]) (05/16/2025 10:59 AM CDT) Narrative [facility] - 05/16/2025 10:59 AM CDT The images from this study are not interpreted by Radiology. Please refer to the physician's procedure / OR operative note. Cornelia Wallace NP IMG PAIN MGMT PROCEDURE S Final Result Performing Organization Address [facility]/ZIP Co de Phone Number [facility] from Last 3 Months Insurance [facility] Care Teams Media Assistant Relationship Specialty Start Date End Date Terry Esteves NP [address] [place] [address] [place] [address] PCP - General Family Medicine 03/19/24
== END 2025-07-17 08:09 | disposition home or self-care (01) ==
PROVIDERS: Visit Provider Plastic Surgery
DX: Z96.698 Presence of other orthopedic joint implants (principal)
CPT/HCPCS: 88300

== ENCOUNTER 2025-07-30 09:40 | Outpatient (CLI) | payer OTHER, SELFPAY ==
--- NOTE | ~2025-07-30 | XR_ITS ---
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 COMPARISON: No comparisons available. Findings: No acute fracture or malalignment. There are moderate degenerative changes with postsurgical changes noted involving the first metacarpal carpal joint. There are moderate degenerative changes of the distal and proximal interphalangeal joints, no erosions are identified. Soft tissues unremarkable. Impression: No acute fracture or malalignment. Reviewed, dictated and finalized at location P. E UP COPY CAMERA OPERATOR Impression: No acute fracture or malalignment.
--- OUTSIDE RECORDS SUMMARY | 2025-07-30 10:39 | XMS_ITS | Clinical Summary ---
Author Organization [facility] Address [address] [place] [address] Care Team Providers Care Marketing Operations Specialist Name Role Phone Earlene Garcia MD Primary Care Provider [phone] Source Comments [facility],non-owned Affiliates and Associated Physician Practices is amultiple site organization consisting of ambulatory clinics and hospital sitesin [place], [place], [place] and [place]. This disclosure is being madepursuant to the Care Everywhere program and may not contain all information available regarding this patient. Last updated 18.[facility] Allergies Active Allergy Reactions Criticality Noted [...] Active vitamin D, ergocalciferol, (DRISDOL) 1.25 MG (81045 UT) capsule 08/07/2021 Active escitalopram (LEXAPRO) 20 [...] Years Used Date Smoking Tobacco: Former Cigarettes 0.5 Q uit: 09/18/2013 Smokeless Tobacco: Former Tobacco [...] Comments Blood Pressure 118/81 08/11/2021 9:50 AM SHEAR SETTER Pulse 107 08/11/2021 9:50 AM SHEAR SETTER Temperature 36.8 C (98.2 F) 08/11/2021 9:50 AM SHEAR SETTER Respiratory Rate 16 05/22/2018 9:16 AM CDT Oxygen Saturation 95% 08/11/2021 9:50 AM SHEAR SETTER Inhaled Oxygen Concentration - - Weight 102.1 kg (225 lb) 08/11/2021 9:50 AM SHEAR SETTER Height 177.8 cm (5' 10) 08/11/2021 9:50 AM SHEAR SETTER Body Mass Index 32.28 08/11/2021 9:50 AM SHEAR SETTER Plan of Treatment Health Maintenance Due Date [...] to complete this topic Insurance [facility] SELF PAY NO INSURANCE Member Subscriber Plan / Payer (Ef fective for All Dates) Name:Dina Saunders Member ID:Not on file Relation to Subscriber:Not on file Name:DINA SAUNDERS Subscriber ID:Not on file (Home) Address: [address] [place] [id number] Payer ID:Not on file Group ID:Not on file Type:Self Pay Address: [place], [place] [address] [place], [place] [id number] [place] [address] [address] [place] [address] [facility] Care Teams Marketing Operations Specialist Relationship Specialty Start Date End Date Earlene Garcia MD [address] [place] [address] [place] [phone] PCP - General 10/17/16
--- OUTSIDE RECORDS SUMMARY | 2025-07-30 10:39 | XMS_ITS | Clinical Summary ---
Author Organization [facility] Address [address] [place] [address] Care Team Providers Care Fuel Cell Repairer Name Role Phone None, Provider MD Primary [...] this topic Insurance [employer] Care Teams Fuel Cell Repairer Relationship Specialty Start Date End Date None, Provider, MD PCP - General UNKNOWN PHYSICIAN SPECIALTY 02/06/24
--- OUTSIDE RECORDS SUMMARY | 2025-07-30 10:39 | XMS_ITS | Clinical Summary ---
Author Organization [facility] Address [address] [place] [address] Care Team Providers Care Quality Coordinator Name Role Phone Terry Esteves NP Primary Care Provider [phone] Allergies Active Allergy Reactions Criticality Noted Date [...] by mouth 03/30/20 22 Active pregabalin (LYRICA) 100 mg capsule Take 1 capsule (100 mg total) by mouth 2 (two) times a day 180 capsule 1 06/19/20 026 Active Active Problems Problem Noted Date Diagnosed Date Lumbar radiculopathy 06/18/2024 Encounters Date Type Department Care Team Description 07/18/2025 Telephone [facility] [place] [facility] Advanced Medicine [address] [place] [address] Emily Gomez MD PMC Preprocedure (mychart) 06/20/2025 Telephone [facility] [place] [facility] [address] [place] [address] Emily Gomez MD Post Procedure Call ; Scheduling Appointments 06/19/2025 7:38 AM CDT - 06/19/2025 11:59 PM CDT Hospital Encounter [facility] [address] [place] [address] Advanced Medicine [address] [place] [address] Emily Gomez MD Arthropathy of cervical facet joint Discharge Disposition: Discharge to home or self care 06/16/2025 Telephone [facility] [address] [place] [address] Emily Gomez MD Pre Procedure 05/16/2025 9:56 AM CDT - 05/16/2025 11:59 PM CDT Hospital Encounter [facility] [address] [facility] [address] [place] [address] Emily Gomez MD Arthropathy of cervical facet joint (Primary Dx); Lumbar radiculopathy Discharge Disposition: Discharge to home or self care 05/09/2025 Telephone [facility] [address] 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 Please refer to the physician's procedure / OR operative note. us Emily Gomez MD IMG PAIN MGMT PROCEDURES Fi nal Result Performing Organization Address [facility] Co de Phone Number [facility] * Imaging Lumbar/Caudal Epidural Steroid INJ ([id number]) (05/16/2025 10:59 AM CDT) Narrative [facility] - 05/16/2025 10:59 AM CDT The images from this study are not interpreted by Radiology. Please refer to the physician's procedure / OR operative note. Cornelia Wallace NP IMG PAIN MGMT PROCEDURE S Final Result Performing Organization Address [facility] de Phone Number [facility] from Last 3 Months Insurance [facility] Care Teams Quality Coordinator Relationship Specialty Start Date End Date Terry Esteves NP [address] [place] [address] PCP - General Family Medicine 03/19/24
--- OUTSIDE RECORDS SUMMARY | 2025-07-30 10:39 | XMS_ITS | Clinical Summary ---
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 Gender Identity Not on file Sexual [...] years) (1 of 1 - PCV) 2023 Respiratory Syncytial Virus (RSV) Immunization (Adult) (1 - Risk 50-74 years 1-dose series) 2023 Zoster Immunization (1 of 2) 2023 Influenza Immunization (#1) 2025 06/23/2015 SARS-COV-2 Immunization ( season) 2025 Colonoscopy 06/06/2028 06/06/2018 Colorectal Cancer Screening 06/06/2028 Human Papillomavirus (HPV) Immunization Aged Out No longer eligible b ased on patient's age to complete this topic Meningococcal Immunization (ACWY) Aged Out No longer eligible based on patient's age to complete this topic Rotavirus Immunization Aged Out No lo nger eligible based on patient's age to complete this topic Insurance MEDICAID [employer] [place] Care Teams Office Helper Relationship Specialty Start Date End Date Earlene Garcia MD [address] [place] [id number] PCP - General Family Medicine 03/14/18
--- OUTSIDE RECORDS SUMMARY | 2025-07-30 10:39 | XMS_ITS | Encounter Summary ---
Author Organization [facility] Address [address] [place] [address] Phone Care Team Providers Care Telegraph Repeater Mechanic Name Role Phone Earlene Garcia MD Primary Care Provider + Reason for Visit * Reason Comments Medication Refill Encounter Details Date Type Department Care Team (Late st Contact Info) Description 02/23/2021 Refill [facility] - [facility]rology [facility] [address] [place] [id number] Hector Munguia MD [address] [place] [phone] Medication Refill Social History Tobacco Use Types Packs/Day Years Used Date Smoking Tobacco: Former Cigarettes 1.5 15 0 02/15/1997 - 02/16/2012 Smokeless Tobacco: Former Alcohol Use Standard Drinks/Week Comments No 0 (1 standard drink = 0.6 oz pur e alcohol) Sex and Gender Information Value Date Recorded Sex Assigned at Not on file 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
--- OUTSIDE RECORDS SUMMARY | 2025-07-30 10:39 | XMS_ITS | Encounter Summary ---
Author Organization [facility] Address [address] [place] [address] Care Team Providers Care Charting Clerk Name Role Phone Terry Esteves NP Primary Care Provider [phone] Reason for Visit * Reason Onset Date Comments PMC Preprocedure 07/18/2025 mychart Encounter Details Date Type Department Care Team ([facility] Contact Info) Description 07/18/2025 Telephone [facility] [place] [facility] [address] [facility] [address] [place] [address] Emily Gomez MD [address] [place] [address] PMC Preprocedure (mychart) Social History Tobacco Use Types Packs/Day Years Used Date Smoking Tobacco: Former Cigarettes 1 10.9 0 09/18/2014 - 09/18/2009 Vaping Comments:Vaping occasionally Alcohol Use Standard Drinks/Week Comments [...] on file 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 Gender Identity Male 06/13/2024 11:33 AM CDT Sexual Orientation Straight 06/13/2024 11 :33 AM CDT documented as of this encounter Functional Status * Number of Responses Answer Date of Assessment Author 10 07/18/2025 1:03 PM CDT Mychart, Generic Provider * Percentage Answer Date of Assessment Author 44% 07/18/2025 1:03 PM CDT Mychart, Generic Provider * Section 1: Pain Intensity Answer Date of Assessment Author 0 07/18/2025 1:03 PM CDT Mychart, Generic Provider * Section 2: Personal Care (Washing, Dressing, etc.) Answer Date of Assessment Author 1 07/18/2025 1:03 PM CDT Mychart, Generic Provider * Section 3: Lifting Answer Date of Assessment Author 2 07/18/2025 1:03 PM CDT Mychart, Generic Provider * Section 4: Reading Answer Date of Assessment Author 1 07/18/2025 1:03 PM CDT Mychart, Generic Provider * Section 5: Headaches Answer Date of Assessment Author 4 07/18/2025 1:03 PM CDT Mychart, Generic Provider * Section 6: Concentration Answer Date of Assessment Author 1 07/18/2025 1:03 PM CDT Mychart, Generic Provider * Section 7: Work Answer Date of Assessment Author 3 07/18/2025 1:03 PM CDT Mychart, Generic Provider * Section 8: Driving Answer Date of Assessment Author 3 07/18/2025 1:03 PM CDT Mychart, Generic Provider * Section 9: Sleeping Answer Date of Assessment Author 4 07/18/2025 1:03 PM CDT Mychart, Generic Provider * Section 10: Recreation Answer Date of Assessment Author 3 07/18/2025 1:03 PM CDT Mychart, Generic Provider * Neck Disability Index Raw Score Answer Date of Assessment Author 22 07/18/2025 1:03 PM CDT Mychart, Generic Provider documented as of this encounter Plan of Treatment Not on file documented as of this encounter Goals Goal Patient Goal Type Associated Problems Recent Progress Patient-Stated? Author CCM Chronic Pain Care Plan Chronic Care Management Worsening( 8:10 AM CDT) Tessa Bear, RN Note: Problem: Chronic Pain Goals: 1. Minimize further functional decline 2. Maximize quality of life 3. Control pain Strategies: - Activity/exercise program recommendation - Conservative stepwise pain medicine strategy with multi-disciplinary approach - Recommend healthy lifestyle strategies and compensatory methods as needed documented as of this encounter Visit Diagnoses Not on filedocumented in this encounter Care Teams Charting Clerk Relationship Specialty Start Date End Date Terry Esteves PROFESSOR OF BUSINESS [address] [place] [address] PCP - General Family Medicine 03/19/24 documented as of this encounter
--- OUTSIDE RECORDS SUMMARY | 2025-07-30 10:39 | XMS_ITS | Encounter Summary ---
Author Organization [facility] Healthcare Address [address] [place] [address] Care Team Providers Care Coil Builder Name Role Phone Terry Esteves NP Primary Care Provider [phone] Reason for Visit * Reason Onset Date Comments PMC Preprocedure 05/09/2025 Encounter Details Date Type Department Care Team (Late st Contact Info) Description 05/09/2025 Telephone [facility] [address] [facility] [address] [place] [address] Emily Gomez MD [address] [place] [address] [facility] Preprocedure Social History Tobacco Use Types Packs/Day [...] on file 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 Gender Identity Male 06/13/2024 11:33 AM CDT Sexual Orientation Straight 06/13/2024 11 :33 AM CDT documented as of this encounter Functional Status * Number of Responses Answer Date of Assessment Author 10 05/09/2025 10:05 AM CDT Mychart, Generic Provider * Percentage Answer Date of Assessment Author 38% 05/09/2025 10:05 AM CDT Mychart, Generic Provider * Section 1: Pain Intensity Answer Date of Assessment Author 1 05/09/2025 10:05 AM CDT Mychart, Generic Provider * Section 2: Personal Care (Washing, Dressing, etc.) Answer Date of Assessment Author 1 05/09/2025 10:05 AM CDT Mychart, Generic Provider * Section 3: Lifting Answer Date of Assessment Author 3 05/09/2025 10:05 AM CDT Mychart, Generic Provider * Section 4: Reading Answer Date of Assessment Author 1 05/09/2025 10:05 AM CDT Mychart, Generic Provider * Section 5: Headaches Answer Date of Assessment Author 2 05/09/2025 10:05 AM CDT Mychart, Generic Provider * Section 6: Concentration Answer Date of Assessment Author 1 05/09/2025 10:05 AM CDT Mychart, Generic Provider * Section 7: Work Answer Date of Assessment Author 3 05/09/2025 10:05 AM CDT Mychart, Generic Provider * Section 8: Driving Answer Date of Assessment Author 1 05/09/2025 10:05 AM CDT Mychart, Generic Provider * Section 9: Sleeping Answer Date of Assessment Author 3 05/09/2025 10:05 AM CDT Mychart, Generic Provider * Section 10: Recreation Answer Date of Assessment Author 3 05/09/2025 10:05 AM CDT Mychart, Generic Provider * Neck Disability Index Raw Score Answer Date of Assessment Author 19 05/09/2025 10:05 AM CDT Mychart, Generic Provider documented as of this encounter Plan of Treatment Not on file documented as of this encounter Goals Goal Patient Goal Type Associated Problems Recent Progress Patient-Stated? Author CCM Chronic Pain Care Plan Chronic Care Management Worsening( 8:10 AM CDT) Tessa Bear RN Note: Problem: Chronic Pain Goals: 1. Minimize further functional decline 2. Maximize quality of life 3. Control pain Strategies: - Activity/exercise program recommendation - Conservative stepwise pain medicine strategy with multi-disciplinary approach - Recommend healthy lifestyle strategies and compensatory methods as needed documented as of this encounter Visit Diagnoses Not on filedocumented in this encounter Care Teams Coil Builder Relationship Specialty Start Date End Date Terry Esteves NP [address] [place] [address] [place] [address] PCP - General Family Medicine 03/19/24 documented as of this encounter
--- OUTSIDE RECORDS SUMMARY | 2025-07-30 10:39 | XMS_ITS | Data Portability ---
Author Organization [place] [facility], Main Office Address [address] [place] [address] Care Team Providers Care Project Controls Specialist Name Role Phone AURELIANO EUBANKS ZACHARY Primary Care Provider AURELIANO EUBANKS ZACHARY Referring Provider Assessment Encounter Date Assessment Date Assessment LastModified by Organization Details LastModified Time 06/11/2024 06/11/2024 This note is dictated and transcribed by [employer]. Chef Head variances may occur. Despite proofreading, typographical errors may occur. Occasional wrong-word or 'hjbxc-w-qohu' substitutions may have occurred due to the inherent limitations of voice recording. Read the chart carefully and recognize, using context, where substitutions have occurred. Not available 06/11/2024 16:28:36 06/27/2024 06/27/2024 This note is dictated and transcribed by [employer]. Chef Head variances may occur. Despite proofreading, typographical errors may occur. Occasional wrong-word or 'hqnri-r-xrra' substitutions may have occurred due to the [...] Patient was reassured. No surgical intervention recommended [email or web address] Not available 07/18/2024 11:35:16 Plan of Treatment Reminders Order Date Submit Date Provider Last Modified By Organization Details Last Modified Time Details Appointments None recorded. Lab alpha-1-ant itrypsin (aat), QN, serum [address] (Lab), [address] [place], [address], 5 11:22:29 mitochondri al M2 igg Ab, serum [address] (Lab), [address] [place], [address], 5 11:22:38 hepatitis C virus Ab, serum [address] (Lab), [address] [place], [address], 5 11:23:10 ceruloplasm in, serum [address] (Lab), [address] [place], [address], 5 11:22:48 actin smooth muscle Ab, serum [address] (Lab), [address] [place], [address], 5 11:23:01 vitamin D, 25-hydroxy, total, serum 2023 024 MARIA LUISA [facility] (Lab), [address] [place], [address], 4 21:03:52 TSH, serum or plasma 2023 024 [email or web address] [facility] (Lab), [address] [place], [address], 08:14:47 CBC 2023 [facility] (Lab), [address] [place], [address], 21:03:52 Referral None recorded. Procedures None recorded. Surgeries None recorded. Imaging US, elastogram - Please contact patient to schedule 2024 [facility], [address] [facility], [place], [address], 16:10:57 US, abdomen, complete - Please call patient to schedule. [address] [facility] (One Call Scheduling), [address] [place], [address], 10:44:38 Medication Orders doxycycline hyclate 100 mg capsule 2023 [facility]/Pharmacy #[id number], [address] [place], [address], 17:04:49 cyanocobala min (vit B-12) 1,000 mcg tablet 2023 [facility]/Pharmacy #[id number], [address] [place], [address], 16:26:34 Patient TargetsNo targets recorded. Patient Instructions Encounter Date Encounter Id Patient Instructions Last Modified By Organization Details Last Modified Time 06/11/2024 [id number] paronychia: care instructions Not available 06/11/2024 16:29:31 10/16/2024 [id number] EXERCISE 300 MIN PER WEEK. [email or web address] Not available 10/16/2024 12:04:48 PT WITH FATTY , MOST LIKELY KENNEDY . NEED TO R/O OTHER LIVER DZ. F/U PRN . [email or web address] Not available 10/16/2024 12:05:23 Reason for Referral None Reported. Results Created Date Observation Date Name Description Value Unit Range Abnormal Flag Note LastModifiedBy Organization Detail LastModifiedTime 06/26/20 24 06/26/2024 US, abdom en, compl ete No observ ation record ed. [facility] [address], [place], [address], 07/02/2024 15:05:49 07/16/20 24 07/16/2024 XR, hand, 3 or more view No observ ation record ed. [email or web address] [facility] [address], [place], [address], 07/17/2024 08:58:56 09/25/19 25 09/16/2024 imagi ng/di agnos tic resul t No observ ation record ed. Not Available 09/25 16:18:46 11/05/19 25 10/25/2024 US, elast ogram No observ ation record ed. [facility] [address] [place], [address], 11/06/2024 10:16:26 Result Notes None recorded. Problems Name Problem SNOMED Code Status Onset Date Resolution Date Notes Provider Name and Address Organization Details Recorded Time Benign hypertensi on 73471500 Active Not Available [facility] 3 01:17:56 Chronic back pain 686135514 Active Not Available [facility] 3 01:17:56 Abnormal weight gain 832625018 Active Not Available [facility] 3 01:17:56 Backache 535242066 Active Not Available [facility] 3 01:17:56 Indigestio n 429547513 Active Not Available [facility] 3 01:17:56 Asthma 809003444 Active Not Available [facility] 3 01:17:56 Prolapsed lumbar interverte bral disc 178437681 Active Not Available [facility] 3 01:17:56 Spondyloly sis 283879672 Active Not Available [facility] 3 01:17:56 Ankle pain 915158802 Active Not Available [facility] 3 01:17:56 Renal pain 551802767 Active Not Available [facility] 3 01:17:56 Low back pain 259011204 Active Not Available [facility] 3 01:17:56 Lesion of stomach 930205276 Active Not Available [facility] 3 01:17:56 Difficulty sleeping 384226928 Active Not Available [facility] 3 01:17:57 Hypertrigl yceridemia 188338171 Active Not Available [facility] 3 01:17:57 Knee pain Active Not Available [facility] 3 01:17:57 Obesity 664186849 Active Not Available [facility] 3 01:17:57 Allergic reaction 275946467 Active Not Available [facility] 3 01:17:57 Eczema 80342692 Active Not Available [facility] 3 01:17:57 Foot pain 16434975 Active Not Available [facility] 3 01:17:57 Hand pain 15272494 Active Not Available [facility] 3 01:17:57 Talipes planus 74827172 Active Not Available [facility] 3 01:17:57 Oral lichen planus 987425728 Active 2020 Not Available [facility] 3 01:17:56 Dry skin dermatitis 161801470 Active 2021 Not Available [facility] 3 01:17:56 Tinea pedis 7189103 Active 2021 Not Available [facility] 3 01:17:57 Mixed anxiety and depressive disorder 020657707 Active 2022 Earlene Garcia MD [address], [place], [address] , [facility] 3 08:19:41 Degenerati on of lumbar interverte bral disc 04697832 Active 2022 Earlene Garcia MD [address], [place], [address] , [facility] 3 08:20:11 Abdominal pain 48570483 Active 2022 Earlene Garcia MD [address], [place], [address] , [facility] 3 08:23:47 Degenerati on of cervical interverte bral disc 73078552 Active 2022 Earlene Garcia MD [address], [place], [address] , [facility] 3 09:46:37 Hernia of anterior abdominal wall 020440974 Active 2022 Earlene Garcia MD [address], [place], [address] , [facility] 3 09:48:17 Umbilical hernia 279323191 Active 2022 Earlene Garcia MD [address], [place], [address] , [facility] 3 09:33:40 Fatigue 30712970 Active 2022 Earlene Garcia MD [address], [place], [address] , [facility] 3 09:48:09 Male hypogonadi sm 72552427 Active 2022 Earlene Garcia MD [address], [place], [address] , [facility] 3 09:19:50 Gastroesop hageal reflux disease without esophagiti s 277925781 Active 2022 Earlene Garcia MD [address], [place], [address] , [facility] 3 09:26:02 Pain in left thumb 8681910465603 100 Active 2022 Earlene Garcia MD [address], [place], [address] , [facility] 3 09:29:50 Pain of left hand 9250460296524 03 Active 2022 LAUREN García null, [facility] 3 09:03:31 Rib pain 935178067 Active 2022 Earlene Garcia MD [address], [place], [address] , [facility] 3 12:36:23 Restless legs syndrome 60933676 Active 2022 Earlene Garcia MD [address], [place], [address] , [facility] 3 12:40:29 Arthritis of first carpometac arpal joint of left hand 9693106188800 103 Active 2022 Thelma Huston CMA null, [facility] 3 09:26:24 Tibialis anterior tendinitis 154775032 Active 2023 Colby Galaviz DPM [address], [place], [address] , [facility] 4 13:43:40 Congenital pes planus 75878787 Active 2023 Colby Galaviz DPM [address], [place], [address] , [facility] 4 13:43:56 Bunion 319281046 Active 2023 Colby Galaviz DPM [address], [place], [address] , [facility] 4 13:44:09 Curly toe 619630401 Active 2023 Colby Galaviz DPM [address], [place], [address] , [facility] 4 13:44:19 Ingrowing toenail 179019701 Active 2023 Colby Galaviz DPM [address], [place], [address] , [facility] 4 13:45:41 Skin lesion 57248730 Active 2023 WANDY Colon[facility] [address], [place], [address] , [facility] 4 09:09:40 Cobalamin deficiency 688414256 Active 2023 W[facility] [address], [address], [place], [address] , [facility] 4 16:21:36 Vitamin D deficiency 77824645 Active 2023 [facility] [address], [place], [address] , [facility] 4 10:55:08 Cellulitis of toe 87083866 Active 2023 Colby Galaviz DPM [address], [place], [address] , [facility] 4 17:04:39 Gallstone 463428239 Active 2023 [facility] [address], [place], [address] , [facility] 4 11:42:44 Metabolic dysfunctio n-associat ed steatohepa titis 211301949 Active 2024 Berna Duke MD [address], [place], [address] , [facility] 5 11:50:37 Notes:Obesity with mild OSAH S, AHI = 14, 01/25/21, on autoCPAP 7-10 cmH2O Problem Notes None recorded. Procedures Surgical History Date Name Laterality Status Provider Name and Address Organization Details Recorded Time 4 Partial Nail [employer] Matrixectomy- Right completed Colby Galaviz DPM [address], [place], [address], [facility] [employer] [facility] [employer] [facility] 06/11/2024 16:28:12 4 Partial Nail [employer] Matrixectomy- Left completed Colby Galaviz DPM [address], [place], [address], [facility] [employer] [facility] 06/11/2024 16:28:17 3 Hernia Surgery completed Linda Knight MA [place] [employer] [facility] 06/14/2023 14:12:39 Imaging Results None recorded. Procedure Notes None recorded. Medical Equipment None Reported. Allergies Allergen ID Allergen Name Allergen Category Reaction Reaction Severity Criticality Documentation Date Start Date Code Code System Note Provider Name and Address Organization Details Recorded Time 2316 POLL[employer] EXTRACT[employer] environme nt,medica tion Not available Not available Not available 11/16/2022 94440 6 RxNorm Not Available [facility] 3 01:24:58 2317 mold extract environme nt Not available Not available Not available 11/16/2022 67813 8 RxNorm Not Available [facility] 3 01:24:58 2318 Vaccine product containin g only influenza virus antigen (medicina l product) medicatio n angioedem a moderate Not available 11/16/20222014 10900 95284 105 SNOMED Not Available [facility] 3 01:24:58 2319 adhesive environme nt,medica tion Not available Not available Not available 11/16/2022 Not Available [facility] 3 01:24:59 Medications Name Sig Start [...] hours by intramusc ular route. 10/26 completed 44248 2E Not Available Not Available Not Available [...] , administe red by provider 2022 active [facility]: 0003- 0494- 20 Not Available Not Available [...] e cypionate 200 mg/mL intramuscul ar oil active Not Available Not Available Not Available ibuprofen 600 mg tablet active Not [...] TO 1 TAB BY MOUTH TWICE DAILY THEREARLINEE R. 11/19 completed Not Available Not Available [...] %) injection solution in office 06/15 completed [facility] 51315 -064- 01 Not Available Not Available Not Available Pepper Garcia [facility] spacer USE WITH INHALER active Not [...] in Arterial blood by Pulse oximetry Systolic And Diastolic Provider Name and Address Organization Details Last Updated DateTime 5 175.26 cm 34.7 kg/m2 415072. 21 g 96 /min 97 % 97 % 146/98 mm[Hg] LAUREN Zarco [place] [employer] [facility] 5 11:39:29 Date Recorded Body height Body mass index (BMI) Body weight Heart rate Respiratory rate Oxygen saturation Oxygen saturation in Arterial blood by Pulse oximetry Systolic And Diastolic Provider Name and Address Organization Details Last Updated DateTime 4 175.26 cm 35.7 kg/m2 810294. 35 g 82 /min 14 /min 99 % 99 % 129/90 mm[Hg] Rimma Ruano [facility] 4 14:54:07 Date Recorded Body height Body mass index (BMI) Body weight Body temperature Heart rate Oxygen saturation Oxygen saturation in Arterial blood by Pulse oximetry Systolic And Diastolic Provider Name and Address Organization Details Last Updated DateTime 4 175.26 cm 34.7 kg/m2 712241. 21 g 96.7 [degF] 82 /min 94 % 94 % 124/86 mm[Hg] Shu Varela RN [facility] 4 16:05:08 Date Recorded Body height Body mass index (BMI) Body weight Provider Name and Address Organization Details Last Updated DateTime 06/27/2024 175.26 cm 34.7 kg/m2 715708.21 g Rimma Ruano [facility] 06/27/2024 16:56:49 Date Recorded Body height Body mass index (BMI) Body weight Body temperature Heart rate Respiratory rate Oxygen saturation Oxygen saturation in Arterial blood by Pulse oximetry Provider Name and Address Organization Details Last Updated DateTime 4 175.26 cm 34.7 kg/m2 525008. 21 g 98.6 [degF] 76 /min 14 /min 96 % 96 % Linda Knight MA [facility] 4 10:33:28 Social History Question Answer Notes LastModified by Organizat ion Details LastModified Time Tobacco Smoking Status Never Smoker Not Available [facility] 11/16/2022 01:10:04 Do You Have An Advance Directive? No [id number] Information not available 11/16/2022 What Is Your Level Of Caffeine Consumption? Heavy MIGRATION.[id number] 026 Information not available 11/16/2022 How Much Tobacco Do You Chew? None MIGRATION.[id number] 026 Information not available 11/16/2022 In The 14 Days Before Symptom Onset, Have You Had Close Contact With A Laboratory-confirm ed COVID-19 While That Case Was Ill? No MIGRATION.[id number] 026 Information not available 11/16/2022 In The 14 Days Before Symptom Onset, Have You Had Close Contact With A Person Who Is Under Investigation For COVID-19 While That Person Was Ill? No [id number].[id number] 026 Information not available 11/16/2022 What Type Of Diet Are You Following? REGULAR [id number].[id number] 026 Information not available 11/16/2022 Which Illicit Or Recreational Drugs Have You Used? No MIGRATION.[id number] 026 Information not available 11/16/2022 Do You Use Your Seat Belt Or Car Seat Routinely? Yes [email or web address] Information not available 01/18/2023 How Much Tobacco Do You Smoke? No MIGRATION.2395010 026 Information not available 11/16/2022 Do You Participate In Social Media? Yes [email or web address] Information not available 01/18/2023 Do You Use Sunscreen Routinely? No MIGRATION.1130344 026 Information not available 11/16/2022 Has Tobacco Cessation Counseling Been Provided? No Information not available 01/18/2023 Sex: Unknown Functional Status Question Answer Note LastModified by Organizat ion Details LastModified Time Do you use any illicit or recreational drugs? Yes [email or web address] Information not available 01/18/2023 Do you or have you ever used any other forms of tobacco or nicotine? No Information not available 01/18/2023 What is your level of alcohol consumption? None MIGRATION.[id number] Information not available 11/16/2022 Do you or have you ever used smokeless tobacco? Never used smokeless tobacco MIGRATION.254154 1960 Information not available 11/16/2022 Do you or have you ever used e-cigarettes or vape? Never used electronic cigarettes MIGRATION.[id number] Information not available 11/16/2022 What is your exercise level? Moderate MIGRATION.743727 7372 Information not available 11/16/2022 Mental Status Question Answer Note LastModified by Organization D etails LastModified Time Do you feel stressed (tense, restless, nervous, or anxious, or unable to sleep at night)? [id number] Information not available 01/18/2023 Family History Nothing Reported Notes:adopted Patient Adop wilmer Medical History Condition Response SLEEP APNEA N MRSA N ALLERGIES/HAYFEVER N LUNG DISEASE/DISORDER N INSOMNIA N RADIATION / CHEMOTHERAPY N COPD N HIGH CHOLESTEROL / HYPERLIPIDEMIA N HYPERTHYROIDISM N BLOOD DISEASES N EAR OR HEARING PROBLEMS N HYPOTHYROIDISM N DEPRESSION (INCLUDING POST ) N HAVE YOU BEEN HOSPITALIZED OR SEEN IN [facility] ER IN THE PAST YEAR ? N STROKE/TIA N ULCERS N OBESITY N HISTORY WITH COMPLICATIONS WITH ANESTHES IA ? N ANEURYSM N NO SIGNIFICANT PAST MEDICAL HISTORY N USE OF BLOOD THINNERS N DIABETES, TYPE N PARATHYROID DISEASE N ENT N SEASONAL ALLERGIES N HEARTBURN / REFLUX N HEPATITIS / LIVER DISEASE N SLEEP DISORDER N HEADACHES/MIGRAINES Y SEIZURES/EPILEPSY N CHF N PACEMAKER N DIZZINESS N HEART DISEASE/HEART PROBLEMS N AIDS/HIV N FRACTURES N HYPERTENSION N CANCER: SPECIFY N TOURETTE'S N BLOOD TRANSFUSION N ANESTHESIA COMPLICATIONS N ANEMIA/BLOOD DISORDER N CHRONIC EAR INFECTIONS N TUBERCULOSIS N Immunizations Vaccine Type Date Status Note Provider Nam e and Address Organization Details Recorded Time Influenza, split virus, quadrivalent, PF 06/23/2015 completed Not Available [facility] 01:24:49 Past Encounters Encounter ID Performer Location Encounter Start Date Encounter Closed Date Diagnosis/Indication Diagnosis SNOMED-CT Code Diagnosis ICD10 Code Diagnosis IMO Codes Diagnosis Note [id number] Earlene Garcia MD [facility] Primary Care [address] [place] [address] 01/06/2021 00:00:00 01/13/2021 17:33:30 [id number] Earlene Garcia MD [facility] Primary Care [address] [place] [address] 02/03/2021 00:00:00 02/03/2021 13:17:27 [id number] Juan Beaulieu MD [facility] [place] [address] [place] [address] 03/18/2021 00:00:00 03/18/2021 12:12:35 [id number] Earlene Garcia MD [facility] Primary Care [facility] [address] [facility] [address] [place] [address] 05/06/2021 00:00:00 05/06/2021 09:54:03 [id number] Earlene Garcia MD [facility] [address] [facility] [address] [place] [address] 08/09/2021 00:00:00 08/09/2021 10:55:14 [id number] Earlene Garcia MD [facility] [place] [address] [place] [address] 09/06/2021 00:00:00 09/06/2021 12:46:16 [id number] Earlene Garcia MD [facility] [place] [address] [place] [address] 12/06/2021 00:00:00 12/06/2021 09:01:30 [id number] Earlene Garcia MD [facility] [place] [address] [place] [address] 03/07/2022 00:00:00 03/07/2022 09:17:49 [id number] [facility] _ATHENA_M IGRATION_ DEFAULT_1 _1 , 03/25/2022 00:00:00 03/27/2022 15:05:27 [id number] [facility] [place] [address] [facility] [address] [place] [address] 04/18/2022 00:00:00 04/18/2022 12:03:37 [id number] Earlene Garcia MD [facility] [place] [address] [place] [address] 06/07/2022 00:00:00 06/07/2022 10:03:50 [id number] Earlene Garcia MD [facility] [place] [address] [place] [address] 09/06/2022 00:00:00 09/06/2022 09:48:08 [id number] Earlene Garcia MD [facility] [place] [address] [place] [address] 10/19/2022 00:00:00 10/19/2022 09:41:42 [id number] Earlene Garcia MD [facility] [place] [address] [place] [address] 11/16/2022 13:56:24 11/17/2022 10:37:43 Degeneration of cervical intervertebral disc 11411611 M50.30 no interval changelast MRI showed degenerati [...] guard from loss/theft controlled substance contract signed 10/19/22disc ussed new controlled substance policy, next month will decrease to #90 oxycodone/ apap and then down to #60 thereafter 50 pound lifting restrictio nIL prescripti on monitoring website reviewedUD S appropriat e 09/06/22 Hernia of anterior abdominal wall 024623100 K43.9 pt with bloating and appetite change and abd painhernia noted on examwill get CT abd/pelvis call/retur n if no improvemen t in 1-2 days or sooner if neededrevi ewed s/s that warrant urgent/freya rgent eval in meantime [id number] Earlene Garcia MD [facility] Primary Care [address] [place] [address] 01/18/2023 09:11:32 01/18/2023 10:16:56 Umbilical hernia 608329770 K42.9 K40.20 Degenerati on of lumbar intervertebral disc 42334227 M51.36 Fatigue 26004974 R53.83 R63.5 [id number] Earlene Garcia MD [facility] Primary Care [address] [place] [address] 02/22/2023 09:04:28 02/22/2023 11:05:18 Male hypogonadism 76371403 E29.1 reviewed labsbegin testostero ne replacemen t 0.5 ml q2 weeksf/u in 3 months or sooner if needed Degenerati on of lumbar intervertebral disc 35520547 M51.36 not in good controlinc rease oxycodone/ apap to tid dosing for 1 month then reassess Gastroesop hageal reflux disease without esophagitis [id number] K21.9 Avoid greasy/spi cy/acidic foodEat small, frequent mealsCall if any worsening symptoms including increased pain or blood in stools or if symptoms do not resolve in 14 dayspantop razole 40 mg daily Pain in left thumb 35042 71502 543804 M79.645 ortho referral [id number] Earlene Garcia MD [facility] Primary Care [facility] [address] [facility] [address] [place] [address] 02/28/2023 10:31:14 02/28/2023 16:37:33 [id number] Power Carter MD [facility] Ortho [place] [address] [place] [address] 03/01/2023 08:46:00 03/01/2023 12:04:17 Pain of left hand [id number] 88851 M79.642 [id number] Clifton cruz MD [facility] General Surgery [address] [address] 05/02/2023 11:05:48 05/02/2023 15:01:36 Umbilical hernia [id number] K42.9 [id number] Clifton cruz MD [facility] General Surgery [address] [place], [place] [address]., [address] [address] 05/30/2023 12:04:25 05/31/2023 14:36:42 [id number] Earlene Garcia MD [facility] Primary Care [facility] [address] [facility] [address] [place] [address] 06/15/2023 12:01:40 06/15/2023 12:45:21 Male hypogonadism 39308200 E29.1 recheck labs and increase testostero ne replacemen t if neededf/u in 3 months or sooner if needed Degenerati on of lumbar intervertebral disc 30343702 M51.36 stablecont inue increase oxycodone/ apap tid Rib pain 289001165 R07.8 1 Fatigue 75081257 R53.83 R63.5 Restless l egs syndrome 34321879 G25.81 [id number] Earlene Garcia MD [facility] Primary Care [place] [address] [place] [address] 06/16/2023 08:17:29 06/16/2023 16:14:50 [id number] Power Carter MD [facility] Ortho [place] [address] [place] [address] 07/14/2023 09:02:13 07/14/2023 10:09:58 Arthritis of first carpometacarpal joint of left hand [id number] 916210 M13.625 [id number] Earlene Garcia MD [facility] Primary Care [place] [address] [facility] [address] [place] [address] 12/04/2023 09:10:16 12/04/2023 09:54:23 Arthritis of first carpometacarpal joint of left hand [id number] 210384 M13.842 last injection 07/10, not helpfulwou ld like second opinion Eczema 35088343 L30.9 not in good controltri amcinolone 40 mg IM x 1continue triamcinol one bid and clobetasol 0.05% for up to 2 weeks at a time [id number] Colby Galaviz DPM [facility] Podiatry [place] [address] [place] [address] 03/04/2024 10:58:56 03/05/2024 15:23:15 Congenital pes planus 67537935 Q66.51 Q66.52 educated on x-raysEduc ated on orthoticsr ecommend [facility] Tibialis a nterior tendinitis 646821997 M76.819 left footrice therapyno strenuous activities work release given- patient states he is able to return work and does not want to be off work any longermay obtain topical Voltaren gel apply to the area pain per instructio nsfollow-u p as 2 weeks if continues to be problemati c Bunion 102076373 M21.61 9 educated on treatment optionsRec ommend [facility] with supportive shoe gear Curly toe 384315240 M20. 5X9 adductovar us rotation 4th and 5th toes leftconser vative offloading and supportive shoe gearRecomm end orthotics Ingrowing toenail 184052 009 L60.0 bilateral great toenailsBr iefly discuss treatment optionsFol low-up for partial matrixecto my of the offending nail corners [id number] AURELIANO Colon [facility] Primary Care [address] [place] [address] 03/05/2024 09:26:55 03/05/2024 10:15:02 Degeneration of lumbar intervertebral disc 20618822 M51.36 Drug of abuse screen 897 03607 Z02.83 Pt denies any lending, selling, or borrowing of medication s. Denies any cp, sob, palpitatio ns, or unusual weight loss.Revie wed controlled substance agreement requiremen ts. Refill given.[place] PDMP checked today. [id number] AURELIANO Colon [facility] Primary Care [address] [place] [address] 05/07/2024 08:53:41 05/07/2024 09:24:25 Arthritis of first carpometacarpal joint of left hand 4966539854 228367 M13.842 ROM and strength are limited Skin lesion 75873311 L98 .9 Degenerati on of lumbar intervertebral disc 28732158 M51.36 exacerbati on noted recently to lumbar backROM and strength are limited to painnumbne ss/tinglin g to federico feet continuesa lready seeing pain management for this issue, given referral to ortho spine surgeonRTW to be determined he will update this office with dates needed to complete forms [id number] Colby Galaviz DPM [facility] Podiatry [place] [address] [facility] [address] [place] [address] 06/11/2024 14:40:35 06/12/2024 13:38:45 Ingrowing toenail 816526774 L60.0 bilateral great toenailsri ght medial corner nail spicule great toeboth corners left great toe thisdiscus sed treatment options patient elects to continue with planned procedurec are daily if becomes infected returned to office immediatel yFollow-up in 10 days [id number] AURELIANO Colon [facility] Primary Care [place] [address] [facility] [address] [place] [address] 06/19/2024 15:58:35 06/19/2024 16:39:55 Degeneration of lumbar intervertebral disc 82638100 M51.369 Has been doing PTsaw pain management yesterdayM RI will be completed on July 25, cervical and lumbarshou ld have oxycodone 7.5 available at [facility] Abdominal pain 47599187 R10.9 abd pain noted to right lower abd Fatigue 73853630 R53.83 Cobalamin deficiency 190 236920 E53.8 [id number] Colby Galaviz DPM [facility] Podiatry [place] [address] [place] [address] 06/27/2024 16:47:34 07/01/2024 10:53:36 Ingrowing toenail 884388935 L60.0 bilateral great toenailsco ntinue wound care dailyFollo w-up in 10 days Cellulitis of toe 704243 04 L03.031 right great toe [id number] Clifton cruz MD [facility] General Surgery [address] [address] 07/18/2024 10:28:36 07/18/2024 12:09:00 Abdominal pain 18695874 R10.9 [id number] Berna Duke MD [facility] General Surgery [address] [facility] [address] [address] 10/16/2024 11:31:45 10/16/2024 12:04:29 Metabolic dysfunction-associate d steatohepatitis 106768590 K75.81 Hepatitis C screening 41 6084359 Z11.59 Health Concerns Section Related Observation LastModified by Organization Detai ls LastModified Time None Recorded Concern Status LastModified by Organization Details LastModified Time None Recorded Advance Directives Directive N: Payers Insurance Date Sequence Insurance Name Policy Number Policy Cordero Covered Member ID Cordero Member ID Guarantor Name 10/14/2024 1 [place] [id number] Dina Saunders [id number] Dina Saunders 10/16/2024 1 [facility] (MEDICAID HMO) [id number] Dina Saunders [id number] Dina Saunders 10/14/2024 [facility] Dina Saunders SELF SELF Dina Saunders Notes Date Note Type Note Provider Name [...] any other complaints. Colby Galaviz DPM [address], [place], [address], [employer] 06/11/2024 16:30:08 06/19/2024 text/html pt is here for f/u AURELIANO Colon [address], [place], [address], [employer] 06/19/2024 16:37:42 06/27/2024 text/html . Patient is [...] any other complaints. Colby Galaviz DPM [address], [place], [address], [employer] 07/01/2024 09:05:42 07/18/2024 text/html Patient complains of a feeling of something pushing outwards in his right upper abdomen. Has had for several months. Denies nausea vomiting, pain after meals, changes in bowel habits or any other constitutional symptoms. Has chronic back issues, We will see a spine surgeon in the next few weeks. Clifton Bailon MD [address], [facility] [address], [place], [address], [facility] [employer] [facility] [employer] [facility] [employer] 07/18/2024 14:40:00 10/16/2024 text/html ROS as noted in the HPI DINA WAS SEEN IN THE OFFICE TODAY FOR EVALUATION . PT C/O ABD PAIN . RUQ U/S SHOWED FATTY LIVER ALONG WITH GB SLUDGE . PT REPORTS BACK INJURY AND IS IN PT NOW. HE DENIES FAST FOODS / ETOH USE/ DM. HE DOES NOT EXERCISE MUCH . HE DENIES LIVER DZ . Berna Duke MD [address], [facility] [address], [place], [address], [employer] 10/16/2024 12:06:30
== END 2025-07-30 09:41 | disposition home or self-care (01) ==
PROVIDERS: Visit Provider Physician Assistant Surgical
DX: M18.0 Bilateral primary osteoarthritis of first carpometacarpal joints (principal); Z98.890 Other specified postprocedural states
CPT/HCPCS: 73130